=== PATIENT | male | born 1935 | race Caucasian/White ===

== ENCOUNTER → 2016-06-29 | Outpatient (CLI) | payer OTHER ==
[~2016-06-29] MED LIST: BIMA0.01 OPB; CZR50 PO; ONDA4TAB7 SL
[2016-06-29 17:31] LABS: BASO % 0.6 %; BASO ABS # 0.04 K/uL (0-0.2); COMPLETE YES; EOS % 3.6 %; HEMATOCRIT 33.9 % (42-52); IG% 0.2 %; LYMPH ABS # 2.61 K/uL (1.2-3.4); MEAN CELL VOLUME 90.2 fL (80-100); MEAN CORPUSCULAR HEMOGLOBIN 31.1 pg (25-34); MEAN CORPUSCULAR HGB CONC 34.5 g/dl (32-36); MEAN PLATELET VOLUME 11.3 fL (7.4-10.4); MONO % 6.3 %; NEUT % 48.3 %; PLATELET COUNT 207 K/uL (130-400); RED BLOOD COUNT 3.76 M/uL (4.7-6.1); WHITE BLOOD COUNT 6.36 K/uL (4.8-10.8)
[2016-06-29 17:43] LABS: ALT/SGPT 29 U/L (12-78); BLOOD UREA NITROGEN 26 mg/dl (7-18); BUN/CREATININE RATIO 26.1 (10-20); CALCIUM 8.7 mg/dl (8.5-10.1); CARBON DIOXIDE 27 mmol/L (21-32); CHLORIDE 105 mmol/L (98-107); CHOLESTEROL 195 mg/dl (0-200); CREATININE 0.99 mg/dl (0.60-1.40); GLUCOSE 89 mg/dl (70-99); POTASSIUM 4.2 mmol/L (3.5-5.1); SODIUM 140 mmol/L (136-145)
[2016-06-29 17:54] LABS: ALB/GLOB RATIO 1.2 (0.9-2); ALKALINE PHOSPHATASE 63 U/L (45-117); AST/SGOT 25 U/L (15-37); CHOLESTEROL/HDL RATIO 3.8; HDL CHOLESTEROL 51 mg/dl; LDL CHOLESTEROL CALCULATED 96 mg/dl; TRIGLYCERIDES 239 mg/dl (0-150); VERY LOW DENSITY LIPOPROT CALC 48 mg/dl
[2016-06-30 06:22] LABS: ESTIMATED AVERAGE GLUCOSE 120 mg/dl; HA1C FLAG Normal (Normal)
== END | disposition home or self-care (01) ==
LOC: C.LABBFT 12:47
PROVIDERS: ATTEND Internal Medicine
DX: E78.5 Hyperlipidemia, unspecified (principal); R73.01 Impaired fasting glucose; D64.9 Anemia, unspecified

== ENCOUNTER → 2016-07-04 | Outpatient (CLI) | payer OTHER | END | disposition home or self-care (01) | LOC: C.LABSPEC 16:06 | PROVIDERS: ATTEND Internal Medicine | DX: Z00.00 Encounter for general adult medical examination without abnormal findings (principal) ==

== ENCOUNTER → 2016-07-24 | Outpatient (CLI) | payer OTHER ==
[2016-07-24 12:53] LABS: BASO % 0.5 %; BASO ABS # 0.03 K/uL (0-0.2); COMPLETE YES; EOS % 5.4 %; HEMATOCRIT 33.8 % (42-52); LYMPH % 40.2 %; LYMPH ABS # 2.31 K/uL (1.2-3.4); MEAN CELL VOLUME 89.7 fL (80-100); MEAN CORPUSCULAR HEMOGLOBIN 31.6 pg (25-34); MEAN CORPUSCULAR HGB CONC 35.2 g/dl (32-36); MEAN PLATELET VOLUME 11.2 fL (7.4-10.4); MONO % 7.7 %; NEUT % 46.2 %; PLATELET COUNT 212 K/uL (130-400); RED BLOOD COUNT 3.77 M/uL (4.7-6.1); WHITE BLOOD COUNT 5.75 K/uL (4.8-10.8)
[2016-07-24 12:58] LABS: ALT/SGPT 29 U/L (12-78); AMYLASE 31 U/L (25-115); BLOOD UREA NITROGEN 16 mg/dl (7-18); BUN/CREATININE RATIO 19.3 (10-20); CARBON DIOXIDE 30 mmol/L (21-32); CHLORIDE 102 mmol/L (98-107); CREATININE 0.81 mg/dl (0.60-1.40); GLUCOSE 99 mg/dl (70-99); POTASSIUM 3.7 mmol/L (3.5-5.1); SODIUM 138 mmol/L (136-145)
[2016-07-24 13:01] LABS: ALB/GLOB RATIO 1.3 (0.9-2); ALKALINE PHOSPHATASE 64 U/L (45-117); AST/SGOT 27 U/L (15-37)
== END | disposition home or self-care (01) ==
LOC: C.LABBFT 11:06
PROVIDERS: ATTEND Internal Medicine
DX: R10.9 Unspecified abdominal pain (principal)

== ENCOUNTER → 2017-02-13 | Outpatient (CLI) | payer OTHER ==
--- NOTE | 2017-02-13 13:08 | DIAGNOSTIC IMAGING REPORT ---
CHEST 2 VIEWS ROUTINE CLINICAL HISTORY: R29.898 Xiphoid [id number] COMPARISON STUDY: 06/27/2014 FINDINGS: The cardiac and mediastinal contours are normal. There is no evidence of focal pulmonary consolidation. There is no evidence of failure. No pleural effusions are visualized.[ No xiphoid lesions are visualized however conventional radiography is insensitive for the detection of xiphoid abnormalities. IMPRESSION: No active disease in the chest. Electronically signed by: Young Moreau M.D. 02/13/2017 1:07 PM Dictated Date/Time: 02/13/2017 1:06 PM
== END | disposition home or self-care (01) ==
LOC: C.RAD1850 10:46
PROVIDERS: ATTEND Physician Assistant Medical
DX: R29.898 Other symptoms and signs involving the musculoskeletal system (principal)

== ENCOUNTER 2017-04-30 01:09 | Emergency (ER) | payer OTHER ==
[~2017-04-30] VITALS: Ht 193 cm; Wt 78.2 kg
[2017-04-30 01:15] VITALS: TEMP 36.4; Ht 193 cm; Wt 78.2 kg
[2017-04-30] MEDS ORDERED: ONDANSETRON INJ 2 MG/ML 2 ML VIAL IV STA (01:27)
--- NOTE | 2017-04-30 01:28 | EMERGENCY ROOM VISIT NOTE ---
History Report prepared by Adrien: Cesario Bello Under the Supervision of: Dr. Anselmo Sprague D.O. First contact with patient: 01:20 Chief Complaint: ABDOMINAL PAIN Stated Complaint: BURNING STOMACH,LEFT EAR PAIN History of Present Illness The patient is an 81 year old male who presents to the Emergency Room with complaints of persistent abdominal "aching" that he has been experiencing for the past week. He also describes a "burning" sensation in the stomach that he has been experiencing for the past month. The patient states that he came into the Emergency Department this evening because he felt pain in his left ear. He is nauseous but has not vomited to this point. 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 A total of ten systems were reviewed and were otherwise negative. Past Medical & Surgical Medical Problems: (1) Diverticulosis (2) Hyperlipemia Family History No pertinent family history Social History Smoking Status: Never Smoker Marital Status: Housing Status: lives with significant other Occupation Status: retired Current/Historical Medications Scheduled Bimatoprost (Lumigan), 1 DROP OPB HS Allergies Coded Allergies: Atorvastatin (Unverified Allergy, Intermediate, MUSCLE ACHES, CRAMPING, ) Physical Exam Vital Signs Date Time Temp Pulse Resp B/P (MAP) Pulse Ox O2 Delivery O2 Flow Rate FiO2 04/30/17 02:54 65 18 199/93 98 Room Air 04/30/17 01:36 57 04/30/17 01:15 36.4 58 18 186/82 99 Room Air Physical Exam GENERAL: Awake, alert, well-appearing, in no distress HENT: Normocephalic, atraumatic. Oropharynx unremarkable. EYES: Normal conjunctiva. Sclera non-icteric. NECK: Supple. No nuchal rigidity. FROM. No JVD. RESPIRATORY: Clear to auscultation. CARDIAC: Regular rate, normal rhythm. Extremities warm and well perfused. Pulses equal. ABDOMEN: Soft, non-distended. There is a midline abdominal defect present. No midline tenderness or abnormal pulses. No tenderness to palpation. No rebound or guarding. No masses. MUSCULOSKELETAL: Chest examination reveals no tenderness. The back is symmetrical on inspection without obvious abnormality. There is no CVA tenderness to palpation. No joint edema. LOWER EXTREMITIES: Calves are equal size bilaterally and non-tender. No edema. No discoloration. NEURO: Normal sensorium. No sensory or motor deficits noted. SKIN: No rash or jaundice noted. Medical Decision & Procedures ER Provider Diagnostic Interpretation: X ray results as stated below per my interpretation and radiologist interpretation. Other radiology results as stated below per my review and radiologist interpretation: CT ABDOMEN & PELVIS with Contrast: Central mesenteric stranding. This is nonspecific and can be seen with mesenteritis or panniculitis. Distal colong diverticulosis but no diverticula. Dense. No appendicitis. No colitis. NO bowel obstruction. No free air or free fluid. No obstructive uropathy. Small cyst at the lower pole fo the kidney. Gallbladder and pancreas are unremarkable. Laboratory Results 04/30/17 01:35 Red Blood Count 3.51, Mean Corpuscular Volume 87.5, Mean Corpuscular Hemoglobin 31.3, Mean Corpuscular Hemoglobin Concent 35.8, Mean Platelet Volume 10.2 04/30/17 01:35 Test 04/30/17 01:35 04/30/17 02:50 White Blood Count 5.02 K/uL (4.8-10.8) Red Blood Count 3.51 M/uL (4.7-6.1) Hemoglobin 11.0 g/dL (14.0-18.0) Hematocrit 30.7 % (42-52) Mean Corpuscular Volume 87.5 fL (80-100) Mean Corpuscular Hemoglobin 31.3 pg (25-34) Mean Corpuscular Hemoglobin Concent 35.8 g/dl (32-36) Platelet Count 215 K/uL (130-400) Mean Platelet Volume 10.2 fL (7.4-10.4) RDW Standard Deviation 40.2 fL (36.4-46.3) RDW Coefficient of Variation 12.5 % (11.5-14.5) Neutrophils % (Manual) 39.0 % Lymphocytes % (Manual) 17.7 % Variant Lymphocytes % (manual) 28.3 % Monocytes % (Manual) 4.4 % Eosinophils % (Manual) 9.7 % Basophils % (Manual) 0.9 % (0-2) Neutrophils # (Manual) 1.96 K/uL (1.4-6.5) Total Absolute Neutrophils 1.96 K/uL (1.4-6.5) Lymphocytes # (Manual) 0.89 K/uL (1.2-3.4) Absolute Variant Lymphocytes 1.42 K/uL Total Absolute Lymphocytes 2.31 K/uL (1.2-3.4) Monocytes # (Manual) 0.22 K/uL (0.11-0.59) Eosinophils # (Manual) 0.49 K/uL (0-0.5) Basophils # (Manual) 0.05 K/uL (0-0.2) Red Blood Cell Morphology Unremarkable Anion Gap 6.0 mmol/L (3-11) Est Creatinine Clear Calc Drug Dose 85.7 ml/min Estimated GFR () 99.9 Estimated GFR (Non- 86.2 BUN/Creatinine Ratio 19.7 (10-20) Calcium Level 8.6 mg/dl (8.5-10.1) Total Bilirubin 0.4 mg/dl (0.2-1) Direct Bilirubin 0.1 mg/dl (0-0.2) Aspartate Amino Transf (AST/SGOT) 24 U/L (15-37) Alanine Aminotransferase (ALT/SGPT) 23 U/L (12-78) Alkaline Phosphatase 62 U/L (45-117) Total Protein 7.0 gm/dl (6.4-8.2) Albumin 3.8 gm/dl (3.4-5.0) Lipase 158 U/L (73-393) Urine Color YELLOW Urine Appearance CLEAR (CLEAR) Urine pH 6.0 (4.5-7.5) Urine Specific [place] 1.027 (1.000-1.030) Urine Protein NEG (NEG) Urine Glucose (UA) NEG (NEG) Urine Ketones NEG (NEG) Urine Occult Blood NEG (NEG) Urine Nitrite NEG (NEG) Urine Bilirubin NEG (NEG) Urine Urobilinogen NEG (NEG) Urine Leukocyte Esterase TRACE (NEG) Urine WBC (Auto) 0 /hpf (0-5) Urine RBC (Auto) 0-4 /hpf (0-4) Urine Hyaline Casts (Auto) 0 /lpf (0-5) Urine Epithelial Cells (Auto) 5-10 /lpf (0-5) Urine Bacteria (Auto) NEG (NEG) Laboratory results reviewed by me Medications Administered Medications (Trade) Dose Ordered Sig/Patti Route Start Time Stop Time Status Last Admin Dose Admin Ondansetron HCl (Zofran Inj) 4 mg NOW STAT IV 04/30/17 01:27 04/30/17 01:28 DC 04/30/17 01:35 4 MG ED Course 0122: The patient was evaluated in room A10. A complete history and physical exam was performed. 0127: Ordered Zofran 4 mg IV. 0259: I reevaluated the patient. Discussed results and discharge instructions: He verbalized understanding and agreement. The patient is ready for discharge. Medical Decision Differential diagnosis: Etiologies such as appendicitis, diverticulitis, PUD, biliary pathology, UTI, pancreatitis, obstruction, mesenteric ischemia, aortic pathology, infections, inflammatory bowel disease, renal colic, as well as others were entertained. Patient has been having abdominal pain intermittently for the past 2 months. Patient denies fever vomiting diarrhea. Patient's complaint is nonspecific is diffuse in nature. Patient's lab work is normal. Patient's CAT scan is nonspecific I do not suspect the patient having ischemic bowel. On repeat examination the patient's abdomen at 3:40 AM, it is soft nontender there is no rebound rigidity guarding. I discussed the evaluation and recommended that the patient follow-up with his primary care physician and a GI physician Impression Primary Impression: Nonspecific abdominal pain Scribe Attestation The scribe's documentation has been prepared under my direction and personally reviewed by me in its entirety. I confirm that the note above accurately reflects all work, treatment, procedures, and medical decision making performed by me. Departure Information Dispostion Home / Self-Care Referrals Zack Melendez M.D. (PCP) Wayne Thao M.D. Patient Instructions Abdominal Pain - [facility], [facility] Additional Instructions Follow-up with your primary care physician this week. Return for increased pain fever or any concerns. Follow up with gastroenterology
[2017-04-30] MEDS ORDERED: OPTIRAY 320 IV PRN (01:30)
[2017-04-30 01:44] LABS: HEMATOCRIT 30.7 % (42-52); MEAN CELL VOLUME 87.5 fL (80-100); MEAN CORPUSCULAR HEMOGLOBIN 31.3 pg (25-34); MEAN CORPUSCULAR HGB CONC 35.8 g/dl (32-36); MEAN PLATELET VOLUME 10.2 fL (7.4-10.4); PLATELET COUNT 215 K/uL (130-400); RED BLOOD COUNT 3.51 M/uL (4.7-6.1); WHITE BLOOD COUNT 5.02 K/uL (4.8-10.8)
[2017-04-30 02:02] LABS: BUN/CREATININE RATIO 19.7 (10-20); CALCIUM 8.6 mg/dl (8.5-10.1); CREATININE 0.76 mg/dl (0.60-1.40); POTASSIUM 3.7 mmol/L (3.5-5.1)
[2017-04-30 02:53] LABS: BASO ABS # 0.05 K/uL (0-0.2); BASOPHIL % 0.9 % (0-2); COMPLETE YES; EOSINOPHIL % 9.7 %; LYMPH ABS # 0.89 K/uL (1.2-3.4); LYMPHOCYTE % 17.7 %; VARIANT LYM ABS # 1.42 K/uL; VARIANT LYMPHOCYTE % 28.3 %
[2017-04-30 03:05] LABS: URINE APPEARANCE CLEAR (CLEAR); URINE BILIRUBIN NEG (NEG); URINE COLOR YELLOW; URINE NITRITE NEG (NEG); URINE SPECIFIC GRAVITY 1.027 (1.000-1.030); UROBILINOGEN NEG (NEG); ZZUR CULT IF INDIC CLEAN CATCH NO
[2017-04-30 03:13] LABS: MANUAL MICROSCOPIC REQUIRED? NO; REVIEW REQ? NO
[2017-04-30 03:57] VITALS: BP 199/89; PULSE 60; O2SAT 99
--- NOTE | 2017-04-30 07:19 | DIAGNOSTIC IMAGING REPORT ---
CT OF THE ABDOMEN AND PELVIS WITH CONTRAST CLINICAL HISTORY: Abdominal pain. COMPARISON STUDY: Abdominal series June 27, [address] of the abdomen and pelvis July 31, 2016. TECHNIQUE: Following IV administration of 93 mL of Optiray-320, axial images of the abdomen and pelvis were obtained from the lung bases to the proximal femurs. Images were reviewed in the axial, sagittal, and coronal planes. IV contrast was administered without complication. A dose lowering technique was utilized adhering to the principles of ALARA. CT DOSE: 330.49 mGy.cm FINDINGS: Visualized portions of the lower chest demonstrate several subpleural nodules which measure up to 6 mm. These are similar to CT of July 31, 2016 and include a 6 mm left lower lobe nodule shown on image 7 and a 6 mm right lower lobe nodule shown on image 3. A small hiatal hernia is present. The liver, spleen, adrenal glands and pancreas are unremarkable as is the right kidney. There is no hydronephrosis. There is no peripancreatic infiltration. No biliary or pancreatic ductal dilatation is present. A 1.5 cm cyst within the lower pole of the left kidney is noted. There is moderate atherosclerotic plaque of the abdominal aorta and branch vessels. There is mild mesenteric infiltration which is unchanged and of doubtful significance. Extensive sigmoid diverticulosis is noted without evidence for acute diverticulitis. There is no evidence for a bowel obstruction. The appendix is normal. There is evidence for previous right inguinal hernia repair with mesh. Several sclerotic lesions likely reflect bone on this. There are no suspicious osseous lesions. IMPRESSION: 1. No acute process within the abdomen or pelvis. 2. Extensive sigmoid diverticulosis without evidence for acute diverticulitis. 3. Moderate atherosclerotic plaque of the abdominal aorta and major branch vessels, suboptimally assessed on this non-CTA exam. 4. No bowel obstruction. Normal appendix. Electronically signed by: Donald Morse M.D. 04/30/2017 7:18 AM Dictated Date/Time: 04/30/2017 7:07 AM
== END 2017-04-30 03:55 | disposition home or self-care (01) ==
LOC: C.EDB 01:10 → C.EDA 03:55
DX: R10.9 Unspecified abdominal pain (principal); H92.02 Otalgia, left ear; R11.0 Nausea; K57.90 Diverticulosis of intestine, part unspecified, without perforation or abscess without bleeding; E78.5 Hyperlipidemia, unspecified

== ENCOUNTER 2017-05-10 21:48 | Emergency (ER) | payer OTHER ==
[~2017-05-10] VITALS: Ht 182.9 cm; Wt 78.9 kg
[~2017-05-10 21:48] MED LIST changes: -CZR50 PO; -ONDA4TAB7 SL
[2017-05-10 21:50] VITALS: TEMP 36.5; Ht 182.9 cm; Wt 78.9 kg
[2017-05-10] MEDS ORDERED: FAMOTIDINE 20 MG TAB PO STA (22:02)
[2017-05-10] MEDS ORDERED: SUCRALFATE 1 GM TAB PO STA (22:02)
[2017-05-10] MEDS ORDERED: GI COCKTAIL PO STA (22:02)
--- NOTE | 2017-05-10 22:08 | EMERGENCY ROOM VISIT NOTE ---
History Report prepared by Adrien: Wayne Lamb Under the Supervision of: Dr. Keith Martel M.D. First contact with patient: 21:56 Chief Complaint: CHEST PAIN Stated Complaint: CHEST PAIN, DIZZY- CARDIAC HX History of Present Illness The patient is an 81 year old male who presents to the Emergency Room with complaints of intermittent abdominal pressure beginning earlier today. The patient states he was here for similar symptoms two weeks ago, and he has follow up with GI four days from now. He reports his abdominal pain radiates to his chest. The patient notes he had episodes of hypertension, but that is the only cardiac history he has. Source of History: patient Onset: earlier today Position: abdomen Quality: pressure Timing: intermittent Associated Symptoms: + chest pain Review of Systems See HPI for pertinent positives & negatives. A total of 10 systems reviewed and were otherwise negative. Past Medical & Surgical Medical Problems: (1) Diverticulosis (2) Hyperlipemia Family History Heart disease Hypertension Social History Smoking Status: Never Smoker Marital Status: Housing Status: lives with significant other Occupation Status: retired Current/Historical Medications Scheduled Bimatoprost (Lumigan), 1 DROP OPB QAM Podiatric Products (Tinactin Foot/Sneaker Suresh), 1 SPRAY TOP DIRECTED Tamsulosin HCl (Tamsulosin HCl), 0.4 MG PO DAILY Allergies Coded Allergies: Atorvastatin (Unverified Allergy, Intermediate, MUSCLE ACHES, CRAMPING, ) Physical Exam Vital Signs Date Time Temp Pulse Resp B/P (MAP) Pulse Ox O2 Delivery O2 Flow Rate FiO2 05/10/17 23:32 78 16 156/88 98 05/10/17 23:01 59 16 173/88 99 Room Air 05/10/17 22:26 98 Room Air 05/10/17 22:03 59 05/10/17 21:57 97 Room Air 05/10/17 21:50 36.5 63 18 190/85 98 Room Air Physical Exam GENERAL: Patient is a healthy-appearing well-nourished 81 year old male. HEAD: Normocephalic atraumatic EYES: Ocular movements intact pupils equal and react to light OROPHARYNX mucous membranes are moist no exudates present no erythema or edema present NECK: Supple no nuchal rigidity CHEST: Good equal expansion LUNGS: Clear and equal to auscultation CARDIAC: Normal S1 and S2 ABDOMEN: Soft, minimally tender, no guarding or rebounding BACK: No CVA tenderness EXTREMITIES: No pain upon palpation normal muscle strength in all groups no clubbing cyanosis or edema NEURO: Patient is following commands and answering questions appropriately. Alert and oriented x3 Cranial Nerves 2-12 grossly intact Medical Decision & Procedures ER Provider Diagnostic Interpretation: Radiology results as stated below per my review and radiologist interpretation: CHEST ONE VIEW PORTABLE HISTORY: Pt c/o epigastric pain COMPARISON: Chest 02/13/2017. FINDINGS: The lungs are clear. Cardiac silhouette is normal in size. No pleural effusions. No pneumothorax. IMPRESSION: No acute process. Electronically signed by: Jose Walters M.D. 05/10/2017 11:11 PM Dictated Date/Time: 05/10/2017 11:09 PM [address] AND PELVIS CT WITH IV CONTRAST CT DOSE: 365.15 mGy.cm HISTORY: Pt c/o epigastric pain TECHNIQUE: Multiaxial CT images of the abdomen and pelvis were performed following the use of intravenous contrast. A dose lowering technique was utilized adhering to the principles of ALARA. COMPARISON STUDY: Abdomen and pelvis CT 04/30/2017. FINDINGS: There is a 6 mm subpleural nodule within the left lower lobe on image 17 and a 6 mm subpleural nodule within the right lower lobe on image 1. No pneumoperitoneum. No pneumatosis. Stable sclerotic foci within the L3 vertebral body and left posterior iliac bone. Mild bladder wall thickening, unchanged. Moderate calcified plaque within the normal caliber abdominal aorta. Mild central mesenteric stranding, unchanged. This favors a mesenteric panniculitis. No significant retroperitoneal or pelvic lymphadenopathy. Mild bilateral perinephric edema, unchanged. This is likely chronic. A 1.5 cm hypodense lesion within the lower pole the left kidney. This likely represents a cyst. No ureteral stones are hydronephrosis. There are 2 subcentimeter hypodense lesions within the pancreatic tail with the largest measuring 9 mm. 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 The liver, spleen, and adrenal glands are unremarkable. Normal gallbladder. Suggestion of prior right inguinal hernia repair. Colonic diverticulosis. No bowel wall thickening or obstruction. Normal appendix. IMPRESSION: 1. Overall, no significant change compared the prior study. 2. No bowel wall thickening or obstruction. 3. Colonic diverticulosis. 4. Mild bladder wall thickening which could be chronic. Recommend correlation with urinalysis. 5. Additional findings as described above. Electronically signed by: Jose Walters M.D. 05/10/2017 11:01 PM Dictated Date/Time: 05/10/2017 10:53 PM Laboratory Results 05/10/17 22:04 Red Blood Count 3.64, Mean Corpuscular Volume 86.5, Mean Corpuscular Hemoglobin 31.6, Mean Corpuscular Hemoglobin Concent 36.5, Mean Platelet Volume 10.5 05/10/17 22:04 Test 05/10/17 22:04 05/10/17 22:17 05/10/17 23:40 White Blood Count 5.48 K/uL (4.8-10.8) Red Blood Count 3.64 M/uL (4.7-6.1) Hemoglobin 11.5 g/dL (14.0-18.0) Hematocrit 31.5 % (42-52) Mean Corpuscular Volume 86.5 fL (80-100) Mean Corpuscular Hemoglobin 31.6 pg (25-34) Mean Corpuscular Hemoglobin Concent 36.5 g/dl (32-36) Platelet Count 218 K/uL (130-400) Mean Platelet Volume 10.5 fL (7.4-10.4) RDW Standard Deviation 39.2 fL (36.4-46.3) RDW Coefficient of Variation 12.2 % (11.5-14.5) Neutrophils % (Manual) 32.7 % Lymphocytes % (Manual) 27.4 % Variant Lymphocytes % (manual) 28.3 % Monocytes % (Manual) 2.7 % Eosinophils % (Manual) 7.1 % Basophils % (Manual) 1.8 % (0-2) Neutrophils # (Manual) 1.79 K/uL (1.4-6.5) Total Absolute Neutrophils 1.79 K/uL (1.4-6.5) Lymphocytes # (Manual) 1.50 K/uL (1.2-3.4) Absolute Variant Lymphocytes 1.55 K/uL Total Absolute Lymphocytes 3.05 K/uL (1.2-3.4) Monocytes # (Manual) 0.15 K/uL (0.11-0.59) Eosinophils # (Manual) 0.39 K/uL (0-0.5) Basophils # (Manual) 0.10 K/uL (0-0.2) Large Platelets 1+ Est Creatinine Clear Calc Drug Dose 86.2 ml/min Estimated GFR () 100.4 Estimated GFR (Non- 86.6 BUN/Creatinine Ratio 12.5 (10-20) Calcium Level 8.7 mg/dl (8.5-10.1) Total Bilirubin 0.4 mg/dl (0.2-1) Direct Bilirubin 0.1 mg/dl (0-0.2) Aspartate Amino Transf (AST/SGOT) 27 U/L (15-37) Alanine Aminotransferase (ALT/SGPT) 23 U/L (12-78) Alkaline Phosphatase 62 U/L (45-117) Total Creatine Kinase 110 U/L (39-308) Creatine Kinase MB 1.4 ng/ml (0.5-3.6) Creatine Kinase MB Ratio 1.3 (0-3.0) Troponin I < 0.015 ng/ml (0-0.045) Total Protein 7.2 gm/dl (6.4-8.2) Albumin 4.1 gm/dl (3.4-5.0) Lipase 173 U/L (73-393) Bedside Hemoglobin 10.9 g/dl (14.0-18.0) Bedside Hematocrit 32 % (42-52) Bedside Sodium 126 mEq/L (135-144) Bedside Potassium 4.1 mEq/L (3.3-5.0) Bedside Chloride 92 mEq/L (101-112) Bedside Total CO2 24 mEq/l (24-31) Anion Gap 15.0 mmol/L (16-25) Bedside Blood Urea Nitrogen 9 mg/dl (7-18) Bedside Creatinine 0.7 mg/dl (0.6-1.3) Bedside Glucose (other) 112 mg/dl (70-99) Bedside Ionized Calcium ([place]) 1.18 mmol/l (1.12-1.32) Urine Color YELLOW Urine Appearance CLEAR (CLEAR) Urine pH 8.5 (4.5-7.5) Urine Specific [place] 1.026 (1.000-1.030) Urine Protein NEG (NEG) Urine Glucose (UA) NEG (NEG) Urine Ketones NEG (NEG) Urine Occult Blood NEG (NEG) Urine Nitrite NEG (NEG) Urine Bilirubin NEG (NEG) Urine Urobilinogen NEG (NEG) Urine Leukocyte Esterase NEG (NEG) Labs reviewed by ED physician. Medications Administered Medications (Trade) Dose Ordered Sig/Patti Route Start Time Stop Time Status Last Admin Dose Admin Famotidine (Pepcid Tab) 20 mg NOW STAT PO 05/10/17 22:02 05/10/17 22:06 DC 05/10/17 22:16 20 MG Sucralfate (Carafate Tab) 1 gm NOW STAT PO 05/10/17 22:02 05/10/17 22:06 DC 05/10/17 22:16 1 GM Lidocaine HCl (Viscous Lidocaine 2% Soln) 20 ml STK-MED ONCE .ROUTE 05/10/17 22:10 05/10/17 22:11 DC 05/10/17 22:17 10 ML Al Hydroxide/Mg Hydroxide (Maalox Susp) 30 ml STK-MED ONCE .ROUTE 05/10/17 22:10 05/10/17 22:11 DC 05/10/17 22:16 30 ML ECG Indication: abdominal pain Rate (beats per minute): 60 Rhythm: sinus rhythm Findings: 1st degree AV block, LBBB (incomplete), no acute ischemic change, no ectopy Comparison ECG Date: 06/27/14 Change: no significant change ED Course 2157: Past medical records reviewed. The patient was evaluated in room C11B. A complete history and physical examination was performed. 2201: Ordered Sucralfate 1gm PO, Famotidine 20mg PO, Gi Cocktail 24ml PO 0: Ordered Maalox Susp 30ml .ROUTE, Lidocaine HCl 20ml .ROUTE 2308: Upon reexamination the patient is feeling better. I discussed results and treatment plan with the patient. She verbalizes agreement and understanding. The patient is ready for discharge. Medical Decision Differential diagnosis: Etiologies such as appendicitis, diverticulitis, PUD, biliary pathology, UTI, pancreatitis, obstruction, mesenteric ischemia, aortic pathology, infections, inflammatory bowel disease, renal colic, as well as others were entertained. This is an 81-year-old male who presents emergency department complaining of abdominal pain. The patient was given a GI cocktail, Pepcid and Carafate in the emergency department. Repeat examination revealed much improvement the patient's symptoms. An EKG as well as cardiac enzymes were obtained and I did offer the patient chest pain rule out admission however he wishes to go home as he is feeling better. I believe this is reasonable as I suspect his pain is abdominal in etiology. I recommended a clear liquid diet for the next 48 hours until he has follow-up with gastroenterology. Patient was in agreement with the treatment plan. Medication Reconcilliation Current Medication List: was personally reviewed by me Blood Pressure Screening Patient's blood pressure: Elevated blood pressure Blood pressure disposition: Referred to PCP Impression Primary Impression: Epigastric pain Scribe Attestation The scribe's documentation has been prepared under my direction and personally reviewed by me in its entirety. I confirm that the note above accurately reflects all work, treatment, procedures, and medical decision making performed by me. Departure Information Dispostion Home / Self-Care Referrals Zack Melendez M.D. (PCP) Forms Call Back Authorization, HOME CARE DOCUMENTATION FORM, IMPORTANT VISIT INFORMATION Patient Instructions ED Epigastric Pain Geovani, Erin [facility] Additional Instructions Take 5 ml Maalox before every meal and at bedtime Clear liquid diet next 48 hours Take Pepcid before bedtime Follow up with gastroenterology You were found to have an elevated blood pressure today (>120 sytolic or >90 diastolic). Per medicare guidelines, you need to follow up with this blood pressure screening with your Primary Care Physician (PCP). For a new PCP call [phone]. You have been examined and treated today on an emergency basis only. This is not a substitute for, or an effort to provide, complete comprehensive medical care. It is impossible to recognize and treat all injuries or illnesses in a single emergency department visit. It is therefore important that you follow up closely with Dr Melendez. Call as soon as possible for an appointment. Thank you for your time and consideration. I look forward to speaking with you again soon. Please don't hesitate to call us if you have any questions.
[2017-05-10] MEDS ORDERED: LIDOCAINE HCL 2% VISC SOLN 20 ML UDC ONE (22:10)
[2017-05-10] MEDS ORDERED: ALUMINUM/MAGNESIUM SUSP 30 ML UDC ONE (22:10)
[2017-05-10] MEDS ORDERED: OPTIRAY 320 IV PRN (22:15)
[2017-05-10] MEDS ORDERED: FLM4 PO (22:19)
[2017-05-10] MEDS ORDERED: [UNRECOGNIZED DRUG - OTHER] TOP (22:19)
[2017-05-10 22:26] VITALS: O2SAT 98
[2017-05-10 22:30] LABS: ISTAT CREATININE 0.7 mg/dl (0.6-1.3); ISTAT HEMOGLOBIN 10.9 g/dl (14.0-18.0); ISTAT IONIZED CALCIUM 1.18 mmol/l (1.12-1.32)
[2017-05-10 22:31] LABS: HEMATOCRIT 31.5 % (42-52); MEAN CELL VOLUME 86.5 fL (80-100); MEAN CORPUSCULAR HEMOGLOBIN 31.6 pg (25-34); MEAN CORPUSCULAR HGB CONC 36.5 g/dl (32-36); MEAN PLATELET VOLUME 10.5 fL (7.4-10.4); PLATELET COUNT 218 K/uL (130-400); RED BLOOD COUNT 3.64 M/uL (4.7-6.1); WHITE BLOOD COUNT 5.48 K/uL (4.8-10.8)
[2017-05-10 22:44] LABS: ALT/SGPT 23 U/L (12-78); BLOOD UREA NITROGEN 9 mg/dl (7-18); BUN/CREATININE RATIO 12.5 (10-20); CALCIUM 8.7 mg/dl (8.5-10.1); CARBON DIOXIDE 25 mmol/L (21-32); CHLORIDE 94 mmol/L (98-107); CREATININE 0.75 mg/dl (0.60-1.40); GLUCOSE 106 mg/dl (70-99); SODIUM 125 mmol/L (136-145)
[2017-05-10 22:49] LABS: ALKALINE PHOSPHATASE 62 U/L (45-117); AST/SGOT 27 U/L (15-37); CKMB/CK RATIO 1.3 (0-3.0)
[2017-05-10 23:01] LABS: BASOPHIL % 1.8 % (0-2); COMPLETE YES; EOSINOPHIL % 7.1 %; LARGE PLATELETS 1+; LYMPHOCYTE % 27.4 %; NEUTROPHILS % 32.7 %; VARIANT LYM ABS # 1.55 K/uL; VARIANT LYMPHOCYTE % 28.3 %
--- NOTE | 2017-05-10 23:03 | DIAGNOSTIC IMAGING REPORT ---
ABDOMEN AND PELVIS CT WITH IV CONTRAST CT DOSE: 365.15 mGy.cm HISTORY: Pt c/o epigastric pain TECHNIQUE: Multiaxial CT images of the abdomen and pelvis were performed following the use of intravenous contrast. A dose lowering technique was utilized adhering to the principles of ALARA. COMPARISON STUDY: Abdomen and pelvis CT 04/30/2017. FINDINGS: There is a 6 mm subpleural nodule within the left lower lobe on image 17 and a 6 mm subpleural nodule within the right lower lobe on image 1. No pneumoperitoneum. No pneumatosis. Stable sclerotic foci within the L3 vertebral body and left posterior iliac bone. Mild bladder wall thickening, unchanged. Moderate calcified plaque within the normal caliber abdominal aorta. Mild central mesenteric stranding, unchanged. This favors a mesenteric panniculitis. No significant retroperitoneal or pelvic lymphadenopathy. Mild bilateral perinephric edema, unchanged. This is likely chronic. A 1.5 cm hypodense lesion within the lower pole the left kidney. This likely represents a cyst. No ureteral stones are hydronephrosis. There are 2 subcentimeter hypodense lesions within the pancreatic tail with the largest measuring 9 mm. 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 The liver, spleen, and adrenal glands are unremarkable. Normal gallbladder. Suggestion of prior right inguinal hernia repair. Colonic diverticulosis. No bowel wall thickening or obstruction. Normal appendix. IMPRESSION: 1. Overall, no significant change compared the prior study. 2. No bowel wall thickening or obstruction. 3. Colonic diverticulosis. 4. Mild bladder wall thickening which could be chronic. Recommend correlation with urinalysis. 5. Additional findings as described above. Electronically signed by: Jose Walters M.D. 05/10/2017 11:01 PM Dictated Date/Time: 05/10/2017 10:53 PM
--- NOTE | 2017-05-10 23:12 | DIAGNOSTIC IMAGING REPORT ---
CHEST ONE VIEW PORTABLE HISTORY: Pt c/o epigastric pain COMPARISON: Chest 02/13/2017. FINDINGS: The lungs are clear. Cardiac silhouette is normal in size. No pleural effusions. No pneumothorax. IMPRESSION: No acute process. Electronically signed by: Jose Walters M.D. 05/10/2017 11:11 PM Dictated Date/Time: 05/10/2017 11:09 PM
[2017-05-10 23:32] VITALS: BP 156/88; PULSE 78; O2SAT 98
[2017-05-10 23:48] LABS: URINE APPEARANCE CLEAR (CLEAR); URINE BILIRUBIN NEG (NEG); URINE COLOR YELLOW; URINE NITRITE NEG (NEG); URINE PH 8.5 (4.5-7.5); URINE SPECIFIC GRAVITY 1.026 (1.000-1.030); UROBILINOGEN NEG (NEG); ZZUR CULT IF INDIC CLEAN CATCH NO
[2017-05-10 23:54] LABS: MANUAL MICROSCOPIC REQUIRED? NO; REVIEW REQ? NO
== END 2017-05-10 23:33 | disposition home or self-care (01) ==
LOC: C.EDB 21:49 → C.EDC 23:33
DX: R10.13 Epigastric pain (principal); Z82.49 Family history of ischemic heart disease and other diseases of the circulatory system

== ENCOUNTER → 2017-05-24 | Outpatient (CLI) | payer OTHER ==
[~2017-05-24] MED LIST changes: +FLM4 PO; +ONDA4TAB65 PO; +PANT1TAB3 PO; +SINCALIDE INJ 1.5 MCG in SODIUM CHLORIDE 0.9% 100ML 100 ML IV ONE; +[UNRECOGNIZED DRUG - OTHER] TOP
--- NOTE | 2017-05-24 10:38 | DIAGNOSTIC IMAGING REPORT ---
NUCLEAR MEDICINE HEPATOBILIARY SCAN WITH GALLBLADDER EJECTION FRACTION CLINICAL HISTORY: Epigastric pain. COMPARISON: CT of the abdomen and pelvis May 10, 2017. TECHNIQUE: 5. mCi of technetium 99m Choletec IV was injected at 8:00 AM on May 24, 2017. Immediately following injection, imaging of the abdomen was carried out for 60 minutes in the anterior projection. At this time, 1.5 mcg of Sincalide was injected IV as per protocol. Imaging was performed for an additional 45 minutes to estimate a gallbladder ejection fraction. FINDINGS: Hepatic uptake of radiotracer was prompt and homogeneous. Activity is identified within the common bile duct and small bowel at 10 minutes. Gallbladder activity was noted at 25 minutes. Following injection of sincalide, gallbladder ejection fraction was diminished at 19%. Normal is greater than 30-35%. IMPRESSION: 1. No evidence of acute cholecystitis. 2. Mildly diminished gallbladder ejection fraction of 19%. Electronically signed by: Donald Morse M.D. 05/24/2017 10:36 AM Dictated Date/Time: 05/24/2017 10:35 AM
== END | disposition home or self-care (01) ==
LOC: C.NUCL 07:51
PROVIDERS: ATTEND Internal Medicine Gastroenterology
DX: R10.13 Epigastric pain (principal)

== ENCOUNTER 2017-06-01 09:35 | Inpatient (IN) | payer OTHER ==
[~2017-06-01] VITALS: Ht 182.9 cm; Wt 71.0 kg
[~2017-06-01 09:35] MED LIST changes: -ONDA4TAB65 PO; -PANT1TAB3 PO; -SINCALIDE INJ 1.5 MCG in SODIUM CHLORIDE 0.9% 100ML 100 ML IV ONE
[2017-06-01] MEDS ORDERED: FAMOTIDINE 20MG/5ML IV PUSH IV STA (09:47)
[2017-06-01] MEDS ORDERED: SODIUM CHLORIDE 0.9% 1000ML 1,000 ML IV STA (09:47)
[2017-06-01] MEDS ORDERED: ONDANSETRON INJ 2 MG/ML 2 ML VIAL IV STA (09:47)
[2017-06-01] MEDS ORDERED: PANT1TAB3 PO (10:01)
[2017-06-01] MEDS ORDERED: ONDA4TAB65 PO (10:01)
--- NOTE | 2017-06-01 10:16 | EMERGENCY ROOM VISIT NOTE ---
History Report prepared by Adrien: Teri Redding Under the Supervision of: Dr. Alex Nguyen M.D. First contact with patient: 09:44 Chief Complaint: SHORTNESS OF BREATH Stated Complaint: SHORTNESS OF BREATH/DIZZINESS/NEAR SYNCOPE History of Present Illness The patient is a 81 year old male who presents to the Emergency Room with complaints of persistent shortness of breath that began this morning. He notes that before he went to bed last night he had a terrible headache. The patient states that 2 days ago he had an endoscopy performed, noting everything was normal. He notes that since his endoscopy he has been constipated, fatigued, and dizzy. The patient states he is frequently nauseous, but it his symptom worsened in the last 2 days. He denies any vomiting, abdominal pain, or taking any blood thinners. Source of History: patient Onset: this morning Position: chest Quality: other (shortness of breath) Timing: other (persistent) Associated Symptoms: + headache, + nausea, + fatigue, No vomiting, No abdominal pain Review of Systems See HPI for pertinent positives and negatives. A total of ten systems were reviewed and were otherwise negative. Past Medical & Surgical Medical Problems: (1) BPH w/o urinary obs/LUTS (2) Diverticulosis (3) HTN (hypertension) (4) Hyperlipemia Surgical Problems: (1) History of bilateral mastoidectomy (2) History of right inguinal hernia repair (3) History of tonsillectomy and adenoidectomy Family History Heart disease Hypertension Social History Smoking Status: Never Smoker Marital Status: Housing Status: lives with significant other Occupation Status: retired Current/Historical Medications Scheduled Pantoprazole (Protonix), 40 MG PO BID Tamsulosin HCl (Tamsulosin HCl), 0.4 MG PO DAILY Scheduled PRN Ondansetron Hcl (Zofran), 4 MG PO Q6H PRN for Nausea or Vomiting Allergies Coded Allergies: Atorvastatin (Unverified Allergy, Intermediate, MUSCLE ACHES, CRAMPING, ) Physical Exam Vital Signs Date Time Temp Pulse Resp B/P (MAP) Pulse Ox O2 Delivery O2 Flow Rate FiO2 06/01/17 13:15 64 06/01/17 12:12 67 18 162/81 100 Room Air 06/01/17 11:03 69 18 179/100 100 Room Air 06/01/17 09:54 98 Room Air 06/01/17 09:48 36.5 67 20 176/105 98 Room Air 06/01/17 09:44 62 Physical Exam GENERAL: Awake, alert, fatigued appearing, in no distress HENT: Dry mucous membranes. Normocephalic, atraumatic. Oropharynx unremarkable. EYES: Normal conjunctiva. Sclera non-icteric. NECK: Supple. No nuchal rigidity. FROM. No JVD. RESPIRATORY: Clear to auscultation. CARDIAC: Regular rate, normal rhythm. Extremities warm and well perfused. Pulses equal. ABDOMEN: Soft, non-distended. No tenderness to palpation. No rebound or guarding. No masses. RECTAL: Deferred. MUSCULOSKELETAL: Chest examination reveals no tenderness. The back is symmetrical on inspection without obvious abnormality. There is no CVA tenderness to palpation. No joint edema. LOWER EXTREMITIES: Calves are equal size bilaterally and non-tender. No edema. No discoloration. NEURO: Normal sensorium. No sensory or motor deficits noted. SKIN: No rash or jaundice noted. Medical Decision & Procedures ER Provider Diagnostic Interpretation: Radiology results as stated below per my review and radiologist interpretation: CHEST ONE VIEW PORTABLE CLINICAL HISTORY: 81 years-old Male presenting with sob. TECHNIQUE: Portable upright AP view of the chest was obtained. COMPARISON: 05/10/2017. FINDINGS: Atherosclerosis of the aortic arch. Cardiac silhouette normal in size. Previously noted subcentimeter left lower lobe subpleural nodule is not apparent on this radiograph. Few calcified granuloma suggested. Lungs and pleural spaces clear. Osseous structures normal. Upper abdomen normal. IMPRESSION: 1. No acute cardiopulmonary disease. Electronically signed by: Orestes Huber M.D. 06/01/2017 10:50 AM Dictated Date/Time: 06/01/2017 10:49 AM Laboratory Results 06/01/17 10:00 Red Blood Count 3.64, Mean Corpuscular Volume 84.1, Mean Corpuscular Hemoglobin 31.3, Mean Corpuscular Hemoglobin Concent 37.3 Test 06/01/17 10:00 06/01/17 10:10 06/01/17 11:00 White Blood Count 3.90 K/uL (4.8-10.8) Red Blood Count 3.64 M/uL (4.7-6.1) Hemoglobin 11.4 g/dL (14.0-18.0) Hematocrit 30.6 % (42-52) Mean Corpuscular Volume 84.1 fL (80-100) Mean Corpuscular Hemoglobin 31.3 pg (25-34) Mean Corpuscular Hemoglobin Concent 37.3 g/dl (32-36) Platelet Count 194 K/uL (130-400) Neutrophils % (Manual) 41.5 % Lymphocytes % (Manual) 20.4 % Variant Lymphocytes % (manual) 24.8 % Monocytes % (Manual) 8.8 % Eosinophils % (Manual) 2.7 % Basophils % (Manual) 1.8 % (0-2) Neutrophils # (Manual) 1.62 K/uL (1.4-6.5) Total Absolute Neutrophils 1.62 K/uL (1.4-6.5) Lymphocytes # (Manual) 0.80 K/uL (1.2-3.4) Absolute Variant Lymphocytes 0.97 K/uL Total Absolute Lymphocytes 1.76 K/uL (1.2-3.4) Monocytes # (Manual) 0.34 K/uL (0.11-0.59) Eosinophils # (Manual) 0.11 K/uL (0-0.5) Basophils # (Manual) 0.07 K/uL (0-0.2) Red Blood Cell Morphology Unremarkable Erythrocyte Sedimentation Rate 18 mm/hr (0-14) Osmolality 252 mOsm/kg (280-300) Total Bilirubin 0.6 mg/dl (0.2-1) Direct Bilirubin 0.1 mg/dl (0-0.2) Aspartate Amino Transf (AST/SGOT) 24 U/L (15-37) Alanine Aminotransferase (ALT/SGPT) 23 U/L (12-78) Alkaline Phosphatase 59 U/L (45-117) Troponin I < 0.015 ng/ml (0-0.045) Total Protein 7.0 gm/dl (6.4-8.2) Albumin 3.9 gm/dl (3.4-5.0) Lipase 161 U/L (73-393) Influenza Type A (RT-PCR) Neg for Influ A (NEG) Influenza Type A Antigen Neg for Influ A (NEG) Influenza Type B Antigen Neg for Influ B (NEG) Influenza Type B (RT-PCR) Neg for Influ B (NEG) Urine Color ORANGE Urine Appearance CLEAR (CLEAR) Urine pH 7.5 (4.5-7.5) Urine Specific [place] 1.011 (1.000-1.030) Urine Protein NEG (NEG) Urine Glucose (UA) NEG (NEG) Urine Ketones TRACE (NEG) Urine Occult Blood NEG (NEG) Urine Nitrite NEG (NEG) Urine Bilirubin NEG (NEG) Urine Urobilinogen NEG (NEG) Urine Leukocyte Esterase NEG (NEG) Urine Osmolality 283 mOms/kg (500-800) Urine Random Sodium 87 mEq/L Laboratory results reviewed by me Medications Administered Medications (Trade) Dose Ordered Sig/Patti Route Start Time Stop Time Status Last Admin Dose Admin Famotidine (Pepcid 20mg Iv Push) 20 mg NOW STAT IV 06/01/17 09:47 06/01/17 09:52 DC 06/01/17 10:07 20 MG Ondansetron HCl (Zofran Inj) 4 mg NOW STAT IV 06/01/17 09:47 06/01/17 09:52 DC 06/01/17 10:07 4 MG Sodium Chloride 1,000 ml @ 999 mls/hr Q1H1M STAT IV 06/01/17 09:47 06/01/17 10:47 DC 06/01/17 10:07 999 MLS/HR ED Course 0946: The patient was evaluated in room B7. A complete history and physical exam was performed. 1240: The patient has hyponatremia, with a sodium of 122 which is down from 126 from a couple weeks ago. 1259: I discussed the patient with ENRIQUE Llanes - He will evaluate the patient for further treatment. Medical Decision I reviewed the patient's past medical history, medications, and the nursing notes as described above. The patient's presentation and history were concerning for pneumonia, bronchitis , urinary tract infection, influenza, viral syndrome, electrolyte abnormalities , gastritis, gastroenteritis, ACS, and PE. The patient is an 81-year-old gentleman with a past medical history of recently diagnosed diminished gallbladder EF on HIDA scan followed by GI with recent endoscopy 2 days ago presents emergency Department with nausea and fatigue per hpi. On arrival the patient is fatigued appearing but in no acute distress, afebrile with stable vital signs. Abdomen is soft nontender. Labs notable for sodium 122 down from 126 recently. Labs otherwise unremarkable with wbc wnl. CXR negative. UA negative. Given downtrending sodium in the setting of the patient's symptoms, will admit. D/w ENRIQUE Drummond hospitalist, who will admit the patient for further management. Medication Reconcilliation Current Medication List: was personally reviewed by me Consults Time Called: [phone] Consulting Physician: ENRIQUE Llanes Returned Call: [phone] I discussed the patient with Dr. Wills - He will evaluate the patient for further treatment. Impression Primary Impression: Hyponatremia Scribe Attestation The scribe's documentation has been prepared under my direction and personally reviewed by me in its entirety. I confirm that the note above accurately reflects all work, treatment, procedures, and medical decision making performed by me. Departure Information Dispostion Being Evaluated By Hospitalist Referrals Zack Melendez M.D. (PCP) Forms HOME CARE DOCUMENTATION FORM, IMPORTANT VISIT INFORMATION Patient Instructions My [facility]
[2017-06-01 10:31] LABS: ALBUMIN 3.9 gm/dl (3.4-5.0); ALT/SGPT 23 U/L (12-78); AST/SGOT 24 U/L (15-37); BLOOD UREA NITROGEN 7 mg/dl (7-18); CALCIUM 8.8 mg/dl (8.5-10.1); CARBON DIOXIDE 26 mmol/L (21-32); CREATININE 0.81 mg/dl (0.60-1.40); GLUCOSE 101 mg/dl (70-99); LIPASE 161 U/L (73-393); POTASSIUM 3.8 mmol/L (3.5-5.1); SODIUM 122 mmol/L (136-145)
[2017-06-01 10:36] LABS: ALKALINE PHOSPHATASE 59 U/L (45-117)
--- NOTE | 2017-06-01 10:52 | DIAGNOSTIC IMAGING REPORT ---
CHEST ONE VIEW PORTABLE CLINICAL HISTORY: 81 years-old Male presenting with sob. TECHNIQUE: Portable upright AP view of the chest was obtained. COMPARISON: 05/10/2017. FINDINGS: Atherosclerosis of the aortic arch. Cardiac silhouette normal in size. Previously noted subcentimeter left lower lobe subpleural nodule is not apparent on this radiograph. Few calcified granuloma suggested. Lungs and pleural spaces clear. Osseous structures normal. Upper abdomen normal. IMPRESSION: 1. No acute cardiopulmonary disease. Electronically signed by: Orestes Huber M.D. 06/01/2017 10:50 AM Dictated Date/Time: 06/01/2017 10:49 AM
[2017-06-01 11:13] LABS: INFLUENZA B ANTIGEN Neg for Influ B (NEG)
[2017-06-01 11:42] LABS: HEMATOCRIT 30.6 % (42-52); HEMOGLOBIN 11.4 g/dL (14.0-18.0); MEAN CELL VOLUME 84.1 fL (80-100); MEAN CORPUSCULAR HEMOGLOBIN 31.3 pg (25-34); MEAN CORPUSCULAR HGB CONC 37.3 g/dl (32-36); PLATELET COUNT 194 K/uL (130-400)
[2017-06-01 12:30] LABS: INFLUENZA A PCR Neg for Influ A (NEG); INFLUENZA B PCR Neg for Influ B (NEG)
[2017-06-01 13:56] LABS: SODIUM RANDOM URINE 87 mEq/L
[2017-06-01 14:11] LABS: OSMOLALITY,URINE 283 mOms/kg (500-800)
[2017-06-01] MEDS ORDERED: ALUMINUM/MAGNESIUM/SIMETH (MAALOX MAX) 30 ML UDC PO PRN (14:45)
[2017-06-01] MEDS ORDERED: POLYETHYLENE (MIRALAX) 17 GM PACK PO PRN (14:45)
[2017-06-01] MEDS ORDERED: ACETAMINOPHEN 325 MG TAB PO PRN (14:45)
[2017-06-01] MEDS ORDERED: ONDANSETRON INJ 2 MG/ML 2 ML VIAL IV PRN (14:45)
[2017-06-01] MEDS ORDERED: MAGNESIUM HYDROXIDE SUSP 30 ML UDC PO PRN (14:45)
[2017-06-01] MEDS ORDERED: OPTIRAY 320 IV PRN (15:00)
--- NOTE | 2017-06-01 15:00 | History and Physical ---
History & Physical Date & Time of Service: Jun 01, 2017 at 14:45 Chief Complaint: Shortness Of Breath/Dizziness/Near Syncope Primary Care Physician: Zack Melendez M.D. History of Present Illness Source: patient, family Mr. Siddiqui is an 81 y/o male with PMHx of BPH, HLD, HTN, Diverticulosis, Chronic Constipation, and Chronic Abdominal Pain who presents to the ED c/o SOB , Generalized Weakness, and Near-Syncope. Patient states when he went to bed last night he had a diffuse all-over headache. He states when he woke up this morning he noticed SOB. He denies chronic issues with SOB but reports an isolated event when he came to the ED approx. 2 weeks ago. Currently SOB resolved. His headache is waxing and waning. This AM he noticed that he was extremely weak and felt like he was going to pass out. He stated he was so weak that he needed his family to help him come to the ED. He said he was told his Na was low when he was here approx. 2 weeks ago but denies chronic issues. He also reports dizziness, states he does have some chronic issues due to ear problems and had B/L mastoidectomy at 19 yrs old. He also reports continued abdominal pain that has been going on for a long time but has been more bothersome over the past month. He states no specific cause has been identified for this. He has F/U with Dr. Thao who performed an EGD on 05/30 due to suspicion of peptic ulcer disease but no findings to support this. HIDA scan revealed a mildly reduced GB EF of 19% and does has RUQ tenderness but somewhat atypical of GB disease. On examination today he does not present with an acute abdomen but tenses with deep palpation of the RUQ, RLQ, and LLQ and reports tenderness. Does not have a direct Mercer's sign though. He also states he has chronic constipation with last BM on 05/30. He states he takes daily Miralax that seems to help. He feels that since his EGD he has been more bloated, constipated , weak, and having more gas. He reports poor oral intake due to lack of appetite. He notes that he has about a 10 lb weight loss in the previous year and feels he is still losing weight. He reports chills but no documented fever. Currently has about 6 blankets on him in the ED. He is due to see Dr. Godinez on for consultation for possible cholecystectomy. 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 Upon arrival, patient is hypertensive and his Na is 122. Past Medical/Surgical History Medical Problems: (1) BPH w/o urinary obs/LUTS (2) Diverticulosis (3) HTN (hypertension) (4) Hyperlipemia Surgical Problems: (1) History of bilateral mastoidectomy (2) History of right inguinal hernia repair (3) History of tonsillectomy and adenoidectomy Medical Problems: (1) Diverticulosis Status: Chronic (2) Hyperlipemia Status: Chronic Family History Heart disease Hypertension Social History Smoking Status: Never Smoker Smokeless Tobacco Use: No Alcohol Use: none Drug Use: none Marital Status: Housing status: lives with family Occupational Status: retired Multi-Drug Resistant Organisms History of MDRO: No Allergies Coded Allergies: Atorvastatin (Unverified Allergy, Intermediate, MUSCLE ACHES, CRAMPING, ) Home Medications Scheduled Pantoprazole (Protonix), 40 MG PO BID Tamsulosin HCl (Tamsulosin HCl), 0.4 MG PO DAILY Scheduled PRN Ondansetron Hcl (Zofran), 4 MG PO Q6H PRN for Nausea or Vomiting Review of Systems Constitutional: + chills, + weakness, + fatigue, + problem reported (headache) , No fever Eyes: No worsening of vision, No eye pain, No diplopia ENT: No nasal symptoms, No sore throat, No trouble swallowing Respiratory: + shortness of breath (isolated this AM - currently resolved), No cough Cardiovascular: No chest pain, No palpitations Abdomen: + pain (RUQ into RLQ with some radiation to L side), + nausea, + constipation, No vomiting, No diarrhea, No GI bleeding Musculoskeletal: No swelling, No calf pain Genitourinary - Male: + urinary frequency (at night - chronic 2/2 BPH), No dysuria Hematologic / Lymphatic: No abnormal bleeding/bruising, No clotting problems Integumentary: No rash, No new/changing skin lesions Physical Exam Vital Signs Date Time Temp Pulse Resp B/P (MAP) Pulse Ox O2 Delivery O2 Flow Rate FiO2 06/01/17 13:15 64 06/01/17 12:12 67 18 162/81 100 Room Air 06/01/17 11:03 69 18 179/100 100 Room Air 06/01/17 09:54 98 Room Air 06/01/17 09:48 36.5 67 20 176/105 98 Room Air 06/01/17 09:44 62 General Appearance: no apparent distress, + thin Head: normocephalic, atraumatic Eyes: sclerae normal ENT: hearing grossly normal Neck: supple, no JVD, trachea midline Respiratory/Chest: lungs clear, normal breath sounds, no respiratory distress, no accessory muscle use Cardiovascular: regular rate, rhythm, no gallop, no murmur Abdomen/GI: normal bowel sounds, soft, + tenderness (RUQ, RLQ, LLQ and tenses with deep palpation; no acute abdomen) Extremities/Musculoskelatal: no calf tenderness, no pedal edema Neurologic/Psych: no motor/sensory deficits, alert, oriented x 3 Skin: normal color, warm/dry Diagnostics Laboratory Results Results Past 24 Hours Test 06/01/17 10:00 06/01/17 10:10 06/01/17 11:00 06/01/17 14:20 Range/Units White Blood Count 3.90 4.8-10.8 K/uL Red Blood Count 3.64 4.7-6.1 M/uL Hemoglobin 11.4 14.0-18.0 g/dL Hematocrit 30.6 42-52 % Mean Corpuscular Volume 84.1 80-100 fL Mean Corpuscular Hemoglobin 31.3 25-34 pg Mean Corpuscular Hemoglobin Concent 37.3 32-36 g/dl Platelet Count 194 130-400 K/uL Neutrophils % (Manual) 41.5 % Lymphocytes % (Manual) 20.4 % Variant Lymphocytes % (manual) 24.8 % Monocytes % (Manual) 8.8 % Eosinophils % (Manual) 2.7 % Basophils % (Manual) 1.8 0-2 % Neutrophils # (Manual) 1.62 1.4-6.5 K/uL Total Absolute Neutrophils 1.62 1.4-6.5 K/uL Lymphocytes # (Manual) 0.80 1.2-3.4 K/uL Absolute Variant Lymphocytes 0.97 K/uL Total Absolute Lymphocytes 1.76 1.2-3.4 K/uL Monocytes # (Manual) 0.34 0.11-0.59 K/uL Eosinophils # (Manual) 0.11 0-0.5 K/uL Basophils # (Manual) 0.07 0-0.2 K/uL Red Blood Cell Morphology Unremarkable Sodium Level 122 136-145 mmol/L Potassium Level 3.8 3.5-5.1 mmol/L Chloride Level 88 98-107 mmol/L Carbon Dioxide Level 26 21-32 mmol/L Anion Gap 8.0 3-11 mmol/L Blood Urea Nitrogen 7 7-18 mg/dl Creatinine 0.81 0.60-1.40 mg/dl Est Creatinine Clear Calc Drug Dose 79.9 ml/min Estimated GFR () 97.3 Estimated GFR (Non- 83.9 BUN/Creatinine Ratio 8.8 10-20 Random Glucose 101 70-99 mg/dl Osmolality 252 280-300 mOsm/kg Calcium Level 8.8 8.5-10.1 mg/dl Total Bilirubin 0.6 0.2-1 mg/dl Direct Bilirubin 0.1 0-0.2 mg/dl Aspartate Amino Transf (AST/SGOT) 24 15-37 U/L Alanine Aminotransferase (ALT/SGPT) 23 12-78 U/L Alkaline Phosphatase 59 45-117 U/L Troponin I < 0.015 0-0.045 ng/ml Total Protein 7.0 6.4-8.2 gm/dl Albumin 3.9 3.4-5.0 gm/dl Lipase 161 73-393 U/L Influenza Type A (RT-PCR) Neg for Influ A NEG Influenza Type A Antigen Neg for Influ A NEG Influenza Type B Antigen Neg for Influ B NEG Influenza Type B (RT-PCR) Neg for Influ B NEG Urine Color ORANGE Urine Appearance CLEAR CLEAR Urine pH 7.5 4.5-7.5 Urine Specific [place] 1.011 1.000-1.030 Urine Protein NEG NEG Urine Glucose (UA) NEG NEG Urine Ketones TRACE NEG Urine Occult Blood NEG NEG Urine Nitrite NEG NEG Urine Bilirubin NEG NEG Urine Urobilinogen NEG NEG Urine Leukocyte Esterase NEG NEG Urine Osmolality 283 500-800 mOms/kg Urine Random Sodium 87 mEq/L Test 06/01/17 14:26 Range/Units Diagnostic Radiology CHEST ONE VIEW PORTABLE CLINICAL HISTORY: 81 years-old Male presenting with sob. TECHNIQUE: Portable upright AP view of the chest was obtained. COMPARISON: 05/10/2017. FINDINGS: Atherosclerosis of the aortic arch. Cardiac silhouette normal in size. Previously noted subcentimeter left lower lobe subpleural nodule is not apparent on this radiograph. Few calcified granuloma suggested. Lungs and pleural spaces clear. Osseous structures normal. Upper abdomen normal. IMPRESSION: 1. No acute cardiopulmonary disease EKG Sinus rhythm with 1st degree A-V block Septal infarct , age undetermined Abnormal ECG When compared with ECG of 10-MAY-2017 21:54, No significant change was found Impression Assessment and Plan Mr. Siddiqui is an 81 y/o male with PMHx of BPH, HLD, HTN, Diverticulosis, Chronic Constipation, and Chronic Abdominal Pain who presents to the ED c/o SOB , Generalized Weakness, and Near-Syncope. He was found to be hypertensive with hyponatremia. Symptomatic Hyponatremia: Suspect Poor Oral Intake - Patient appears euvolemic on examination - no JVD, no peripheral edema, oral mucosa wet - Per records he has been hyponatremia approx. one month that we can confirm - Given 1 L in ED - will repeat BMP now and obtain current Na level - plan to only correct by 6 mmol/24 hours and plan for only approx. 3 mmol in a one hour period - Continue to trend BMP Q6H and will adjust fluids per findings - Obtain neuro checks to monitor for any changes in mentation with risk of osmotic demyelination syndrome if Na corrects too quickly - Obtain orthostatic BPs - Obtain Urine Osm, Serum Osm, random urine Na, TSH, random cortisol Chronic Abdominal Pain: - Reports worsening over past couple days - possible diverticulitis? Constipation? - Has had multiple studies with no direct cause identified - does have chronic constipation - is due to see Dr. 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 symptoms however rare and diagnosis of exclusion - Protonix 40 mg BID - started due to suspicion of peptic ulcer disease -- will continue - Miralax daily HTN: - Significant BPs - states he knows he has a BP issue but denies previous medications; likely contributing to his headache vs hyponatremia - Hydralazine PRN - Likely needs D/Cd on BP medication vs referral to PCP given age, chronic dizziness, and possible situational DVT Prophylaxis: Heparin 5000 units SC BID Code Status: FULL RESUSCITATION Disposition: - Monitor on tele overnight given pre-syncopal sensation and monitor rhythm - likely this is related to hyponatremia I personally interviewed and examined the patient. I agree with history of present illness and physical exam mentioned above, I also performed my own history taking and examination. Past medical history and review of system has been obtained by myself I reviewed all pertinent labs and studies Reviewed current medications I discussed and formulated of the assessment and plan mentioned above. Please refer to the Summary mentioned below. 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, also possible diverticulitis, presented to the hospital with generalized weakness nausea vomiting decreased appetite found to have low sodium level Hyponatremia/failure to thrive/generalized fatigue, multifactorial, anorexia, decreased solute intake, We'll order CT scan abdomen and pelvis with oral and IV contrast, previous CAT scan was reviewed with radiologist recommended a repeat check serum and urine osmolality , [R/O hyponatremia with low osmolality] check TSH and cortisol level order urine sodium and potassium consider sodium tablets if sodium level do not improve Nephrology consult if needed if sodiumlevel fail to rise Consider starting Tolvaptan while inpatient, to monitor closely sodium level but will leave this decision up to line controller as he should be consulted prior to starting tolvaptan. Monitor sodium level closely/every 8 hours, avoid correcting sodium with a rate faster than 6 mmol per day Check orthostatic vitals daily Avoid a rate of correction > 1 mmol/4 hours INF hydration Continue boost supplement General Appearance: Thin, pale, slightly dehydrated not in acute distress Eyes: normal Sclerae, extraocular muscle intact ENT: hearing grossly normal Neck: supple Respiratory/Chest: normal air entry bilateral ,no respiratory distress, no accessory muscle use Cardiovascular: regular rate, rhythm, no murmur Abdomen: Slightly tender, soft, no masses Extremities: no edema Neurologic/Psychiatric: Awake alert oriented times place and person moves all extremities sensation intact cranial nerves II-12 appear to be intact Skin: normal color, warm/dry, no rash Deirdre Marcus MD, [facility] Level of Care Telemetry Resuscitation Status FULL RESUSCITATION VTE Prophylaxis VTE Risk Assessment Done? Y/N: Yes Risk Level: Moderate Given or contraindicated: Unfractionated heparin SQ
[2017-06-01] MEDS ORDERED: HydrALAZINE HCL 20 MG/ML VIAL IV. PRN (15:15)
[2017-06-01] MEDS ORDERED: MoRPHine SULFATE 2 MG/ML CARP IV PRN (15:30)
[2017-06-01 15:31] LABS: CALCIUM 8.6 mg/dl (8.5-10.1); CREATININE 0.73 mg/dl (0.60-1.40); POTASSIUM 3.9 mmol/L (3.5-5.1)
[2017-06-01 16:34] VITALS: BP 186/91; PULSE 75; TEMP 36.5; O2SAT 98; BMI 22.6
[2017-06-01] MEDS: SODIUM CHLORIDE 0.9% 1000ML 1,000 ML IV SCH (16:45)
[2017-06-01 17:02] VITALS: O2SAT 98
--- NOTE | 2017-06-01 18:49 | DIAGNOSTIC IMAGING REPORT ---
CT ABD/PELVIS IV AND ORAL CONT CLINICAL HISTORY: Abdominal pain. Possible mass. COMPARISON STUDY: 05/10/2017 TECHNIQUE: Following the IV administration of 93 mL of Optiray-320, CT scan of the abdomen and pelvis was performed from the lung bases to the proximal femurs. Images are reviewed in the axial, sagittal, and coronal planes. IV contrast was administered without complication. A dose lowering technique was utilized adhering to the principles of ALARA. CT DOSE: 342.67 mGy.cm FINDINGS: Lower chest: There is a 5 mm pleural-based right lower lobe pulmonary nodule, and partially visualized 5 mm left lower lobe pleural-based nodule. Both of these nodules were present on the preceding study Liver: The contrast-enhanced liver is normal in size, contour, and attenuation. There is no intrahepatic biliary ductal dilatation. The hepatic veins and portal veins are patent. Gallbladder: Unremarkable. Spleen: Normal in size and attenuation. Pancreas: There is a stable 8 mm cystic lesion of the pancreatic body and stable 9 mm cystic lesion within the pancreatic tail. 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 Adrenal glands: Unremarkable. Kidneys: There is a 17 mm lower pole left renal cyst. Bowel: There are no transition zones indicate bowel obstruction. There is sigmoid diverticulosis. There are no acute peridiverticular inflammatory changes. The appendix appears normal. Peritoneum: There is no intraperitoneal free air or abdominal ascites. Vasculature: The abdominal aorta is normal in course and caliber. Adenopathy: None. Pelvic viscera: There is minimal prostate enlargement. Skeletal structures: There is a stable 1 cm sclerotic lesion within the posterior aspect of the left iliac bone. There is a stable 15 mm sclerotic lesion within the L2 vertebra. IMPRESSION: 1. No acute intra-abdominal or pelvic findings 2. No evidence of bowel obstruction. No evidence of free air 3. Colonic diverticulosis. No evidence of acute diverticulitis 4. Normal appendix 5. 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 06/01/2017 6:39 PM Dictated Date/Time: 06/01/2017 6:33 PM
[2017-06-01] MEDS ORDERED: PNEUMOCOCCAL ADMINISTRATION CHARGE ONE (19:00)
[2017-06-01] MEDS ORDERED: PNEUMOCOCCAL POLYSACCHARIDES 25 MCG/0.5 ML VIAL/SYR IM. ONE (19:00)
[2017-06-01 19:44] VITALS: BP 165/75; PULSE 76; TEMP 36.5; O2SAT 99
[2017-06-01 21:24] LABS: CALCIUM 8.6 mg/dl (8.5-10.1); CREATININE 0.73 mg/dl (0.60-1.40); POTASSIUM 3.9 mmol/L (3.5-5.1)
[2017-06-01] MEDS: PANTOprazole SOD 40 MG TAB PO SCH (21:39)
[2017-06-01 23:47] VITALS: BP 161/69; PULSE 72; TEMP 36.6; O2SAT 97
[2017-06-02] VITALS (8 sets, daily range): BP systolic 131–192; BP diastolic 67–87; PULSE 61–92; TEMP 36.3–36.5; O2SAT 91–98
[2017-06-02 03:11] LABS: CALCIUM 8.7 mg/dl (8.5-10.1); CREATININE 0.68 mg/dl (0.60-1.40)
[2017-06-02] MEDS: SODIUM CHLORIDE 0.9% 1000ML 1,000 ML IV SCH ×2 (05:19→19:20)
[2017-06-02] MEDS: POLYETHYLENE (MIRALAX) 17 GM PACK PO SCH (08:40)
[2017-06-02] MEDS: PANTOprazole SOD 40 MG TAB PO SCH ×2 (08:40→19:19)
[2017-06-02] MEDS: AMLODIPINE BESYLATE 5 MG TAB PO SCH (19:20)
--- NOTE | 2017-06-02 21:11 | Progress Note ---
Subjective Date of Service: Jun 02, 2017. Subjective Pt evaluation today including: conversation w/ patient, conversation w/ family , physical exam 81 yo male presents to the hospital with weight loss and loss of energy over the course of the past 3 months. I obtained history from both the son and the patient. The patient states that he had pain which is mainly in the RUQ and radites to the epigastric region. Pain worsens with eating, and occurs almost immediately. Patient reports that eating clear food like jello does not worsen his pain, but eating food like a Big Mac does. Patient reports that this pain was then followed by unintentional weight loss. He states he may have lost 15 lbs. Patient reports never having a colonoscopy. Patient is concerned about possibly having a malignancy and would like to know the results of the ct scan. Patient denies nausea, vomiting, diarrhea, chest pain. He has felt more fatigued over the course of the past month as he has continued to lose weight Problem List Medical Problems: (1) Epigastric pain Status: Acute (2) Nonspecific abdominal pain Status: Acute Review of Systems Constitutional: No fever, No chills ENT: No hearing loss, No unusual epistaxis Respiratory: No cough, No sputum Cardiac: No chest pain, No orthopnea Abdomen: No pain, No nausea Musculoskeletal: No joint pain Neurologic: No memory loss, No paralysis Psychiatric: No depression symptoms, No anhedonism Heme: No abnormal bleeding/bruising Endo: + fatigue Skin: No rash, No itch All Other Systems: Reviewed and Negative Medications Current Inpatient Medications Medications (Trade) Dose Ordered Sig/Patti Route Start Time Stop Time Status Last Admin Dose Admin Acetaminophen (Tylenol Tab) 650 mg Q4H PRN PO 06/01/17 14:45 07/01/17 14:44 Al Hydrox/Mg Hydrox/Simethicone (Maalox Max Susp) 15 ml Q4H PRN PO 06/01/17 14:45 07/01/17 14:44 Magnesium Hydroxide (Milk Of Magnesia Susp) 30 ml Q12H PRN PO 06/01/17 14:45 07/01/17 14:44 Ondansetron HCl (Zofran Inj) 4 mg Q6H PRN IV 06/01/17 14:45 07/01/17 14:44 06/01/17 16:44 4 MG Pantoprazole Sodium (Protonix Tab) 40 mg BID PO 06/01/17 21:00 07/01/17 20:59 06/03/17 08:47 40 MG Ioversol (Optiray 320) 111 ml UD PRN IV 06/01/17 15:00 06/05/17 14:59 Polyethylene (Miralax Powder Packet) 17 gm DAILY PO 06/02/17 09:00 07/01/17 14:44 06/03/17 08:47 17 GM Hydralazine HCl (HydrALAZINE INJ) 5 mg Q6 PRN IV. 06/01/17 15:15 07/01/17 15:14 06/02/17 16:10 5 MG Morphine Sulfate (MoRPHine SULFATE INJ) 1 mg Q4H PRN IV 06/01/17 15:30 06/15/17 15:29 Sodium Chloride 1,000 ml @ 75 mls/hr [id number] IV 06/01/17 16:30 07/01/17 16:29 06/03/17 08:47 75 MLS/HR Amlodipine Besylate (Norvasc Tab) 5 mg QPM PO 06/02/17 21:00 07/02/17 20:59 06/02/17 19:20 5 MG Objective Vital Signs Date Time Temp Pulse Resp B/P (MAP) Pulse Ox O2 Delivery O2 Flow Rate FiO2 06/02/17 19:37 36.4 74 20 180/69 (106) 98 Room Air 74 180/80 (113) 84 166/82 (110) 06/02/17 16:32 167/67 (100) 06/02/17 16:00 Room Air 06/02/17 14:42 36.4 65 18 184/87 (119) 96 Room Air 68 192/75 (114) 73 182/81 (114) 06/02/17 12:00 Room Air 06/02/17 11:08 36.3 61 18 184/82 (116) 97 Room Air 66 186/82 (116) 74 181/70 (107) 06/02/17 08:00 97 Room Air 06/02/17 07:13 36.4 61 18 160/68 (98) 97 Room Air 78 138/76 (96) 92 131/82 (98) 06/02/17 05:05 36.4 70 16 152/76 (101) 91 Room Air 06/02/17 04:09 Room Air 06/01/17 23:48 Room Air 06/01/17 23:47 36.6 72 17 161/69 (99) 97 Room Air Physical Exam General Appearance: WD/WN, no apparent distress Neck: supple, no adenopathy Respiratory/Chest: chest non-tender, lungs clear, normal breath sounds Cardiovascular: regular rate, rhythm, + pertinent finding (pedal edema) Abdomen: normal bowel sounds, soft, + tenderness (deep palpation on RUQ) Extremities: normal range of motion Neurologic/Psychiatric: alert Skin: normal color Lymphatic: no adenopathy Laboratory Results Last 24 Hours Test 06/02/17 02:45 Sodium Level 126 mmol/L Potassium Level 4.0 mmol/L Chloride Level 94 mmol/L Carbon Dioxide Level 24 mmol/L Anion Gap 8.0 mmol/L Blood Urea Nitrogen 5 mg/dl Creatinine 0.68 mg/dl Est Creatinine Clear Calc Drug Dose 92.8 ml/min Estimated GFR () 104.5 Estimated GFR (Non- 90.2 BUN/Creatinine Ratio 8.1 Random Glucose 105 mg/dl Calcium Level 8.7 mg/dl Assessment and Plan WEIGHT LOSS SECONDARY TO DECREASE PO INTAKE in a 81 yo male with intermittent RUQ pain for past 3 months Weight loss secondary to poor intake Mr. Siddiqui is an 81 y/o male with PMHx of BPH, HLD, HTN, Diverticulosis, Chronic Constipation, and Chronic Abdominal Pain who presents to the ED c/o SOB , Generalized Weakness, and Near-Syncope. He was found to be hypertensive with hyponatremia. Patient is admitted. Lack of energy and weight loss likely attributed to poor PO intake Will consult with general surgery for possible elective cholecystectomy as patient has had studies in the past. Patient had a recent hepatobiliary scan () which showed the following 1. No evidence of acute cholecystitis. 2. Mildly diminished gallbladder ejection fraction of 19%. Will await Gen surg input. Will consider consulting GI service in AM. Patient is currently tolerating PO CLEAR LIQUID DIET. Hyponatremia: Sodium has improved. will monitor. Still remains low. - Patient appears euvolemic on examination - no JVD, no peripheral edema, oral mucosa wet - Per records he has been hyponatremia approx. one month that we can confirm will continue current sodium IV rate at 75 ml/hr - Continue to trend BMP Q6H and will adjust fluids per findings - Obtain neuro checks to monitor for any changes in mentation with risk of osmotic demyelination syndrome if Na corrects too quickly Chronic Abdominal Pain: - Has had multiple studies with no direct cause identified - does have chronic constipation - is due to see Dr. Godinez on 06/12 to consider cholecystectomy - would like to see in-hospital if possible and could consider consultation CT-scan was negative. - Protonix 40 mg BID - started due to suspicion of peptic ulcer disease -- will continue - Miralax daily HTN: - BP continues to be elevated - Hydralazine PRN -added amlodipine. DVT Prophylaxis: Heparin 5000 units SC BID Code Status: FULL RESUSCITATION I spent 1 hour managing patient: this included: interview, ordering labs, consults, discussing case with patient and family. reviewing old records, and performing an exam. Continued [facility] stay due to: home environment unsafe for pt Discharge planning: uncertain
[2017-06-03 02:50] VITALS: BP 144/68; PULSE 63; TEMP 36.5; O2SAT 98
[2017-06-03 07:23] VITALS: BP 174/80; PULSE 65; TEMP 36.3; O2SAT 98
[2017-06-03 07:38] LABS: HEMATOCRIT 28.6 % (42-52); HEMOGLOBIN 10.5 g/dL (14.0-18.0); MEAN CELL VOLUME 84.6 fL (80-100); MEAN CORPUSCULAR HEMOGLOBIN 31.1 pg (25-34); MEAN CORPUSCULAR HGB CONC 36.7 g/dl (32-36); PLATELET COUNT 210 K/uL (130-400); RED CELL DISTRIBUTION WIDTH CV 12.4 % (11.5-14.5); RED CELL DISTRIBUTION WIDTH SD 38.4 fL (36.4-46.3); WHITE BLOOD COUNT 3.97 K/uL (4.8-10.8)
[2017-06-03 08:02] LABS: CALCIUM 8.5 mg/dl (8.5-10.1); CREATININE 0.68 mg/dl (0.60-1.40); POTASSIUM 3.6 mmol/L (3.5-5.1)
[2017-06-03] MEDS: SODIUM CHLORIDE 0.9% 1000ML 1,000 ML IV SCH ×2 (08:47→23:59)
[2017-06-03] MEDS: PANTOprazole SOD 40 MG TAB PO SCH ×2 (08:47→21:10)
[2017-06-03] MEDS: POLYETHYLENE (MIRALAX) 17 GM PACK PO SCH (08:47)
--- NOTE | 2017-06-03 09:05 | Surgery Consultation ---
Consultation Date of Consultation: Jun 03, 2017. Attending Physician: Leonel Preciado M.D. Reason for Consultation: Right upper quadrant abdominal pain History of Present Illness 81-year-old male admitted with weakness following upper endoscopy a few days ago. On arrival to the emergency department he was noted to be hypertensive and had hyponatremia. He had a CT scan of his abdomen which was unremarkable. He has a history of diffuse achy abdominal pain that started April 27. This is intermittent and does not appear to be related to food. It happens once every few days. He seems to complain of pain more in his lower abdomen, but occasionally has pain in his epigastric region. He has been following with gastroenterology. He had an ultrasound of his abdomen though this is unclear whether it is a right upper quadrant ultrasound or mesenteric ultrasound. He had a HIDA scan performed which showed no acute cholecystitis but did have a gallbladder ejection fraction of 19%. He states that he did not have reproduction of symptoms or any pain during the exam. He had an upper endoscopy that was performed on May 31, and per his report there were no ulcers or abnormal findings, but biopsies were taken. The day after endoscopy he started feeling weak and dizzy and was brought to the emergency department by his family. He denies any current abdominal pain, though he does feel a little bit of heartburn. He does note that he started a new medication for his prostate in March. Past Medical/Surgical History Medical Problems: (1) Epigastric pain Status: Acute (2) Nonspecific abdominal pain Status: Acute Family History Heart disease Hypertension Social History Smoking Status: Never Smoker Smokeless Tobacco Use: No Alcohol Use: none Drug Use: none Marital Status: Housing Status: lives with significant other Occupation Status: retired Allergies Coded Allergies: Atorvastatin (Unverified Allergy, Intermediate, MUSCLE ACHES, CRAMPING, ) Home Medications Scheduled Pantoprazole (Protonix), 40 MG PO BID Tamsulosin HCl (Tamsulosin HCl), 0.4 MG PO DAILY Scheduled PRN Ondansetron Hcl (Zofran), 4 MG PO Q6H PRN for Nausea or Vomiting Current Inpatient Medications Current Inpatient Medications Medications (Trade) Dose Ordered Sig/Patti Route Start Time Stop Time Status Last Admin Dose Admin Acetaminophen (Tylenol Tab) 650 mg Q4H PRN PO 06/01/17 14:45 07/01/17 14:44 Al Hydrox/Mg Hydrox/Simethicone (Maalox Max Susp) 15 ml Q4H PRN PO 06/01/17 14:45 07/01/17 14:44 Magnesium Hydroxide (Milk Of Magnesia Susp) 30 ml Q12H PRN PO 06/01/17 14:45 07/01/17 14:44 Ondansetron HCl (Zofran Inj) 4 mg Q6H PRN IV 06/01/17 14:45 07/01/17 14:44 06/01/17 16:44 4 MG Pantoprazole Sodium (Protonix Tab) 40 mg BID PO 06/01/17 21:00 07/01/17 20:59 06/03/17 08:47 40 MG Ioversol (Optiray 320) 111 ml UD PRN IV 06/01/17 15:00 06/05/17 14:59 Polyethylene (Miralax Powder Packet) 17 gm DAILY PO 06/02/17 09:00 07/01/17 14:44 06/03/17 08:47 17 GM Hydralazine HCl (HydrALAZINE INJ) 5 mg Q6 PRN IV. 06/01/17 15:15 07/01/17 15:14 06/02/17 16:10 5 MG Morphine Sulfate (MoRPHine SULFATE INJ) 1 mg Q4H PRN IV 06/01/17 15:30 06/15/17 15:29 Sodium Chloride 1,000 ml @ 75 mls/hr [id number] IV 06/01/17 16:30 07/01/17 16:29 06/03/17 08:47 75 MLS/HR Amlodipine Besylate (Norvasc Tab) 5 mg QPM PO 06/02/17 21:00 07/02/17 20:59 06/02/17 19:20 5 MG Review of Systems 10 point review of systems negative except as above. Physical Exam Date Time Temp Pulse Resp B/P (MAP) Pulse Ox O2 Delivery O2 Flow Rate FiO2 06/03/17 07:45 Room Air 06/03/17 07:23 36.3 65 16 174/80 (111) 98 Room Air 06/03/17 04:07 Room Air 06/03/17 02:50 36.5 63 18 144/68 (93) 98 Room Air 06/03/17 00:00 Room Air 06/02/17 23:05 36.5 66 18 153/79 (103) 96 Room Air 06/02/17 20:00 Room Air 06/02/17 19:37 36.4 74 20 180/69 (106) 98 Room Air 74 180/80 (113) 84 166/82 (110) 06/02/17 16:32 167/67 (100) 06/02/17 16:00 Room Air 06/02/17 14:42 36.4 65 18 184/87 (119) 96 Room Air 68 192/75 (114) 73 182/81 (114) 06/02/17 12:00 Room Air 06/02/17 11:08 36.3 61 18 184/82 (116) 97 Room Air 66 186/82 (116) 74 181/70 (107) General Appearance: WD/WN, no apparent distress Head: normocephalic, atraumatic Eyes: normal inspection, PERRL, EOMI ENT: normal ENT inspection, TMs normal Neck: supple, no adenopathy, thyroid normal Respiratory/Chest: chest non-tender, lungs clear, normal breath sounds, no respiratory distress Cardiovascular: regular rate, rhythm, no edema, no JVD, normal peripheral pulses Abdomen/GI: normal bowel sounds, non tender, soft, no organomegaly, no pulsatile mass Back: normal inspection, no CVA tenderness, normal range of motion Extremities/Musculoskelatal: normal inspection, no calf tenderness, normal range of motion, non-tender Neurologic/Psych: lead housekeeper II-XII nml as tested, alert, normal mood/affect, oriented x 3 Skin: normal color, warm/dry, no rash Lymphatic: no adenopathy Laboratory Results NUCLEAR MEDICINE HEPATOBILIARY SCAN WITH GALLBLADDER EJECTION FRACTION CLINICAL HISTORY: Epigastric pain. COMPARISON: CT of the abdomen and pelvis May 10, 2017. TECHNIQUE: 5. mCi of technetium 99m Choletec IV was injected at 8:00 AM on May 24, 2017. Immediately following injection, imaging of the abdomen was carried out for 60 minutes in the anterior projection. At this time, 1.5 mcg of Sincalide was injected IV as per protocol. Imaging was performed for an additional 45 minutes to estimate a gallbladder ejection fraction. FINDINGS: Hepatic uptake of radiotracer was prompt and homogeneous. Activity is identified within the common bile duct and small bowel at 10 minutes. Gallbladder activity was noted at 25 minutes. Following injection of sincalide, gallbladder ejection fraction was diminished at 19%. Normal is greater than 30-35%. IMPRESSION: 1. No evidence of acute cholecystitis. 2. Mildly diminished gallbladder ejection fraction of 19%. CT ABD/PELVIS IV AND ORAL CONT CLINICAL HISTORY: Abdominal pain. Possible mass. COMPARISON STUDY: 05/10/2017 TECHNIQUE: Following the IV administration of 93 mL of Optiray-320, CT scan of the abdomen and pelvis was performed from the lung bases to the proximal femurs. Images are reviewed in the axial, sagittal, and coronal planes. IV contrast was administered without complication. A dose lowering technique was utilized adhering to the principles of ALARA. CT DOSE: 342.67 mGy.cm FINDINGS: Lower chest: There is a 5 mm pleural-based right lower lobe pulmonary nodule, and partially visualized 5 mm left lower lobe pleural-based nodule. Both of these nodules were present on the preceding study Liver: The contrast-enhanced liver is normal in size, contour, and attenuation. There is no intrahepatic biliary ductal dilatation. The hepatic veins and portal veins are patent. Gallbladder: Unremarkable. Spleen: Normal in size and attenuation. Pancreas: There is a stable 8 mm cystic lesion of the pancreatic body and stable 9 mm cystic lesion within the pancreatic tail. 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 Adrenal glands: Unremarkable. Kidneys: There is a 17 mm lower pole left renal cyst. Bowel: There are no transition zones indicate bowel obstruction. There is sigmoid diverticulosis. There are no acute peridiverticular inflammatory changes. The appendix appears normal. Peritoneum: There is no intraperitoneal free air or abdominal ascites. Vasculature: The abdominal aorta is normal in course and caliber. Adenopathy: None. Pelvic viscera: There is minimal prostate enlargement. Skeletal structures: There is a stable 1 cm sclerotic lesion within the posterior aspect of the left iliac bone. There is a stable 15 mm sclerotic lesion within the L2 vertebra. IMPRESSION: 1. No acute intra-abdominal or pelvic findings 2. No evidence of bowel obstruction. No evidence of free air 3. Colonic diverticulosis. No evidence of acute diverticulitis 4. Normal appendix 5. 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 Last 24 Hours Test 06/03/17 07:07 White Blood Count 3.97 K/uL Red Blood Count 3.38 M/uL Hemoglobin 10.5 g/dL Hematocrit 28.6 % Mean Corpuscular Volume 84.6 fL Mean Corpuscular Hemoglobin 31.1 pg Mean Corpuscular Hemoglobin Concent 36.7 g/dl RDW Standard Deviation 38.4 fL RDW Coefficient of Variation 12.4 % Platelet Count 210 K/uL Mean Platelet Volume 10.0 fL Sodium Level 129 mmol/L Potassium Level 3.6 mmol/L Chloride Level 99 mmol/L Carbon Dioxide Level 24 mmol/L Anion Gap 6.0 mmol/L Blood Urea Nitrogen 5 mg/dl Creatinine 0.68 mg/dl Est Creatinine Clear Calc Drug Dose 87.5 ml/min Estimated GFR () 104.5 Estimated GFR (Non- 90.2 BUN/Creatinine Ratio 6.8 Random Glucose 85 mg/dl Calcium Level 8.5 mg/dl Assessment & Plan 81-year-old male admitted with weakness and lightheadedness, hyponatremia, and hypertension. Consulted for abdominal pain. He does have a HIDA scan that shows abnormal ejection fraction, however his pain was not reproduced during the exam, and his symptoms do not appear to be biliary in nature. Would recommend obtaining the results of his ultrasound and upper endoscopies. If he has not had a right upper quadrant ultrasound I would recommend that this be performed. Agree with GI consultation. If this appears to be related to biliary dyskinesia, this is not an acute surgical issue and may be treated as an outpatient. The patient should be medically optimized and preoperative risk assessment prior to any procedure being performed. Of note, there is an association with tamsulosin and abdominal pain. Consider stopping this medication. Recommendations: No acute surgical intervention recommended at this time Agree with GI consultation Consider stopping tamsulosin Obtain records of ultrasound and upper endoscopies that were performed. If no right upper quadrant ultrasound was performed, then recommend performing this exam Prior to any surgical intervention patient would need preoperative risk assessment If it is determined that the patient would benefit from laparoscopic cholecystectomy, this can be performed on an elective basis
[2017-06-03 11:15] VITALS: BP 164/71; PULSE 58; TEMP 36.5; O2SAT 99
[2017-06-03 14:59] VITALS: BP 159/83; PULSE 61; TEMP 36.4; O2SAT 98
--- NOTE | 2017-06-03 15:38 | Progress Note ---
Subjective Date of Service: Jun 03, 2017. Subjective Pt evaluation today including: conversation w/ patient, physical exam John today feels slightly better in regards to having more energy. Patient reports pain 5 minutes to 30 minutes after eating. Patient reports having an upper GI scope last month by Dr. Thao which was negative. Problem List Medical Problems: (1) Epigastric pain Status: Acute (2) Nonspecific abdominal pain Status: Acute Review of Systems Constitutional: No fever, No chills Respiratory: No cough, No sputum Cardiac: No chest pain Abdomen: No pain, No nausea Musculoskeletal: No joint pain Psychiatric: No depression symptoms Heme: No abnormal bleeding/bruising Endo: No fatigue Skin: No rash All Other Systems: Reviewed and Negative Medications Current Inpatient Medications Medications (Trade) Dose Ordered Sig/Patti Route Start Time Stop Time Status Last Admin Dose Admin Acetaminophen (Tylenol Tab) 650 mg Q4H PRN PO 06/01/17 14:45 07/01/17 14:44 Al Hydrox/Mg Hydrox/Simethicone (Maalox Max Susp) 15 ml Q4H PRN PO 06/01/17 14:45 07/01/17 14:44 Magnesium Hydroxide (Milk Of Magnesia Susp) 30 ml Q12H PRN PO 06/01/17 14:45 07/01/17 14:44 Ondansetron HCl (Zofran Inj) 4 mg Q6H PRN IV 06/01/17 14:45 07/01/17 14:44 06/01/17 16:44 4 MG Pantoprazole Sodium (Protonix Tab) 40 mg BID PO 06/01/17 21:00 07/01/17 20:59 06/03/17 21:10 40 MG Ioversol (Optiray 320) 111 ml UD PRN IV 06/01/17 15:00 06/05/17 14:59 Polyethylene (Miralax Powder Packet) 17 gm DAILY PO 06/02/17 09:00 07/01/17 14:44 06/03/17 08:47 17 GM Hydralazine HCl (HydrALAZINE INJ) 5 mg Q6 PRN IV. 06/01/17 15:15 07/01/17 15:14 06/02/17 16:10 5 MG Morphine Sulfate (MoRPHine SULFATE INJ) 1 mg Q4H PRN IV 06/01/17 15:30 06/15/17 15:29 Sodium Chloride 1,000 ml @ 75 mls/hr [id number] IV 06/01/17 16:30 07/01/17 16:29 06/03/17 23:59 75 MLS/HR Amlodipine Besylate (Norvasc Tab) 5 mg QPM PO 06/02/17 21:00 07/02/17 20:59 06/03/17 21:10 5 MG Duloxetine HCl (Cymbalta Cap) 60 mg QPM PO 06/03/17 21:00 07/03/17 20:59 06/03/17 21:10 60 MG Objective Vital Signs Date Time Temp Pulse Resp B/P (MAP) Pulse Ox O2 Delivery O2 Flow Rate FiO2 06/03/17 14:59 36.4 61 18 159/83 (108) 98 Room Air 06/03/17 12:00 Room Air 06/03/17 11:15 36.5 58 18 164/71 (102) 99 Room Air 06/03/17 07:45 Room Air 06/03/17 07:23 36.3 65 16 174/80 (111) 98 Room Air 06/03/17 04:07 Room Air 06/03/17 02:50 36.5 63 18 144/68 (93) 98 Room Air 06/03/17 00:00 Room Air 06/02/17 23:05 36.5 66 18 153/79 (103) 96 Room Air 06/02/17 20:00 Room Air 06/02/17 19:37 36.4 74 20 180/69 (106) 98 Room Air 74 180/80 (113) 84 166/82 (110) 06/02/17 16:32 167/67 (100) 06/02/17 16:00 Room Air Physical Exam Comments: General Appearance: WD/WN, no apparent distress Neck: supple, no adenopathy Respiratory/Chest: chest non-tender, lungs clear, normal breath sounds Cardiovascular: regular rate, rhythm, + pertinent finding (pedal edema) Abdomen: normal bowel sounds, soft, + tenderness (deep palpation on RUQ) Extremities: normal range of motion Neurologic/Psychiatric: alert Skin: normal color Lymphatic: no adenopathy Laboratory Results Last 24 Hours Test 06/03/17 07:07 White Blood Count 3.97 K/uL Red Blood Count 3.38 M/uL Hemoglobin 10.5 g/dL Hematocrit 28.6 % Mean Corpuscular Volume 84.6 fL Mean Corpuscular Hemoglobin 31.1 pg Mean Corpuscular Hemoglobin Concent 36.7 g/dl RDW Standard Deviation 38.4 fL RDW Coefficient of Variation 12.4 % Platelet Count 210 K/uL Mean Platelet Volume 10.0 fL Sodium Level 129 mmol/L Potassium Level 3.6 mmol/L Chloride Level 99 mmol/L Carbon Dioxide Level 24 mmol/L Anion Gap 6.0 mmol/L Blood Urea Nitrogen 5 mg/dl Creatinine 0.68 mg/dl Est Creatinine Clear Calc Drug Dose 87.5 ml/min Estimated GFR () 104.5 Estimated GFR (Non- 90.2 BUN/Creatinine Ratio 6.8 Random Glucose 85 mg/dl Calcium Level 8.5 mg/dl Assessment and Plan WEIGHT LOSS SECONDARY TO DECREASE PO INTAKE in a 81 yo male with intermittent RUQ pain for past 3 months Weight loss secondary to poor intake Mr. Siddiqui is an 81 y/o male with PMHx of BPH, HLD, HTN, Diverticulosis, Chronic Constipation, and Chronic Abdominal Pain who presents to the ED c/o SOB , Generalized Weakness, and Near-Syncope. He was found to be hypertensive with hyponatremia. Patient is admitted. Lack of energy and weight loss likely attributed to poor PO intake Will consult with general surgery for possible elective cholecystectomy as patient has had studies in the past. Patient had a recent hepatobiliary scan () which showed the following 1. No evidence of acute cholecystitis. 2. Mildly diminished gallbladder ejection fraction of 19%. Apprec. GI input. Had negative Upper GI as outpatient. May consider a trial of cymbalta for pain. GI recommends doing a U/S once his electrolytes improve. Patient is currently tolerating PO CLEAR LIQUID DIET. Hyponatremia: Sodium has improved. will monitor. Still remains low. - Patient appears euvolemic on examination - no JVD, no peripheral edema, oral mucosa wet - Per records he has been hyponatremia approx. one month that we can confirm will continue current sodium IV rate at 75 ml/hr - Continue to trend BMP in AM. - Obtain neuro checks to monitor for any changes in mentation with risk of osmotic demyelination syndrome if Na corrects too quickly Chronic Abdominal Pain: - Has had multiple studies with no direct cause identified - does have chronic constipation - is due to see Dr. Godinez on 06/12 to consider cholecystectomy - would like to see in-hospital if possible and could consider consultation CT-scan was negative. - Protonix 40 mg BID - started due to suspicion of peptic ulcer disease -- will continue - Miralax daily HTN: - BP continues to be elevated, but improved. - Hydralazine PRN -added amlodipine on Sunday. will monitor DVT Prophylaxis: Heparin 5000 units SC BID Code Status: FULL RESUSCITATION Continued [facility] stay due to: home environment unsafe for pt Discharge planning: uncertain
--- NOTE | 2017-06-03 17:09 | DIAGNOSTIC IMAGING REPORT ---
ABDOMINAL ULTRASOUND, RIGHT UPPER QUADRANT HISTORY: Abnormal HIDA. COMPARISON: CT of the abdomen and pelvis June 01, 2017 and hepatobiliary scan May 24, 2017. FINDINGS: Liver is sonographically normal. There is no biliary ductal dilatation. The common bile duct measures 4 mm in caliber. There is no gallbladder wall thickening. No gallstones are identified. There may be a small amount of sludge within the gallbladder. However, artifact is favored. Gallbladder is mildly distended. The pancreas is obscured by overlying bowel gas. There is no right hydronephrosis. IMPRESSION: 1. No gallstones or biliary ductal dilatation. 2. Mild gallbladder distention. No gallbladder wall thickening. No evidence for acute cholecystitis. Internal echoes within the gallbladder likely reflect artifact however sludge could appear similar. Electronically signed by: Donald Morse M.D. 06/03/2017 5:08 PM Dictated Date/Time: 06/03/2017 5:06 PM
--- NOTE | 2017-06-03 17:48 | GASTROINTESTINAL CONSULTATION ---
DATE OF CONSULTATION: 06/03/2017 REASON FOR EVALUATION: Abnormal biliary scan. HISTORY OF PRESENT ILLNESS: The patient is an 81-year-old who has been experiencing intermittent abdominal pain after eating for the past month. He has been to the Emergency Room twice evaluated for these symptoms sometimes associated with shortness of breath. Few days ago he had an EGD by Dr. Thao which was reportedly negative. He presented back to the Emergency Room with shortness of breath and weakness and was found to have a sodium of 122. His liver profile, amylase and lipase were normal and his hemoglobin was slightly low at 11.4. The patient has been admitted and is getting his electrolytes and fluid status remedied. He did undergo a biliary scan with an ejection fraction which showed a low ejection fraction at 19%. CT scan of the abdomen did not reveal any other major structural abnormalities of the liver, pancreas or biliary tree. GI consultation has been requested. PAST MEDICAL HISTORY: Remarkable for benign prostatic v hypertrophy, diverticulosis, hypertension, hyperlipidemia. He has had bilateral mastoidectomy. He has had right inguinal hernia repair, tonsillectomy, adenoidectomy. MEDICATIONS: Pantoprazole, tamsulosin and Zofran p.r.n. ALLERGIES: ATORVASTATIN. FAMILY HISTORY: Positive for heart disease, hypertension. SOCIAL HISTORY: The patient is . He is retired, does not smoke. REVIEW OF SYSTEMS: Positive for some weakness. Remainder is negative. PHYSICAL EXAMINATION: GENERAL: The patient appears awake, alert, in no acute distress. VITAL SIGNS: Blood pressure is 160/80, pulse 70. LUNGS: Clear. HEART: Showed normal S1 and S2, regular rate and rhythm. ABDOMEN: Shows no masses or tenderness, or hepatosplenomegaly. IMPRESSION: The patient has abnormal electrolytes, which could be contributing somewhat to his symptoms, although I suspect that he may have underlying gallbladder disease as he has been having abdominal pains intermittently over the last month and has an abnormal biliary scan. At this point, I would recommend correcting his fluid, electrolytes back to normal and scheduling an ultrasound of the gallbladder to see if there are any signs of gallbladder wall thickening, pericholecystic fluid or stones that would support evidence of gallbladder disease. If he continues to be symptomatic despite correcting his electrolytes, he may indeed need to have a cholecystectomy. Will continue to follow the patient during his hospital stay.
[2017-06-03 19:53] VITALS: BP 163/72; PULSE 64; TEMP 36.4; O2SAT 98
[2017-06-03] MEDS: DULOXETINE HCL 60 MG CAP PO SCH (21:10)
[2017-06-03] MEDS: AMLODIPINE BESYLATE 5 MG TAB PO SCH (21:10)
[2017-06-03 23:08] VITALS: BP 154/65; PULSE 61; TEMP 36.6; O2SAT 98
[2017-06-04] VITALS (8 sets, daily range): BP systolic 121–181; BP diastolic 55–78; PULSE 61–70; TEMP 36.3–36.4; O2SAT 96–99; Ht 182.9 cm; Wt 71.0 kg
[2017-06-04 05:53] LABS: HEMATOCRIT 28.4 % (42-52); HEMOGLOBIN 10.3 g/dL (14.0-18.0); MEAN CORPUSCULAR HEMOGLOBIN 30.8 pg (25-34); MEAN CORPUSCULAR HGB CONC 36.3 g/dl (32-36); MEAN PLATELET VOLUME 9.8 fL (7.4-10.4); PLATELET COUNT 208 K/uL (130-400); RED CELL DISTRIBUTION WIDTH CV 12.3 % (11.5-14.5); RED CELL DISTRIBUTION WIDTH SD 38.4 fL (36.4-46.3); WHITE BLOOD COUNT 4.72 K/uL (4.8-10.8)
[2017-06-04 06:33] LABS: CALCIUM 8.2 mg/dl (8.5-10.1); CREATININE 0.64 mg/dl (0.60-1.40); POTASSIUM 3.5 mmol/L (3.5-5.1)
--- NOTE | 2017-06-04 07:12 | Surgery Progress Note ---
Surgery Progress Note Date of Service Jun 04, 2017. Subjective Post OP Day: HD #3 + bowel movement, + flatus, + pain controlled, + nausea (Mild this AM), + diet ( Tolerating low fat diet), No vomiting Patient feels weak this morning. Reports his symptoms have improved and his pain is almost gone however he still feels slightly nauseated. He is still scheduled to see Dr. nieves in the general surgery clinic on 06/09/17. RUQ U/S revealed Mild gallbladder distention, however no gallstones, biliary duct dilatation, wall thickening or evidence of acute cholecystitis. Patient expressed his concern/fear about having another attack if he were to be discharged and F/U as outpatient. Objective Vital Signs: Date Time Temp Pulse Resp B/P (MAP) Pulse Ox O2 Delivery O2 Flow Rate FiO2 06/04/17 04:00 Room Air 06/04/17 03:59 36.4 62 18 162/78 (106) 96 Room Air 06/04/17 00:00 Room Air 06/03/17 23:08 36.6 61 18 154/65 (94) 98 Room Air 06/03/17 20:00 Room Air 06/03/17 19:53 36.4 64 18 163/72 (102) 98 Room Air 06/03/17 16:00 Room Air 06/03/17 14:59 36.4 61 18 159/83 (108) 98 Room Air 06/03/17 12:00 Room Air 06/03/17 11:15 36.5 58 18 164/71 (102) 99 Room Air 06/03/17 07:45 Room Air 06/03/17 07:23 36.3 65 16 174/80 (111) 98 Room Air General Appearance: WD/WN, no apparent distress Head: normocephalic, atraumatic Neck: trachea midline Respiratory/Chest: no respiratory distress, no accessory muscle use Abdomen: non distended, soft, no organomegaly, + tenderness (Mild ) Laboratory Results: Results Past 24 Hours Test 06/03/17 07:07 06/04/17 05:26 Range/Units White Blood Count 3.97 4.72 4.8-10.8 K/uL Red Blood Count 3.38 3.34 4.7-6.1 M/uL Hemoglobin 10.5 10.3 14.0-18.0 g/dL Hematocrit 28.6 28.4 42-52 % Mean Corpuscular Volume 84.6 85.0 80-100 fL Mean Corpuscular Hemoglobin 31.1 30.8 25-34 pg Mean Corpuscular Hemoglobin Concent 36.7 36.3 32-36 g/dl RDW Standard Deviation 38.4 38.4 36.4-46.3 fL RDW Coefficient of Variation 12.4 12.3 11.5-14.5 % Platelet Count 210 208 130-400 K/uL Mean Platelet Volume 10.0 9.8 7.4-10.4 fL Sodium Level 129 127 136-145 mmol/L Potassium Level 3.6 3.5 3.5-5.1 mmol/L Chloride Level 99 95 98-107 mmol/L Carbon Dioxide Level 24 24 21-32 mmol/L Anion Gap 6.0 8.0 3-11 mmol/L Blood Urea Nitrogen 5 6 7-18 mg/dl Creatinine 0.68 0.64 0.60-1.40 mg/dl Est Creatinine Clear Calc Drug Dose 87.5 95.2 ml/min Estimated GFR () 104.5 107.2 Estimated GFR (Non- 90.2 92.5 BUN/Creatinine Ratio 6.8 9.0 10-20 Random Glucose 85 89 70-99 mg/dl Calcium Level 8.5 8.2 8.5-10.1 mg/dl Diagnostic Interpretation: ABDOMINAL ULTRASOUND, RIGHT UPPER QUADRANT HISTORY: Abnormal HIDA. COMPARISON: CT of the abdomen and pelvis June 01, 2017 and hepatobiliary scan May 24, 2017. FINDINGS: Liver is sonographically normal. There is no biliary ductal dilatation. The common bile duct measures 4 mm in caliber. There is no gallbladder wall thickening. No gallstones are identified. There may be a small amount of sludge within the gallbladder. However, artifact is favored. Gallbladder is mildly distended. The pancreas is obscured by overlying bowel gas. There is no right hydronephrosis. IMPRESSION: 1. No gallstones or biliary ductal dilatation. 2. Mild gallbladder distention. No gallbladder wall thickening. No evidence for acute cholecystitis. Internal echoes within the gallbladder likely reflect artifact however sludge could appear similar. Electronically signed by: Donald Morse M.D. 06/03/2017 5:08 PM Dictated Date/Time: 06/03/2017 5:06 PM Assessment & Plan 81 y/o male w/ weakness, lightheadedness, hyponatremia and hypertension w/ EF: 19% on HIDA and Mild gallbladder distention on RUQ U/S Feeling better but still weak, pain controlled, still slightly nauseated, No Vomiting overnight. +BM, +Flatus No improvement with electrolytes on Am labs. No acute surgical intervention warranted at this time. In agreement with GI If symptoms improve with electrolyte correction and medical optimization patient would be alright to F/U with Dr. Turk or Herbert as an outpatient as planned. Regardless, patient would need preoperative risk assessment prior to surgical intervention. Continue medical management Will discuss findings with Dr. Turk Please contact with questions or concerns. Patient seen and examined, agree with above. Patient admitted with weakness and hyponatremia, 1+ month of intermittent diffuse abdominal pain. HIDA with GBEF 19% but no reproduction of symptoms during exam, symptoms don't sound biliary in nature. No acute indication for cholecystectomy at this time. Patient should be medically optimized and needs pre op risk assessment prior to any surgery. Would appreciate GI input prior to doing cholecystectomy. In either case this can be done on an elective basis. We discussed that with biliary dyskinesia patients that do not have reproduction of symptoms during CCK injection on HIDA have about a 60-70% chance of improvement of symptoms after cholecystectomy. Sully Turk, DO
[2017-06-04] MEDS: PANTOprazole SOD 40 MG TAB PO SCH ×2 (08:12→20:35)
[2017-06-04] MEDS: POLYETHYLENE (MIRALAX) 17 GM PACK PO SCH (08:12)
--- NOTE | 2017-06-04 08:20 | Hospitalist Progress Note ---
Hospitalist Progress Note Date of Service Jun 04, 2017. Subjective Pt evaluation today including: conversation w/ patient, physical exam, chart review, lab review, review of studies, review of inpatient medication list Patient seen and evaluated. No acute events overnight. Telemetry reviewed and remaining NSR with occ. sinus sari. Looks much better compared to admission. Reporting weakness is improving but states he needs to force himself to eat but denies abdominal pain. He reports fear for recurrent abdominal pain as he lives alone. He would like to have cholecystectomy in hospital if possible. He denies exertional CP/angina. Has never required cardiac intervention in the past. Reports chronic intermittent SOB and PT reports desat to 78% with ambulation Constitutional: No fever, No chills Respiratory: + shortness of breath (intermittent) Cardiovascular: No chest pain Abdomen: No pain Male : No dysuria Heme: No abnormal bleeding/bruising Medications Current Inpatient Medications Medications (Trade) Dose Ordered Sig/Patti Route Start Time Stop Time Status Last Admin Dose Admin Acetaminophen (Tylenol Tab) 650 mg Q4H PRN PO 06/01/17 14:45 07/01/17 14:44 Al Hydrox/Mg Hydrox/Simethicone (Maalox Max Susp) 15 ml Q4H PRN PO 06/01/17 14:45 07/01/17 14:44 Magnesium Hydroxide (Milk Of Magnesia Susp) 30 ml Q12H PRN PO 06/01/17 14:45 07/01/17 14:44 Ondansetron HCl (Zofran Inj) 4 mg Q6H PRN IV 06/01/17 14:45 07/01/17 14:44 06/01/17 16:44 4 MG Pantoprazole Sodium (Protonix Tab) 40 mg BID PO 06/01/17 21:00 07/01/17 20:59 06/04/17 08:12 40 MG Ioversol (Optiray 320) 111 ml UD PRN IV 06/01/17 15:00 06/05/17 14:59 Polyethylene (Miralax Powder Packet) 17 gm DAILY PO 06/02/17 09:00 07/01/17 14:44 06/04/17 08:12 17 GM Hydralazine HCl (HydrALAZINE INJ) 5 mg Q6 PRN IV. 06/01/17 15:15 07/01/17 15:14 06/02/17 16:10 5 MG Morphine Sulfate (MoRPHine SULFATE INJ) 1 mg Q4H PRN IV 06/01/17 15:30 06/15/17 15:29 Amlodipine Besylate (Norvasc Tab) 5 mg QPM PO 06/02/17 21:00 07/02/17 20:59 06/03/17 21:10 5 MG Duloxetine HCl (Cymbalta Cap) 60 mg QPM PO 06/03/17 21:00 07/03/17 20:59 06/03/17 21:10 60 MG Sodium Chloride (Sodium Chloride Tab) 1 gm BID PO 06/04/17 21:00 07/04/17 20:59 Enteral Nutritional Formula (Boost) 1 can BIDM PO 06/04/17 17:00 07/04/17 16:59 Objective Vital Signs Date Time Temp Pulse Resp B/P (MAP) Pulse Ox O2 Delivery O2 Flow Rate FiO2 06/04/17 07:16 36.3 64 18 171/77 (108) 97 Room Air 06/04/17 04:00 Room Air 06/04/17 03:59 36.4 62 18 162/78 (106) 96 Room Air 06/04/17 00:00 Room Air 06/03/17 23:08 36.6 61 18 154/65 (94) 98 Room Air 06/03/17 20:00 Room Air 06/03/17 19:53 36.4 64 18 163/72 (102) 98 Room Air 06/03/17 16:00 Room Air 06/03/17 14:59 36.4 61 18 159/83 (108) 98 Room Air 06/03/17 12:00 Room Air 06/03/17 11:15 36.5 58 18 164/71 (102) 99 Room Air Physical Exam General Appearance: no apparent distress, + thin Eyes: sclerae normal ENT: hearing grossly normal Neck: supple, no JVD, trachea midline Respiratory/Chest: lungs clear, normal breath sounds, no respiratory distress, no accessory muscle use Cardiovascular: regular rate, rhythm Abdomen: normal bowel sounds, non tender, soft Extremities: no pedal edema, no calf tenderness Neurologic/Psychiatric: alert, oriented x 3 Skin: normal color, warm/dry Laboratory Results Last 24 Hours Test 06/04/17 05:26 White Blood Count 4.72 K/uL Red Blood Count 3.34 M/uL Hemoglobin 10.3 g/dL Hematocrit 28.4 % Mean Corpuscular Volume 85.0 fL Mean Corpuscular Hemoglobin 30.8 pg Mean Corpuscular Hemoglobin Concent 36.3 g/dl Platelet Count 208 K/uL Mean Platelet Volume 9.8 fL RDW Standard Deviation 38.4 fL RDW Coefficient of Variation 12.3 % Neutrophils % (Manual) 41.0 % Band Neutrophils % (Manual) 0.0 % Lymphocytes % (Manual) 21.0 % Variant Lymphocytes % (manual) 30.0 % Eosinophils % (Manual) 8.0 % Neutrophils # (Manual) 1.94 K/uL Total Absolute Neutrophils 1.94 K/uL Lymphocytes # (Manual) 0.99 K/uL Absolute Variant Lymphocytes 1.42 K/uL Total Absolute Lymphocytes 2.41 K/uL Eosinophils # (Manual) 0.38 K/uL Percent Large Granular Lymphocytes 0.0 % Red Blood Cell Morphology Unremarkable Sodium Level 127 mmol/L Potassium Level 3.5 mmol/L Chloride Level 95 mmol/L Carbon Dioxide Level 24 mmol/L Anion Gap 8.0 mmol/L Blood Urea Nitrogen 6 mg/dl Creatinine 0.64 mg/dl Est Creatinine Clear Calc Drug Dose 95.2 ml/min Estimated GFR () 107.2 Estimated GFR (Non- 92.5 BUN/Creatinine Ratio 9.0 Random Glucose 89 mg/dl Calcium Level 8.2 mg/dl Assessment and Plan Mr. Siddiqui is an 81 y/o male with PMHx of BPH, HLD, HTN, Diverticulosis, Chronic Constipation, and Chronic Abdominal Pain who presents to the ED c/o SOB , Generalized Weakness, and Near-Syncope. He was found to be hypertensive with hyponatremia. Symptomatic Hyponatremia: Suspect Poor Oral Intake - Na is improving but wax and wanes - however is no longer symptomatic - is still somewhat weak but likely this is multifactorial given poor oral intake - looks much improved compared to admission - Will D/C fluids and implement sodium tabs BID - Continue to trend daily BMP Weight Loss 2/2 Poor Oral Intake: - Boost BID Chronic Abdominal Pain: Wax and Wanes - Abdomen is soft and nontender - concerned for constipation - could increase Miralax to BID dosing - Gen Surg and GI following - appreciate recommendations - consideration for cholecystectomy -- Patient is nervous about further worsening abdominal pains and is hoping for cholecystectomy but does have consult with Dr. Godinez as outpatient shortly Pre-Operative Clearance: - Patient denies cardiac history - EKG reveals 1st degree AV block - he states he has not required stress testing or catheterization in the past; There is no echocardiogram on file and this can help fully optimize patient -- Patient is functionally independent and reports no exertional chest pain but has intermittent SOB - Will obtain echo as patient without any on file - patient is not currently experiencing any ischemic issues - Per PT notes he did desat to 78% with ambulation but quickly recovered to high 90s with rest - has remained in mid-high 90s at rest - Na is improving and will implement Na tablets as his issues appears to be from poor oral intake - Na is acceptable to proceed with surgical intervention - No signs of illness/infection - If decision for in-house mitra could obtain echo for further cardiac function evaluation vs await consultation with Dr. Godinez as outpatient HTN: - Norvasc 5 mg BID DVT Prophylaxis: SCDs Code Status: FULL RESUSCITATION Disposition: - Will need two step prior to D/C - Patient lives alone with support from sons - will await further improvement on Na and likely D/C tomorrow or next day with outpatient Gen Surg consulation and can conduct further risk stratification if necessary Continued [facility] stay due to: other (Na) Discharge planning: home
[2017-06-04] MEDS ORDERED: SODIUM CHLORIDE 1 GM TAB PO ONE (11:00)
[2017-06-04] MEDS: BOOST VANILLA PO SCH (17:21)
[2017-06-04] MEDS ORDERED: LAVAGE SOLUTION 4000ML PO SCH (19:00)
--- NOTE | 2017-06-04 19:24 | GASTROENTEROLOGY PROGRESS NOTE ---
DATE: 06/04/2017 GASTROENTEROLOGY INPATIENT PROGRESS NOTE Chart reviewed, patient examined. The patient admitted for ongoing abdominal pain, weight loss, poor appetite. The patient had undergone an upper endoscopy at the end of last week on and this revealed essentially a normal study biopsy of the stomach and duodenum, normal without evidence of H. pylori. He had a HIDA scan with [facility] in late April of 2017 with outpatient surgical plan with Dr. Godinez. His ejection fraction was 19%. Since Sunday, patient continues to have intermittent abdominal discomfort, poor appetite, a sense of taste changes of unclear origin. He did have an abdominal ultrasound on June 03, and this revealed no evidence of gallstones or biliary ductal dilation. There is no gallbladder wall thickening, no evidence for acute cholecystitis. It is possible that some echogenic features may represent sludge in the gallbladder. The patient also had a CT on June 01, and this revealed no acute intraabdominal or pelvic findings, no evidence of bowel obstruction or free air. 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 The patient believes his last colonoscopy was perhaps 4 or 5 years ago. The patient's laboratory study shows a normocytic anemia of 10.3 today, his admission lab was 11.4. The patient has been seen by surgery and according to patient it is unclear if this surgery will be performed during this hospitalization. CURRENT MEDICATIONS: Boost, Cymbalta, Norvasc, Protonix, hydralazine, Zofran. REVIEW OF SYSTEMS: Otherwise noncontributory based on 13-point exam except for mentioned above. The patient does not report diarrhea and actually has constipation at times. The patient reports an approximate 20-pound weight loss over the past year or so. PHYSICAL EXAMINATION: VITAL SIGNS: Today, afebrile 36.3, blood pressure 140/55, respirations 18, heart rate 69, 98% on room air. GENERAL: The patient is awake, alert and oriented x3. HEENT: Sclerae anicteric. Conjunctivae moist. Oral mucosa moist. HEART: Normal S1, S2. LUNGS: Clear to auscultation. ABDOMEN: Soft, flat, nontender, nondistended with good bowel sounds. EXTREMITIES: Without clubbing, cyanosis or edema. Normal range of motion in all extremities. RECTAL: Deferred. NEUROLOGIC: There are no focal neurologic defects. IMPRESSION AND PLAN: The source of patient's upper abdominal discomfort, weight loss, anemia are unclear at this time. The only notable finding is a HIDA scan that is 19% as an outpatient. Ultrasound does not show any specific changes and CT scan was unremarkable for abdominal or pelvic pathology. Given patient's anemia and weight loss, a colonoscopy reasonable and we will make arrangements for this tomorrow; however, I am not sure if this answers his anorexia. If a CT of the head has not been performed recently, this should be considered. Also, it is possible that some of his medications may be leading to an anorexia component; and review and change or elimination may be of benefit. We will plan for a colonoscopy tomorrow with Dr. Conley in the afternoon. The pancreatic lesions are small and will see if prior imaging at [facility] or elsewhere is available for comparison. EUS is a possibility All questions answered. VISHAL
[2017-06-04] MEDS: DULOXETINE HCL 60 MG CAP PO SCH (20:34)
[2017-06-04] MEDS: AMLODIPINE BESYLATE 5 MG TAB PO SCH (20:35)
[2017-06-04] MEDS: SODIUM CHLORIDE 1 GM TAB PO SCH (20:35)
[2017-06-05 04:29] VITALS: BP 160/66; PULSE 61; TEMP 36.3; O2SAT 97
[2017-06-05 07:04] LABS: HEMOGLOBIN 10.9 g/dL (14.0-18.0); MEAN CELL VOLUME 83.6 fL (80-100); MEAN CORPUSCULAR HEMOGLOBIN 31.4 pg (25-34); MEAN CORPUSCULAR HGB CONC 37.6 g/dl (32-36); PLATELET COUNT 217 K/uL (130-400); RED CELL DISTRIBUTION WIDTH CV 12.2 % (11.5-14.5); RED CELL DISTRIBUTION WIDTH SD 37.3 fL (36.4-46.3); WHITE BLOOD COUNT 5.99 K/uL (4.8-10.8)
[2017-06-05] MEDS: SODIUM CHLORIDE 1 GM TAB PO SCH ×2 (07:28→21:02)
[2017-06-05] MEDS: PANTOprazole SOD 40 MG TAB PO SCH ×2 (07:28→21:02)
[2017-06-05 07:34] LABS: CALCIUM 8.7 mg/dl (8.5-10.1); CREATININE 0.52 mg/dl (0.60-1.40); POTASSIUM 3.8 mmol/L (3.5-5.1)
[2017-06-05] MEDS: BOOST VANILLA PO SCH ×2 (07:39→18:00)
[2017-06-05] MEDS: POLYETHYLENE (MIRALAX) 17 GM PACK PO SCH (07:39)
[2017-06-05 07:53] VITALS: BP_SYST 146; BP_SYST 153; BP_SYST 168; BP_DIAS 68; BP_DIAS 76; PULSE 60; TEMP 36.5; O2SAT 95
--- NOTE | 2017-06-05 10:27 | Hospitalist Progress Note ---
Hospitalist Progress Note Date of Service Jun 05, 2017. Subjective Pt evaluation today including: conversation w/ patient, conversation w/ family , physical exam, chart review, lab review, review of studies, review of inpatient medication list Patient seen and evaluated. Telemetry reviewed with NSR and sinus sari. Completed bowel prep for colonoscopy today. Na levels dropped this AM however does not appear symptomatic of this. He was started on Na tablets yesterday but reports he threw up after he took his night pills so likely did not get an adequate absorption of last evenings dose. Has had multiple BMs reporting mostly liquid stool but still some formed stool. Had a long conversation with patient and family about his abdominal pain and explaining imaging studies. He reports that he has been tolerating a liquid and light diet but is concerned for a regular diet causing his abdominal pain. Reports that he was able to tolerate Boost and would benefit on D/C with this supplement. Constitutional: No fever, No chills Respiratory: No shortness of breath Cardiovascular: No chest pain Abdomen: + vomiting (last evening - resolved), No pain, No nausea, No GI bleeding Musculoskeletal: No swelling, No calf pain Medications Current Inpatient Medications Medications (Trade) Dose Ordered Sig/Patti Route Start Time Stop Time Status Last Admin Dose Admin Acetaminophen (Tylenol Tab) 650 mg Q4H PRN PO 06/01/17 14:45 07/01/17 14:44 Al Hydrox/Mg Hydrox/Simethicone (Maalox Max Susp) 15 ml Q4H PRN PO 06/01/17 14:45 07/01/17 14:44 06/04/17 17:24 15 ML Magnesium Hydroxide (Milk Of Magnesia Susp) 30 ml Q12H PRN PO 06/01/17 14:45 07/01/17 14:44 Ondansetron HCl (Zofran Inj) 4 mg Q6H PRN IV 06/01/17 14:45 07/01/17 14:44 06/01/17 16:44 4 MG Pantoprazole Sodium (Protonix Tab) 40 mg BID PO 06/01/17 21:00 07/01/17 20:59 06/05/17 07:28 40 MG Ioversol (Optiray 320) 111 ml UD PRN IV 06/01/17 15:00 06/05/17 14:59 Polyethylene (Miralax Powder Packet) 17 gm DAILY PO 06/02/17 09:00 07/01/17 14:44 06/04/17 08:12 17 GM Hydralazine HCl (HydrALAZINE INJ) 5 mg Q6 PRN IV. 06/01/17 15:15 07/01/17 15:14 06/02/17 16:10 5 MG Morphine Sulfate (MoRPHine SULFATE INJ) 1 mg Q4H PRN IV 06/01/17 15:30 06/15/17 15:29 Amlodipine Besylate (Norvasc Tab) 5 mg QPM PO 06/02/17 21:00 07/02/17 20:59 06/04/17 20:35 5 MG Duloxetine HCl (Cymbalta Cap) 60 mg QPM PO 06/03/17 21:00 07/03/17 20:59 06/04/17 20:34 60 MG Sodium Chloride (Sodium Chloride Tab) 1 gm BID PO 06/04/17 21:00 07/04/17 20:59 06/05/17 07:28 1 GM Enteral Nutritional Formula (Boost) 1 can BIDM PO 06/04/17 17:00 07/04/17 16:59 06/04/17 17:21 1 CAN Objective Vital Signs Date Time Temp Pulse Resp B/P (MAP) Pulse Ox O2 Delivery O2 Flow Rate FiO2 06/05/17 07:53 36.5 60 18 153/68 (96) 95 Room Air 168/76 (106) 146/68 (94) 06/05/17 07:20 Room Air 06/05/17 04:29 36.3 61 22 160/66 (97) 97 Room Air 06/05/17 04:00 Room Air 06/05/17 00:00 Room Air 06/04/17 23:55 36.3 64 20 170/69 (102) 98 Room Air 61 181/72 (108) 65 162/66 (98) 06/04/17 20:20 98 Room Air 06/04/17 19:23 36.4 64 18 143/61 (88) 97 Room Air 06/04/17 16:55 98 Room Air 06/04/17 15:45 36.3 64 18 140/55 (83) 98 Room Air 65 136/69 (91) 69 121/66 (84) 06/04/17 12:20 Room Air 06/04/17 11:05 36.3 62 18 153/75 (101) 99 Room Air 70 133/62 (85) 70 124/66 (85) Physical Exam General Appearance: no apparent distress, + thin Neck: supple, no JVD, trachea midline Respiratory/Chest: lungs clear, normal breath sounds, no respiratory distress, no accessory muscle use Cardiovascular: regular rate, rhythm, no gallop, no murmur Abdomen: normal bowel sounds, non tender, soft Extremities: no pedal edema Neurologic/Psychiatric: alert, oriented x 3 Skin: normal color, warm/dry Laboratory Results Last 24 Hours Test 06/05/17 06:10 White Blood Count 5.99 K/uL Red Blood Count 3.47 M/uL Hemoglobin 10.9 g/dL Hematocrit 29.0 % Mean Corpuscular Volume 83.6 fL Mean Corpuscular Hemoglobin 31.4 pg Mean Corpuscular Hemoglobin Concent 37.6 g/dl RDW Standard Deviation 37.3 fL RDW Coefficient of Variation 12.2 % Platelet Count 217 K/uL Mean Platelet Volume 10.0 fL Sodium Level 123 mmol/L Potassium Level 3.8 mmol/L Chloride Level 91 mmol/L Carbon Dioxide Level 26 mmol/L Anion Gap 6.0 mmol/L Blood Urea Nitrogen 7 mg/dl Creatinine 0.52 mg/dl Est Creatinine Clear Calc Drug Dose 117.9 ml/min Estimated GFR () 116.7 Estimated GFR (Non- 100.7 BUN/Creatinine Ratio 12.8 Random Glucose 100 mg/dl Calcium Level 8.7 mg/dl Assessment and Plan Mr. Siddiqui is an 81 y/o male with PMHx of BPH, HLD, HTN, Diverticulosis, Chronic Constipation, and Chronic Abdominal Pain who presents to the ED c/o SOB , Generalized Weakness, and Near-Syncope. He was found to be hypertensive with hyponatremia. Symptomatic Hyponatremia: Suspect Poor Oral Intake - Na wax and wanes - however is no longer symptomatic - is still somewhat weak but likely this is multifactorial given poor oral intake - Will continue Na tablets - last evening he reports emesis after taking his medication - will repeat BMP this afternoon - Finding support more of a poor solute intake picture but could still be a possible SIADH? Possible need for Head CT - largely hypertensive but does have some orthostasis and consideration for an adrenal insufficiency? Was started on Cymbalta this admission which even though an SNRI there is reported instances of hyponatremia/SIADH? - Continue to trend daily BMP Weight Loss 2/2 Poor Oral Intake: - Boost BID Chronic Abdominal Pain: Wax and Wanes - Gen Surg and GI following - appreciate recommendations - plan for colonoscopy today HTN: - Norvasc 5 mg BID DVT Prophylaxis: SCDs Code Status: FULL RESUSCITATION Disposition: - Will need two step prior to D/C - Patient lives alone with support from sons - will await colonoscopy and Na correction Continued [facility] stay due to: multiple IV medications needed Discharge planning: home
--- NOTE | 2017-06-05 12:53 | Surgery Progress Note ---
Surgery Progress Note Date of Service Jun 05, 2017. Subjective + bowel movement (tolerated colon prep for c-scope today) Objective Vital Signs: Date Time Temp Pulse Resp B/P (MAP) Pulse Ox O2 Delivery O2 Flow Rate FiO2 06/05/17 12:30 Room Air 06/05/17 07:53 36.5 60 18 153/68 (96) 95 Room Air 168/76 (106) 146/68 (94) 06/05/17 07:20 Room Air 06/05/17 04:29 36.3 61 22 160/66 (97) 97 Room Air 06/05/17 04:00 Room Air 06/05/17 00:00 Room Air 06/04/17 23:55 36.3 64 20 170/69 (102) 98 Room Air 61 181/72 (108) 65 162/66 (98) 06/04/17 20:20 98 Room Air 06/04/17 19:23 36.4 64 18 143/61 (88) 97 Room Air 06/04/17 16:55 98 Room Air 06/04/17 15:45 36.3 64 18 140/55 (83) 98 Room Air 65 136/69 (91) 69 121/66 (84) Abdomen: non tender, non distended, soft Laboratory Results: Results Past 24 Hours Test 06/05/17 06:10 06/05/17 12:01 Range/Units White Blood Count 5.99 4.8-10.8 K/uL Red Blood Count 3.47 4.7-6.1 M/uL Hemoglobin 10.9 14.0-18.0 g/dL Hematocrit 29.0 42-52 % Mean Corpuscular Volume 83.6 80-100 fL Mean Corpuscular Hemoglobin 31.4 25-34 pg Mean Corpuscular Hemoglobin Concent 37.6 32-36 g/dl RDW Standard Deviation 37.3 36.4-46.3 fL RDW Coefficient of Variation 12.2 11.5-14.5 % Platelet Count 217 130-400 K/uL Mean Platelet Volume 10.0 7.4-10.4 fL Sodium Level 123 136-145 mmol/L Potassium Level 3.8 3.5-5.1 mmol/L Chloride Level 91 98-107 mmol/L Carbon Dioxide Level 26 21-32 mmol/L Anion Gap 6.0 3-11 mmol/L Blood Urea Nitrogen 7 7-18 mg/dl Creatinine 0.52 0.60-1.40 mg/dl Est Creatinine Clear Calc Drug Dose 117.9 ml/min Estimated GFR () 116.7 Estimated GFR (Non- 100.7 BUN/Creatinine Ratio 12.8 10-20 Random Glucose 100 70-99 mg/dl Calcium Level 8.7 8.5-10.1 mg/dl Assessment & Plan hyponatremia Na 123 this AM biliary dyskinesia consider cholecystectomy once sodium corrected/stable, can follow-up as outpatient
[2017-06-05 12:55] LABS: CALCIUM 8.8 mg/dl (8.5-10.1); CREATININE 0.6 mg/dl (0.60-1.40); POTASSIUM 3.6 mmol/L (3.5-5.1)
[2017-06-05] MEDS ORDERED: LIDOCAINE HCL 2% 2 ML VIAL (20MG/ML) ONE (14:24)
[2017-06-05] MEDS ORDERED: PROPOFOL IV EMULSION 10 MG/ML 20 ML VIAL IV ONE (14:24)
--- NOTE | 2017-06-05 14:25 | Endo History and Physical ---
History & Physical Date of Service: Jun 05, 2017. Chief Complaint: abd pain, wt loss Referring Physician: Dr Melendez History of Present Illness For colonoscopy Past Medical History Arthritis, Glaucoma, Reflux, Cancer, High Cholesterol, Hypertension Past Surgical History Hx Cardiac Surgery: No Hx Internal Defibrillator: No Hx Pacemaker: No Hx Abdominal Surgery: Yes (RIGHT INGUINAL HERNIA REPAIR ) Hx Post-Op Nausea and Vomiting: No Hx Cancer Surgery: Yes (LESION REMOVAL BACK ) Social History Smoking Status: Never Smoker Smokeless Tobacco Use: No Hx Substance Use: No Hx Alcohol Use: No Allergies Coded Allergies: Atorvastatin (Unverified Allergy, Intermediate, MUSCLE ACHES, CRAMPING, 06/05/17) Current Medications Reported Home Medications Medications Dose Route/Sig Max Daily Dose Days Date Category Protonix (Pantoprazole) 40 Mg Tab 40 Mg PO BID 06/01/17 Reported Zofran (Ondansetron Hcl) 4 Mg Tab 4 Mg PO Q6H PRN 06/01/17 Reported Tamsulosin HCl 0.4 Mg Cap 0.4 Mg PO DAILY 05/10/17 Reported Vital Signs Weight (Kilograms): 73.600 Height (Feet): 6 Height (Inches): 0.00 Date Time Temp Pulse Resp B/P (MAP) Pulse Ox O2 Delivery O2 Flow Rate FiO2 06/05/17 13:44 36.4 73 18 174/86 (115) 98 Room Air 06/05/17 12:30 Room Air 06/05/17 07:53 36.5 60 18 153/68 (96) 95 Room Air 168/76 (106) 146/68 (94) 06/05/17 07:20 Room Air 06/05/17 04:29 36.3 61 22 160/66 (97) 97 Room Air 06/05/17 04:00 Room Air 06/05/17 00:00 Room Air 06/04/17 23:55 36.3 64 20 170/69 (102) 98 Room Air 61 181/72 (108) 65 162/66 (98) 06/04/17 20:20 98 Room Air 06/04/17 19:23 36.4 64 18 143/61 (88) 97 Room Air 06/04/17 16:55 98 Room Air 06/04/17 15:45 36.3 64 18 140/55 (83) 98 Room Air 65 136/69 (91) 69 121/66 (84) Physical Exam General Appearance: WD/WN Respiratory/Chest: Respiratory effort: no dyspnea Cardiovascular: Heart Auscultation: RRR Abdomen: Inspection & Palpation: soft Assessment and Plan Abd pain, wt loss for Colonoscopy
[2017-06-05] MEDS ORDERED: ATROPINE SULFATE 0.1 MG/ML 5ML SYR IV PRN (14:30)
[2017-06-05] MEDS ORDERED: EpHEDrine SULFATE INJ 50 MG/ML AMP IV PRN (14:30)
--- NOTE | 2017-06-05 14:49 | Discharge Instructions ---
Endoscopy Patient Instructions Date / Procedure(s) Performed Jun 05, 2017. Colonoscopy Allergy Information Coded Allergies: Atorvastatin (Unverified Allergy, Intermediate, MUSCLE ACHES, CRAMPING, 06/05/17) Discharge Date / Findings Jun 05, 2017. Diverticulosis Medication Instructions Restart Stopped Medication(s): resume meds Current Inpatient Medications Medications (Trade) Dose Ordered Sig/Patti Route Start Time Stop Time Status Last Admin Dose Admin Acetaminophen (Tylenol Tab) 650 mg Q4H PRN PO 06/01/17 14:45 07/01/17 14:44 Al Hydrox/Mg Hydrox/Simethicone (Maalox Max Susp) 15 ml Q4H PRN PO 06/01/17 14:45 07/01/17 14:44 06/04/17 17:24 15 ML Magnesium Hydroxide (Milk Of Magnesia Susp) 30 ml Q12H PRN PO 06/01/17 14:45 07/01/17 14:44 Ondansetron HCl (Zofran Inj) 4 mg Q6H PRN IV 06/01/17 14:45 07/01/17 14:44 06/01/17 16:44 4 MG Pantoprazole Sodium (Protonix Tab) 40 mg BID PO 06/01/17 21:00 07/01/17 20:59 06/05/17 07:28 40 MG Ioversol (Optiray 320) 111 ml UD PRN IV 06/01/17 15:00 06/05/17 14:59 Polyethylene (Miralax Powder Packet) 17 gm DAILY PO 06/02/17 09:00 07/01/17 14:44 06/04/17 08:12 17 GM Hydralazine HCl (HydrALAZINE INJ) 5 mg Q6 PRN IV. 06/01/17 15:15 07/01/17 15:14 06/02/17 16:10 5 MG Morphine Sulfate (MoRPHine SULFATE INJ) 1 mg Q4H PRN IV 06/01/17 15:30 06/15/17 15:29 Amlodipine Besylate (Norvasc Tab) 5 mg QPM PO 06/02/17 21:00 07/02/17 20:59 06/04/17 20:35 5 MG Sodium Chloride (Sodium Chloride Tab) 1 gm BID PO 06/04/17 21:00 07/04/17 20:59 06/05/17 07:28 1 GM Enteral Nutritional Formula (Boost) 1 can BIDM PO 06/04/17 17:00 07/04/17 16:59 06/04/17 17:21 1 CAN Ephedrine Sulfate (EpHEDrine SULFATE INJ) 5 mg Q5M PRN IV 06/05/17 14:30 06/06/17 14:29 UNV Atropine Sulfate (Atropine Sulfate 0.1mg/ml Inj) 0.5 mg Q1M PRN IV 06/05/17 14:30 06/06/17 14:29 UNV Provider Instructions Activity Restrictions - No exercising or heavy lifting for 24 hours. - Do not drink alcohol the day of the procedure. - Do not drive a car or operate machinery until the day after the procedure. - Do not make any important decisions or sign important papers in 24 hours after the procedure. Following Day: - Return to full activity which may include returning to work/school. Diet Start your diet with liquids and light foods (jello, soup, juice, toast). Then eat your usual diet if not nauseated. Treatment For Common After Affects For mild abdominal pain, bloating, or excessive gas: - Rest - Eat lightly - Lie on right side Follow-Up Information Follow-up with as scheduled Anesthesia Information What You Should Know You have had a procedure that required some medicine to reduce anxiety and discomfort. This treatment is called moderate sedation. After receiving the treatment, you may be sleepy, but you will be able to breathe on your own. The effects of the treatment may last for several hours. Follow these instructions along with Activity/Diet recommendations noted above: * Do NOT do anything where dizziness or clumsiness would be dangerous. * Rest quietly at home today, then you can be up and about tomorrow. * Have a responsible person stay with you the rest of today. * You may have had an I.V. today. If so, you may take the dressing off later today. Recommendations Call your doctor if: * Trouble breathing * Continuous vomiting for more than 24 hours * Temperature above 101 degrees * Severe abdominal pain or bloating * Pain not relieved by pain medicine ordered * There is increased drainage or redness from any incision * A large amount of rectal bleeding greater than 2-3 tablespoons. (If you had a polyp/s removed or have hemorrhoids, a small amount of blood - from the rectum is to be expected.) * You have any unanswered questions or concerns. IN THE EVENT OF A SERIOUS EMERGENCY, GO TO THE NEAREST EMERGENCY ROOM Your discharge instructions were prepared by provider Michele Conley. Patient Instructions Signature Page John Siddiqui Patient (or Guardian) Signature/Date: I have read and understand the instructions given to me by my caregivers. Caregiver/RN/Doctor Signature/Date: The above-named patient and/or guardian has received patient instructions on this date. + Original Patient Signature Page (only) stays with chart. Please make copy for patient.
--- NOTE | 2017-06-05 14:51 | GI REPORT ---
Procedure Date: 06/05/2017 2:10 PM Procedure: Colonoscopy Indications: Generalized abdominal pain, Weight loss Medicines: Propofol total dose 150 mg IV, Lidocaine 40 mg IV Complications: No immediate complications. Estimated Blood Loss: Estimated blood loss: none. Procedure: Pre-Anesthesia Assessment: - Prior to the procedure, a History and Physical was performed, and patient medications, allergies and sensitivities were reviewed. The patient's tolerance of previous anesthesia was reviewed. - The risks and benefits of the procedure and the sedation options and risks were discussed with the patient. All questions were answered and informed consent was obtained. After I obtained informed consent, the scope was passed under direct vision. Throughout the procedure, the patient's blood pressure, pulse, and oxygen saturations were monitored continuously. The Scope was introduced through the anus and advanced to the terminal ileum. The colonoscopy was performed without difficulty. The patient tolerated the procedure well. The quality of the bowel preparation was good. Findings: A few diverticula were found in the sigmoid colon. The terminal ileum appeared normal. Impression: - Diverticulosis in the sigmoid colon. - The examined portion of the ileum was normal. - No specimens collected. Recommendation: - [facility] for [facility] care. Michele Conley M.D. Michele Conley MD 06/05/2017 2:51:32 PM This report has been signed electronically. Note Initiated On: 06/05/2017 2:10 PM I attest to the content of the Intraoperative Record and orders documented therein, exceptions below
--- NOTE | 2017-06-05 15:13 | Anesthesiology Progress Note ---
Anesthesia Post Op Note Date & Time Jun 05, 2017 at 15:13 Vital Signs Pain Intensity: 0.0 Vital Signs Past 12 Hours Date Time Temp Pulse Resp B/P (MAP) Pulse Ox O2 Delivery O2 Flow Rate FiO2 06/05/17 15:03 66 16 152/65 (94) 97 Room Air 06/05/17 14:48 63 16 123/56 (78) 99 Room Air 06/05/17 13:44 36.4 73 18 174/86 (115) 98 Room Air 06/05/17 12:30 Room Air 06/05/17 07:53 36.5 60 18 153/68 (96) 95 Room Air 168/76 (106) 146/68 (94) 06/05/17 07:20 Room Air 06/05/17 04:29 36.3 61 22 160/66 (97) 97 Room Air 06/05/17 04:00 Room Air Notes Mental Status: alert / awake / arousable, participated in evaluation Pt Amnestic to Procedure: Yes Nausea / Vomiting: adequately controlled Pain: adequately controlled Airway Patency, RR, SpO2: stable & adequate BP & HR: stable & adequate Hydration State: stable & adequate Anesthetic Complications: no major complications apparent
--- NOTE | 2017-06-05 15:40 | GASTROENTEROLOGY PROGRESS NOTE ---
DATE: 06/05/2017 DATE: 06/05/2017 SUBJECTIVE: The patient underwent a colonoscopy today for abdominal pain and weight loss. The exam was carried into the terminal ileum. There were a few sigmoid diverticula, but no other pathologic abnormalities were found. There was no blood in the colon or small intestine. IMPRESSION: The patient has diverticulosis of the colon which is unchanged from his previous colonoscopy. I suspect that his abdominal symptoms may be driving from his gallbladder as evidenced by his abnormal biliary scan.
[2017-06-05 15:47] VITALS: BP 189/76; PULSE 65; TEMP 36.2; O2SAT 98
[2017-06-05 16:12] VITALS: BP 164/71
[2017-06-05 20:12] VITALS: BP 156/78; PULSE 76; TEMP 36.5; O2SAT 97
[2017-06-05] MEDS: AMLODIPINE BESYLATE 5 MG TAB PO SCH (21:02)
[2017-06-05 23:48] VITALS: BP_SYST 115; BP_SYST 136; BP_SYST 143; BP_DIAS 61; BP_DIAS 69; BP_DIAS 77; PULSE 70; TEMP 36.7; O2SAT 97
[2017-06-06] VITALS (7 sets, daily range): BP systolic 130–165; BP diastolic 69–80; PULSE 60–72; TEMP 36.3–36.8; O2SAT 95–99
[2017-06-06] MEDS: POLYETHYLENE (MIRALAX) 17 GM PACK PO SCH (07:58)
[2017-06-06] MEDS: BOOST VANILLA PO SCH ×2 (07:58→17:17)
[2017-06-06] MEDS: PANTOprazole SOD 40 MG TAB PO SCH ×2 (07:59→20:51)
[2017-06-06] MEDS: SODIUM CHLORIDE 1 GM TAB PO SCH ×2 (07:59→20:51)
[2017-06-06 08:56] LABS: HEMATOCRIT 32.3 % (42-52); HEMOGLOBIN 11.6 g/dL (14.0-18.0); MEAN CELL VOLUME 85.2 fL (80-100); MEAN CORPUSCULAR HEMOGLOBIN 30.6 pg (25-34); MEAN CORPUSCULAR HGB CONC 35.9 g/dl (32-36); MEAN PLATELET VOLUME 9.8 fL (7.4-10.4); PLATELET COUNT 249 K/uL (130-400); RED CELL DISTRIBUTION WIDTH CV 12.4 % (11.5-14.5); RED CELL DISTRIBUTION WIDTH SD 38.6 fL (36.4-46.3); WHITE BLOOD COUNT 4.46 K/uL (4.8-10.8)
[2017-06-06 09:23] LABS: CALCIUM 8.8 mg/dl (8.5-10.1); CREATININE 0.76 mg/dl (0.60-1.40); POTASSIUM 3.1 mmol/L (3.5-5.1)
[2017-06-06] MEDS ORDERED: POTASSIUM CHLORIDE 20 MEQ TABCR PO STA (09:36)
--- NOTE | 2017-06-06 13:00 | Surgery Progress Note ---
Surgery Progress Note Date of Service Jun 06, 2017. Subjective 81-year-old male admitted with weakness and hyponatremia. Surgery was counseled for an abnormal HIDA scan as outpatient and history of intermittent abdominal pain over the past month. Yesterday he had an unremarkable colonoscopy that was performed due to recent history of weight loss and anemia. He also had a recent upper endoscopy was also unremarkable. Today he is feeling well, tolerating a regular diet, denies any abdominal pain or discomfort. He states that he is in place on a new pill to help with his stomach, and this makes him feel much better. Objective Vital Signs: Date Time Temp Pulse Resp B/P (MAP) Pulse Ox O2 Delivery O2 Flow Rate FiO2 06/06/17 07:40 Room Air 06/06/17 07:16 36.5 72 18 135/80 (98) 97 Room Air 06/06/17 04:00 Room Air 06/06/17 03:50 36.3 62 18 130/69 (89) 98 Room Air 06/06/17 00:00 Room Air 06/05/17 23:48 36.7 70 16 143/61 (88) 97 Room Air 136/77 (96) 115/69 (84) 06/05/17 20:12 36.5 76 20 156/78 (104) 97 06/05/17 20:00 Room Air 06/05/17 16:12 164/71 (102) 06/05/17 16:00 Room Air 06/05/17 15:47 36.2 65 18 189/76 (113) 98 Room Air 06/05/17 15:18 68 16 159/74 (102) 98 Room Air 06/05/17 15:03 66 16 152/65 (94) 97 Room Air 06/05/17 14:48 63 16 123/56 (78) 99 Room Air 06/05/17 13:44 36.4 73 18 174/86 (115) 98 Room Air General Appearance: WD/WN, no apparent distress Abdomen: normal bowel sounds, non tender, non distended, soft, no organomegaly , no pulsatile mass Laboratory Results: Results Past 24 Hours Test 06/06/17 08:32 Range/Units White Blood Count 4.46 4.8-10.8 K/uL Red Blood Count 3.79 4.7-6.1 M/uL Hemoglobin 11.6 14.0-18.0 g/dL Hematocrit 32.3 42-52 % Mean Corpuscular Volume 85.2 80-100 fL Mean Corpuscular Hemoglobin 30.6 25-34 pg Mean Corpuscular Hemoglobin Concent 35.9 32-36 g/dl RDW Standard Deviation 38.6 36.4-46.3 fL RDW Coefficient of Variation 12.4 11.5-14.5 % Platelet Count 249 130-400 K/uL Mean Platelet Volume 9.8 7.4-10.4 fL Sodium Level 130 136-145 mmol/L Potassium Level 3.1 3.5-5.1 mmol/L Chloride Level 96 98-107 mmol/L Carbon Dioxide Level 28 21-32 mmol/L Anion Gap 7.0 3-11 mmol/L Blood Urea Nitrogen 9 7-18 mg/dl Creatinine 0.76 0.60-1.40 mg/dl Est Creatinine Clear Calc Drug Dose 81.5 ml/min Estimated GFR () 99.9 Estimated GFR (Non- 86.2 BUN/Creatinine Ratio 12.1 10-20 Random Glucose 139 70-99 mg/dl Calcium Level 8.8 8.5-10.1 mg/dl Magnesium Level 1.9 1.8-2.4 mg/dl Assessment & Plan Patient admitted with weakness and hyponatremia, 1+ month of intermittent diffuse abdominal pain. HIDA with GBEF 19% but no reproduction of symptoms during exam, symptoms don't sound biliary in nature. I had a lengthy discussion with the patient that at this point we have no other reason for his intermittent abdominal pain, and it may be his gallbladder causing his symptoms. We discussed that with biliary dyskinesia, patients that do not have reproduction of symptoms during CCK injection on HIDA have about a 60-70% chance of improvement of symptoms after cholecystectomy. We discussed the risks of laparoscopic cholecystectomy to include but are not limited to bleeding , infection, damage to common bile duct or other structures, conversion to open , retained stone, bile leak, need for future or more extensive surgeries, failure to treat pain, and the risks of anesthesia. I gave him the option for cholecystectomy during this hospital stay versus following up as an outpatient to discuss his options further. At this point he would like to follow up as an outpatient and see how he does. I did discuss that he should avoid fatty meals , and preferably keep a food journal to see what may stimulate his symptoms. I also gave him return precautions and educated him on the signs of cholecystitis. Patient does not desire cholecystectomy during this hospital stay Okay to discharge from general surgery perspective He may follow up with me as an outpatient (patient was initially scheduled to see Dr. Godinez) Patient should be medically optimized and needs pre op risk assessment prior to any surgery Return precautions given General surgery will sign off, please contact with questions or concerns
--- NOTE | 2017-06-06 13:10 | Clinical Documentation Query ---
CLINICAL DOCUMENTATION QUERY Dr. PASTRANA, In your clinical opinion is this patient being managed for: ( ) Moderate protein-calorie malnutrition ( ) Not Agree ( ) Other explanation of clinical findings (Please Explain) ( ) Unable to determine (Please Define) ( ) Need to Discuss The medical record reflects the following clinical findings, treatment, and risk factors. Clinical Indicators:81 yo male presenting with hyponatremia and wt loss. Wt loss of 5% in the past month, described as thin, and described as having poor oral intake. Treatment: boost BID, protonix po bid, GI consult, IV fluids Risk Factors:biliary dyskinesia, abd pain Moderate Malnutrition Criteria: (2 criteria needed) Energy intake: <75% of estimated energy requirement for > 7 days Wt loss: 1-2% in 1 wk, 5% in 1 month, or 7.5% in 3 months Body fat: mild loss of SQ fat from the orbits, triceps or fat overlying the ribs Muscle mass: mild muscle wasting at the temples, clavicles, shoulders, interosseous spaces, scapula, thigh, calf Fluid accumulation: mild localized or generalized edema of the extremities, vulva, scrotum-wt loss may be masked by edema Please clarify and document your clinical opinion in the progress notes and discharge summary. Terms such as "probable", "suspected", "likely", "questionable", "possible", or "still to be ruled out" are acceptable. IF IN AGREEMENT, YOU MUST DOCUMENT ABOVE DIAGNOSTIC STATEMENT IN DAILY PROGRESS NOTES AND DISCHARGE SUMMARY. This document is not part of the patient's record. Thank You, Diane Askew, KETURAH [phone]
--- NOTE | 2017-06-06 14:23 | Hospitalist Progress Note ---
Hospitalist Progress Note Date of Service Jun 06, 2017. (Ashley Puga PA-C) Subjective Pt evaluation today including: conversation w/ patient, physical exam, chart review, lab review, review of studies, review of inpatient medication list Patient seen and evaluated. Reporting feeling well today and probably the best he has been during admission. States the stomach pill we have been giving him has helped, however his home BID Protonix has been used here... BP has been doing better since adding Norvasc but is still having orthostatic BPs. He has been ambulating the halls without difficulty. Na is a 130 on Na tablets. Will perform a cosyntropin stim test to further evaluate for adrenal insufficiency given hyponatremia, orthostasis, and abdominal pain He is reporting tolerance of his diet and had discussion on low fat foods. He plans to follow-up with his outpatient appointment for consideration for mitra. Constitutional: No fever, No chills, No weakness Respiratory: No shortness of breath Cardiovascular: No chest pain Abdomen: No pain, No nausea, No vomiting, No diarrhea, No constipation, No GI bleeding Musculoskeletal: No calf pain Male : No dysuria Heme: No abnormal bleeding/bruising (Ashley Puga PA-C) Medications Current Inpatient Medications Medications (Trade) Dose Ordered Sig/Patti Route Start Time Stop Time Status Last Admin Dose Admin Acetaminophen (Tylenol Tab) 650 mg Q4H PRN PO 06/01/17 14:45 07/01/17 14:44 Al Hydrox/Mg Hydrox/Simethicone (Maalox Max Susp) 15 ml Q4H PRN PO 06/01/17 14:45 07/01/17 14:44 06/04/17 17:24 15 ML Magnesium Hydroxide (Milk Of Magnesia Susp) 30 ml Q12H PRN PO 06/01/17 14:45 07/01/17 14:44 Ondansetron HCl (Zofran Inj) 4 mg Q6H PRN IV 06/01/17 14:45 07/01/17 14:44 06/01/17 16:44 4 MG Pantoprazole Sodium (Protonix Tab) 40 mg BID PO 06/01/17 21:00 07/01/17 20:59 06/06/17 07:59 40 MG Polyethylene (Miralax Powder Packet) 17 gm DAILY PO 06/02/17 09:00 07/01/17 14:44 06/04/17 08:12 17 GM Hydralazine HCl (HydrALAZINE INJ) 5 mg Q6 PRN IV. 06/01/17 15:15 07/01/17 15:14 06/02/17 16:10 5 MG Morphine Sulfate (MoRPHine SULFATE INJ) 1 mg Q4H PRN IV 06/01/17 15:30 06/15/17 15:29 Amlodipine Besylate (Norvasc Tab) 5 mg QPM PO 06/02/17 21:00 07/02/17 20:59 06/05/17 21:02 5 MG Sodium Chloride (Sodium Chloride Tab) 1 gm BID PO 06/04/17 21:00 07/04/17 20:59 06/06/17 07:59 1 GM Enteral Nutritional Formula (Boost) 1 can BIDM PO 06/04/17 17:00 07/04/17 16:59 06/06/17 07:58 1 CAN Cosyntropin 1 mcg/ Syringe 0.5 ml @ 1 mls/min TODAY@0600 IV 06/07/17 06:00 06/07/17 18:00 (Ashley Puga, HARSH) Objective Vital Signs Date Time Temp Pulse Resp B/P (MAP) Pulse Ox O2 Delivery O2 Flow Rate FiO2 06/06/17 13:11 Room Air 06/06/17 07:40 Room Air 06/06/17 07:16 36.5 72 18 135/80 (98) 97 Room Air 06/06/17 04:00 Room Air 06/06/17 03:50 36.3 62 18 130/69 (89) 98 Room Air 06/06/17 00:00 Room Air 06/05/17 23:48 36.7 70 16 143/61 (88) 97 Room Air 136/77 (96) 115/69 (84) 06/05/17 20:12 36.5 76 20 156/78 (104) 97 06/05/17 20:00 Room Air 06/05/17 16:12 164/71 (102) 06/05/17 16:00 Room Air 06/05/17 15:47 36.2 65 18 189/76 (113) 98 Room Air 06/05/17 15:18 68 16 159/74 (102) 98 Room Air 06/05/17 15:03 66 16 152/65 (94) 97 Room Air 06/05/17 14:48 63 16 123/56 (78) 99 Room Air (Ashley Puga PA-C) Physical Exam General Appearance: WD/WN, no apparent distress, + thin Eyes: sclerae normal ENT: hearing grossly normal Neck: supple, no JVD, trachea midline Respiratory/Chest: lungs clear, normal breath sounds, no respiratory distress, no accessory muscle use Cardiovascular: regular rate, rhythm, no gallop, no murmur Abdomen: normal bowel sounds, non tender, soft Extremities: no pedal edema, no calf tenderness Neurologic/Psychiatric: alert, oriented x 3 Skin: normal color, warm/dry (Ashley Puga PA-C) Laboratory Results Last 24 Hours Test 06/06/17 08:32 White Blood Count 4.46 K/uL Red Blood Count 3.79 M/uL Hemoglobin 11.6 g/dL Hematocrit 32.3 % Mean Corpuscular Volume 85.2 fL Mean Corpuscular Hemoglobin 30.6 pg Mean Corpuscular Hemoglobin Concent 35.9 g/dl RDW Standard Deviation 38.6 fL RDW Coefficient of Variation 12.4 % Platelet Count 249 K/uL Mean Platelet Volume 9.8 fL Sodium Level 130 mmol/L Potassium Level 3.1 mmol/L Chloride Level 96 mmol/L Carbon Dioxide Level 28 mmol/L Anion Gap 7.0 mmol/L Blood Urea Nitrogen 9 mg/dl Creatinine 0.76 mg/dl Est Creatinine Clear Calc Drug Dose 81.5 ml/min Estimated GFR () 99.9 Estimated GFR (Non- 86.2 BUN/Creatinine Ratio 12.1 Random Glucose 139 mg/dl Calcium Level 8.8 mg/dl Magnesium Level 1.9 mg/dl (Ashley Puga PA-C) Assessment and Plan Mr. Siddiqui is an 81 y/o male with PMHx of BPH, HLD, HTN, Diverticulosis, Chronic Constipation, and Chronic Abdominal Pain who presents to the ED c/o SOB , Generalized Weakness, and Near-Syncope. He was found to be hypertensive with hyponatremia. Symptomatic Hyponatremia: Suspect Poor Oral Intake - RESOLVING - Na up to 130 with Na tablets and is asymptomatic - Will perform cosyntropin stim test in AM to R/O adrenal insufficiency given hyponatremia, orthostasis, and abdominal pain - Continue to trend daily BMP Weight Loss 2/2 Poor Oral Intake: - Boost BID Chronic Abdominal Pain: Wax and Wanes - Gen Surg and GI following - appreciate recommendations - unremarkable colonoscopy and plan for outpatient eval for possible cholecystectomy HTN: - Norvasc 5 mg BID DVT Prophylaxis: SCDs Code Status: FULL RESUSCITATION Disposition: - Will need two step prior to D/C - had saturations drop with ambulation with PT - Patient lives alone with support from sons - possible D/C tomorrow Continued [facility] stay due to: multiple IV medications needed Discharge planning: home (Ashley Puga, PAJessiC) Attending Attestation: Pt seen/examined, chart reviewed, care plan d/w BRIGHT Puga. I agree w/ the carter components of her documentation. Pt w/o abdominal pain. Reports that pain comes on at any time and not necessarily with food consumption. No specific foods make it worse. VSS no fever gen - thin heart - RRR lungs - CTA b/l abd - soft, NT, ND, BS+, no HSM ext - no edema A/P: Chronic abdominal pain, weight loss, failure to thrive, orthostasis - adrenal insufficiency? will perform formal cosyntropin stim test in AM to r/o such. W/u to date - EGD, colonoscopy, CT abd/pelvis, labs - without specific etiology found. Consider celiac ab's testing if cosyntropin stim test is neg. Some concern about gall bladder causing symptoms but current imaging does not show acute cholecystitis. Lap mitra has been deferred. Can likely d/c home soon. Tere GARZA MD (Jensen Garza MD)
[2017-06-06] MEDS: AMLODIPINE BESYLATE 5 MG TAB PO SCH (20:51)
[2017-06-07] VITALS: BP 145/64; PULSE 64; TEMP 36.4; O2SAT 94
[2017-06-07 04:00] VITALS: BP 136/68; PULSE 62; TEMP 36.5; O2SAT 95
[2017-06-07] MEDS ORDERED: COSYNTROPIN INJ 1 MCG in SYRINGE 0 ML IV SCH (06:00)
[2017-06-07] MEDS ORDERED: COSYNTROPIN INJ 0.25 MCG in SYRINGE 4 ML IV SCH (06:00)
[2017-06-07 07:38] VITALS: BP_SYST 148; BP_SYST 155; BP_SYST 168; BP_DIAS 71; BP_DIAS 72; BP_DIAS 79; PULSE 63; PULSE 69; PULSE 70; TEMP 37; O2SAT 98
[2017-06-07 08:47] LABS: HEMATOCRIT 31.5 % (42-52); HEMOGLOBIN 11.5 g/dL (14.0-18.0); MEAN CELL VOLUME 86.1 fL (80-100); MEAN CORPUSCULAR HEMOGLOBIN 31.4 pg (25-34); MEAN CORPUSCULAR HGB CONC 36.5 g/dl (32-36); MEAN PLATELET VOLUME 9.9 fL (7.4-10.4); PLATELET COUNT 257 K/uL (130-400); RED CELL DISTRIBUTION WIDTH CV 12.5 % (11.5-14.5); RED CELL DISTRIBUTION WIDTH SD 39.5 fL (36.4-46.3); WHITE BLOOD COUNT 5.48 K/uL (4.8-10.8)
[2017-06-07 09:19] LABS: CREATININE 0.66 mg/dl (0.60-1.40)
[2017-06-07] MEDS: SODIUM CHLORIDE 1 GM TAB PO SCH (10:32)
[2017-06-07] MEDS: POLYETHYLENE (MIRALAX) 17 GM PACK PO SCH (10:32)
[2017-06-07] MEDS: PANTOprazole SOD 40 MG TAB PO SCH (10:32)
[2017-06-07] MEDS: BOOST VANILLA PO SCH (10:35)
[2017-06-07 11:59] VITALS: BP 157/66; PULSE 63; TEMP 36.4; O2SAT 98
[2017-06-07] MEDS ORDERED: Enteral Nutrition Formula PO (14:19)
[2017-06-07] MEDS ORDERED: SDMC1 PO (14:19)
[2017-06-07] MEDS ORDERED: NRV5 PO (14:19)
--- NOTE | 2017-06-07 14:31 | Discharge Instructions ---
Discharge Instructions Date of Service Jun 07, 2017. Admission Reason for Admission: Hyponatremia Discharge Discharge Diagnosis / Problem: Hyponatremia Discharge Goals Goal(s): Decrease discomfort, Improve function, Increase independence Activity Recommendations Activity Limitations: resume your previous activity . Instructions / Follow-Up Instructions / Follow-Up Low Salt Level: - Your salt level is low due to not enough intake from your diet and will continue salt tablets once a day to keep this at a good level - You also had a test done for adrenal insufficiency but it does not appear that this is the cause of your low salt Abdominal Pain and Poor Appetite: - You protein stores in your blood show that you do have a good digestive system and are absorbing food well. - Unfortunately this could be from the gallbladder not functioning as well as it should and would recommend to continue to follow with Dr. Godinez the surgeon for consultation Diet: - Continue to use Boost twice a day if you can or even if you can only have one a day that can help. - Make sure you space out your meals so that you do not have heavy large meals close together. Small periodic snacking may help - Follow a low fat diet - have provided a handout of foods to eat and avoid High Blood Pressure: - Your blood pressure was high during admission and you were started on Amlodipine 5 mg daily which seems to help. - Would discuss with your family doctor about the need for this medication or adjusting this Follow-Up: "Please, follow up at [facility] General Surgery Office with Dr. Godinez on SundayJune 12 at 8:30 am. *This office is located at [address] [place] [address] in [place]. If you need to change this appointment, you can call the office at [phone]. Please, follow up with Dr. Melendez on SundayJune 15 at 1:50 pm. *If you need to change this appointment, you can call the office at ." Current Hospital Diet Patient's current hospital diet: Low Fat Diet Discharge Diet Recommended Diet: Low Fat Diet Procedures Procedures Performed: COLONOSCOPY Pending Studies Studies pending at discharge: no Medical Emergencies . Who to Call and When: Medical Emergencies: If at any time you feel your situation is an emergency, please call 911 immediately. . Non-Emergent Contact Non-Emergency issues call your: Primary Care Provider Call Non-Emergent contact if: you have a fever, your pain is concerning you, you have any medication questions . . "Provider Documentation" section prepared by Ashley Puga. . VTE Core Measure Inpt VTE Proph given/why not?: Unfractionated heparin SQ
[2017-06-07 15:15] VITALS: BP 157/66; PULSE 63; TEMP 36.4; O2SAT 98
[2017-06-07 15:50] VITALS: BP 143/70; PULSE 73; O2SAT 98
--- NOTE | 2017-06-07 18:56 | Discharge Summary ---
Discharge Summary Date of Service Jun 07, 2017. Discharge Summary Admission Date: Jun 01, 2017 at 14:40 Discharge Date: Jun 07, 2017 Discharge Disposition: Home Principal Diagnosis: Hyponatremia Problems/Secondary Diagnoses: Other hospital problems addressed: 1. abdominal pain - chronic - etiology uncertain 2. moderate protein calorie malnutrition 3. abnormal CBC - needs follow-up Medical Problems: (1) BPH w/o urinary obs/LUTS (2) Diverticulosis (3) HTN (hypertension) (4) Hyperlipemia Surgical Problems: (1) History of bilateral mastoidectomy (2) History of right inguinal hernia repair (3) History of tonsillectomy and adenoidectomy Procedures: ABDOMINAL ULTRASOUND, RIGHT UPPER QUADRANT FINDINGS: Liver is sonographically normal. There is no biliary ductal dilatation. The common bile duct measures 4 mm in caliber. There is no gallbladder wall thickening. No gallstones are identified. There may be a small amount of sludge within the gallbladder. However, artifact is favored. Gallbladder is mildly distended. The pancreas is obscured by overlying bowel gas. There is no right hydronephrosis. IMPRESSION: 1. No gallstones or biliary ductal dilatation. 2. Mild gallbladder distention. No gallbladder wall thickening. No evidence for acute cholecystitis. Internal echoes within the gallbladder likely reflect artifact however sludge could appear similar. CT ABD/PELVIS IV AND ORAL CONT FINDINGS: Lower chest: There is a 5 mm pleural-based right lower lobe pulmonary nodule, and partially visualized 5 mm left lower lobe pleural-based nodule. Both of these nodules were present on the preceding study Liver: The contrast-enhanced liver is normal in size, contour, and attenuation. There is no intrahepatic biliary ductal dilatation. The hepatic veins and portal veins are patent. Gallbladder: Unremarkable. Spleen: Normal in size and attenuation. Pancreas: There is a stable 8 mm cystic lesion of the pancreatic body and stable 9 mm cystic lesion within the pancreatic tail. 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 Adrenal glands: Unremarkable. Kidneys: There is a 17 mm lower pole left renal cyst. Bowel: There are no transition zones indicate bowel obstruction. There is sigmoid diverticulosis. There are no acute peridiverticular inflammatory changes. The appendix appears normal. Peritoneum: There is no intraperitoneal free air or abdominal ascites. Vasculature: The abdominal aorta is normal in course and caliber. Adenopathy: None. Pelvic viscera: There is minimal prostate enlargement. Skeletal structures: There is a stable 1 cm sclerotic lesion within the posterior aspect of the left iliac bone. There is a stable 15 mm sclerotic lesion within the L2 vertebra. IMPRESSION: 1. No acute intra-abdominal or pelvic findings 2. No evidence of bowel obstruction. No evidence of free air 3. Colonic diverticulosis. No evidence of acute diverticulitis 4. Normal appendix 5. 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 Cardiac silhouette normal in size. Previously noted subcentimeter left lower lobe subpleural nodule is not apparent on this radiograph. Few calcified granuloma suggested. Lungs and pleural spaces clear. Osseous structures normal. Upper abdomen normal. IMPRESSION: 1. No acute cardiopulmonary disease. COLONOSCOPY: A few diverticula were found in the sigmoid colon. The terminal ileum appeared normal. Consultations: 1. General Surgery 2. Gastroenterology Medication Reconciliation New Medications: Amlodipine Besylate (Amlodipine Besylate) 5 Mg Tab 5 MG PO QPM for 30 Days, #30 TAB Sodium Chloride (Sodium Chloride) 1 Gm Tab 1 GM PO DAILY for 30 Days, #30 TAB [Enteral Nutrition Formula] () 1 CAN LIQD 1 CAN PO BIDM for 14 Days, #28 CAN Continued Medications: Ondansetron Hcl (Zofran) 4 Mg Tab 4 MG PO Q6H PRN for Nausea or Vomiting, TAB Pantoprazole (Protonix) 40 Mg Tab 40 MG PO BID, #30 TAB Discontinued Medications: Tamsulosin HCl (Tamsulosin HCl) 0.4 Mg Cap 0.4 MG PO DAILY Discharge Exam Review of Systems: Constitutional: + fatigue (poor sleep overnight), No fever, No chills, No weakness Respiratory: No cough, No shortness of breath Cardiovascular: No chest pain, No palpitations Abdomen: No pain, No nausea, No vomiting, No diarrhea, No constipation, No GI bleeding Musculoskeletal: No swelling, No calf pain Genitourinary - Male: No dysuria Hematologic / Lymphatic: No abnormal bleeding/bruising, No clotting problems Integumentary: No rash Physical Exam: General Appearance: no apparent distress, + thin Eyes: sclerae normal ENT: hearing grossly normal Neck: supple, no JVD, trachea midline Respiratory/Chest: lungs clear, normal breath sounds, no respiratory distress, no accessory muscle use Cardiovascular: regular rate, rhythm, no gallop, no murmur Abdomen / GI: normal bowel sounds, non tender, soft Extremities: no calf tenderness, no pedal edema Neurologic/Psychiatric: alert, oriented x 3 Skin: normal color, warm/dry Hospital Course ADMISSION: Mr. Siddiqui is an 81 y/o male with PMHx of BPH, HLD, HTN, Diverticulosis, Chronic Constipation, and Chronic Abdominal Pain who presents to the ED c/o SOB, Generalized Weakness, and Near-Syncope. Patient states when he went to bed last night he had a diffuse all-over headache. He states when he woke up this morning he noticed SOB. He denies chronic issues with SOB but reports an isolated event when he came to the ED approx. 2 weeks ago. Currently SOB resolved. His headache is waxing and waning. This AM he noticed that he was extremely weak and felt like he was going to pass out. He stated he was so weak that he needed his family to help him come to the ED. He said he was told his Na was low when he was here approx. 2 weeks ago but denies chronic issues. He also reports dizziness, states he does have some chronic issues due to ear problems and had B/L mastoidectomy at 19 yrs old. He also reports continued abdominal pain that has been going on for a long time but has been more bothersome over the past month. He states no specific cause has been identified for this. He has F/U with Dr. Thao who performed an EGD on 05/30 due to suspicion of peptic ulcer disease but no findings to support this. HIDA scan revealed a mildly reduced GB EF of 19% and does has RUQ tenderness but somewhat atypical of GB disease. On examination today he does not present with an acute abdomen but tenses with deep palpation of the RUQ, RLQ, and LLQ and reports tenderness. Does not have a direct Mercer's sign though. He also states he has chronic constipation with last BM on 05/30. He states he takes daily Miralax that seems to help. He feels that since his EGD he has been more bloated, constipated , weak, and having more gas. He reports poor oral intake due to lack of appetite. He notes that he has about a 10 lb weight loss in the previous year and feels he is still losing weight. He reports chills but no documented fever. Currently has about 6 blankets on him in the ED. He is due to see Dr. Godinez on for consultation for possible cholecystectomy. 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 Upon arrival, patient is hypertensive and his Na is 122. HOSPITAL COURSE: Mr. Siddiqui was admitted for Symptomatic Hyponatremia that appears to be possible SIADH vs Poor Solute Intake. Patient appeared euvolemic with low serum osm with Uosm of 283 and random Sara of 87. He was given 1 L NSS in ED that improved his Na from 122 to 124. Per labs it appears he has been hyponatremic at least one month and was mildly symptomatic with a headache and lethargy. He was ultimately placed on Na tablets 1 g daily and will have BMP in next 3-5 days. He did feel better as his Na improved. Given his hyponatremia, ongoing abdominal pain, and orthostasis a cosyntropin stim test was performed. Random cortisol prior to stim was 5 with stim to 20 at 1/2 hr and drop to 16 at [address] Edmondson that this definitely excludes primary adrenal insufficiency and would likely exclude secondary as he did appropriately stim even though it dropped at the one hour shruthi. He also had intermittent abdominal pain that has had an extensive evaluation with only abnormal finding was a GB EF of 19% and mild thickening and sludge. CT also mentions possible mesenteric panniculitis which could be possible however rare and diagnosis of exclusion. Was tolerating a low fat diet without issue. Is very concerned about bowel movements as he hadn't had one since after his colonoscopy however this would not be uncommon given the prep. Abdomen has remained soft without distention. Did encourage Boost to encourage more nutrition with less oral intake when he is not feeling significantly hungry. He was seen by GI and Gen Surg during admission with colonoscopy complete with only finding of diverticulosis. Gen Surg recommended outpatient follow-up for consideration of mitra pending and is due to see Dr. Godinez on 06/12. Due to significant HTN he was started on Norvasc 5 mg daily but will need to be monitored for hypotension or significant orthostasis. He has stopped his Flomax on his own and denies urinary issues but will need to be followed and maybe consideration for Proscar as alternative. OF NOTE: Patient has had numerous studies in regards to his abdominal pain. He does appear frustrated that no direct answer has been found except this mildly reduced EF of his gallbladder. Patient made the comment that he feels like his body is failing and he thinks he may in the next 1-2 years. Given his good albumin at 3.9 it doesn't appear he has a malabsorption issue or overall malnutrition. Question possibility of depression component as he also makes multiple comments of living alone, lack of energy, some anhedonia (relates this more to lack of energy).... However, there is concern for possible underlying malignancy however would expect the abdomen would not be the location. Previous imaging made note of nodules and may need further exploring with CT chest. Attending Attestation & Discharge Note: Pt seen/examined, chart reviewed, and discharge care plan d/w BRIGHT Puga on day of discharge. I agree w/ the carter components of her discharge summary. 81yo male w/ history of HTN & chronic abdominal pain with recent outpatient GI work-up including EGD by [facility] (was normal) who presented with failure to thrive, weakness, near-syncope, and ongoing abdominal pain. Found to be significantly hyponatremic at presentation with level of 122. Throughout his stay the hyponatremia, failure to thrive/protein calorie malnutrition, and abdominal pain were worked up with CT abd/pelvis, cosyntropin stim test, colonoscopy, gall bladder u/s, etc. All studies were normal and did not find a specific etiology for his symptoms. Na level did improve ultimately with use of salt tablets. Na level on day of discharge was 131. I am unclear if his hyponatremia was due to SIADH but urine osm/Na and serum osm studies seemed to support such. If he did in fact have SIADH the exact cause was also uncertain, but occult malignancy would be of most concern. Also of note is that the patient's presenting CBC showed mild leukopenia, mild anemia, and differential showed atypical lymphocytes. This will need to be repeated and potentially worked up further if these findings persist. Lastly, there is some concern that perhaps a chronic acalculous cholecystitis could be causing his abdominal symptoms. F/u with Dr. Godinez from surgery has been arranged to further explore that issue. Discharge exam - gen - NAD, thin, modestly pale neck - no lymphadenopathy heart - RRR, s1, s2 lungs - CTA b/l abd - soft, NT, ND, BS+, no HSM, no masses ext - no edema I agree with Ms. Puga to consider CT chest to exclude a lung malignancy in light of his other negative testing (CT abd/pelvis, EGD, colonoscopy). BMP will need to be rechecked at time of f/u with his PCP. Jensen Garza MD Total Time Spent: Greater than 30 minutes This includes examination of the patient, discharge planning, medication reconciliation, and communication with other providers. Discharge Instructions Please refer to the electronic Patient Visit Report (Discharge Instructions) for additional information. Additional Copies To Alfa Godinez M.D.; Zack Melendez M.D.
== END 2017-06-07 16:51 | disposition home or self-care (01) | DRG 645 ==
LOC: C.EDB 09:35 → C.MED 14:40 → EDBEDREQ 15:10 → ENRESERV 15:27 → CANRESERV 15:27 → ENRESERV 15:31
PROVIDERS: ADMIT Internal Medicine; ATTEND Internal Medicine
PROC: 0DJD8ZZ Inspection of Lower Intestinal Tract, Via Natural or Artificial Opening Endoscopic (ICD-10-PCS; principal; 2017-06-05 13:40)
DX: E22.2 Syndrome of inappropriate secretion of antidiuretic hormone (principal); N40.0 Benign prostatic hyperplasia without lower urinary tract symptoms; I10 Essential (primary) hypertension; E78.5 Hyperlipidemia, unspecified; K59.09 Other constipation; R55 Syncope and collapse; K82.8 Other specified diseases of gallbladder; Z82.49 Family history of ischemic heart disease and other diseases of the circulatory system

== ENCOUNTER → 2017-06-11 | Outpatient (CLI) | payer OTHER ==
[~2017-06-11] MED LIST changes: -BIMA0.01 OPB; +Enteral Nutrition Formula PO; -FLM4 PO; +NRV5 PO; +ONDA4TAB65 PO; +PANT1TAB3 PO; +SDMC1 PO; -[UNRECOGNIZED DRUG - OTHER] TOP
[2017-06-11 17:46] LABS: BLOOD UREA NITROGEN 15 mg/dl (7-18); CALCIUM 8.8 mg/dl (8.5-10.1); CARBON DIOXIDE 29 mmol/L (21-32); CREATININE 0.79 mg/dl (0.60-1.40); GLUCOSE 111 mg/dl (70-99); POTASSIUM 3.7 mmol/L (3.5-5.1); SODIUM 131 mmol/L (136-145)
== END | disposition home or self-care (01) ==
LOC: C.LABBFT 13:04
PROVIDERS: ATTEND Physician Assistant
DX: E87.1 Hypo-osmolality and hyponatremia (principal)

== ENCOUNTER 2017-06-25 05:09 | Observation (INO) | payer OTHER ==
[2017-06-13 15:22] VITALS: BMI 22.0
[2017-06-25] VITALS (15 sets, daily range): BP systolic 133–185; BP diastolic 65–94; PULSE 58–93; TEMP 36–36.5; O2SAT 95–100; Ht 182.9 cm; Wt 72.7 kg
[~2017-06-25] VITALS: Ht 182.9 cm; Wt 72.7 kg
[~2017-06-25 05:09] MED LIST changes: +BIMA0.01 OP; +CPRDOTS OT; -Enteral Nutrition Formula PO; +NUTR-7 PO; -SDMC1 PO; +SODIUM CHLORIDE PO
[2017-06-25] MEDS ORDERED: CEFUROXIME IV 1,500 MG in DEXTROSE 5% 100ML IV SCH (06:00)
[2017-06-25] MEDS ORDERED: LACTATED RINGER'S 1000ML 1,000 ML IV SCH (06:00)
[2017-06-25] MEDS ORDERED: ROCURONIUM BROMIDE 10 MG/ML 5 ML VIAL IV ONE (06:40)
[2017-06-25] MEDS ORDERED: PROPOFOL IV EMULSION 10 MG/ML 20 ML VIAL IV ONE (06:40)
[2017-06-25] MEDS ORDERED: LIDOCAINE HCL 2% 2 ML VIAL (20MG/ML) ONE (06:40)
[2017-06-25] MEDS ORDERED: ONDANSETRON INJ 2 MG/ML 2 ML VIAL ONE (06:40)
[2017-06-25] MEDS ORDERED: DEXAMETHASONE SOD INJ 4 MG/ML VIAL ONE (06:40)
[2017-06-25] MEDS ORDERED: FENTANYL CITRATE INJ 50 MCG/1 ML 2 ML VIAL ONE ×2 (06:41)
[2017-06-25] MEDS ORDERED: MIDAZOLAM HCL 1 MG/ML 2ML VIAL ONE (06:41)
[2017-06-25] MEDS ORDERED: BUPIVACAINE 0.5 % 5 MG/1 ML MPF 30ML VIAL ONE (06:43)
--- NOTE | 2017-06-25 06:45 | History & Physical Bridge Note ---
H&P Re-Evaluation Bridge Note: I have examined the patient, reviewed the History & Physical and in the interval since the performance of the History & Physical I have noted the following changes of clinical significance: No changes noted
[2017-06-25] MEDS ORDERED: EpHEDrine SULFATE INJ 50 MG/ML AMP IV PRN (07:00)
[2017-06-25] MEDS ORDERED: ATROPINE SULFATE 0.1 MG/ML 5ML SYR IV PRN (07:00)
[2017-06-25] MEDS ORDERED: ONDANSETRON INJ 2 MG/ML 2 ML VIAL IV PRN ×3 (07:00→18:00)
[2017-06-25] MEDS ORDERED: FENTANYL CITRATE INJ 50 MCG/1 ML 2 ML VIAL IV PRN (07:00)
--- NOTE | 2017-06-25 07:47 | [facility] Operative Report ---
Operative Report Operative Date Jun 25, 2017. Pre-Operative Diagnosis Chronic Cholecystitis, Biliary Dyskinesia Post-Operative Diagnosis Same as preoperative Procedure(s) Performed Laparoscopic Cholecystectomy Surgeon Dr. Alfa Godinez Lay Midwife Surgeon(s) Adilson Devries PA-C Estimated Blood Loss 20ML Findings dilated gb, adhesions at portahepatis Specimens A.) Gallbladder and contents Anesthesia gen Complication(s) None Disposition Recovery Room / PACU I attest to the content of the Intraoperative Record and any orders documented therein. Any exceptions are noted below.
[2017-06-25] MEDS ORDERED: MoRPHine SULFATE 2 MG/ML CARP IV PRN (08:00)
[2017-06-25] MEDS ORDERED: HYDROCODONE/ACETAMOPHEN 5/325MG TAB PO PRN ×2 (08:00)
[2017-06-25] MEDS ORDERED: MoRPHine SULFATE 4 MG/ML 1 ML CARP\\VIAL IV PRN (08:00)
[2017-06-25] MEDS ORDERED: NEOSTIGMINE METHYLSULFATE 5 MG/5 ML SYR ONE (08:09)
[2017-06-25] MEDS ORDERED: GLYCOPYRROLATE INJ 0.2 MG/ML VIAL ONE (08:09)
[2017-06-25] MEDS ORDERED: IV FLUIDS COMPLETED PRN (09:00)
--- NOTE | 2017-06-25 09:02 | OPERATIVE REPORT ---
DATE OF OPERATION: 06/25/2017 NAME OF OPERATION: Laparoscopic cholecystectomy. PREOPERATIVE DIAGNOSIS: Biliary colic and biliary dyskinesia. POSTOPERATIVE DIAGNOSIS: Same with chronic cholecystitis. STAFF SURGEON: Dr. Godinez. AREA MECHANIC: Richard Devries PA-C. ANESTHESIA: General. PROCEDURE IN DETAIL: The patient was brought in the operating room and placed on the operating table in supine position. His abdomen was prepped and draped in usual fashion. 0.5% plain Marcaine was used to anesthetize all incisions. Incision was made just above the umbilicus, carrying dissection down, placing a Veress needle through the fascia, producing pneumoperitoneum and then placing an 11 mm port at this level. Under visualization, three 5 mm ports were placed, 1 cephalad and 2 laterally. The gallbladder was very distended, it was aspirated of bile. Dissection was carried out at the carter hepatis, identifying scar tissue and chronic inflammation consistent with chronic cholecystitis. Cystic duct was identified, clipped and transected, then the cystic artery identified, clipped and transected. Gallbladder was dissected from the liver bed. There were adhesions in this area. The patient did have mild oozing which appeared to be somewhat related to possible aspirin usage. The gallbladder was placed in an Endobag and removed through the umbilical site. Port was re-placed and then I was able to aspirate and flush the area. Hemostasis was maintained. All ports were removed. The fascia at the umbilicus closed using interrupted 0 Vicryl suture and then the skin reapproximated using 4-0 nylon suture at all sites. The patient was transferred to recovery room in stable condition. As a note, my educational assistant teacher helped with prepping, draping, entering the abdominal cavity, exposing the gallbladder, and then removal of the gallbladder and closure of the abdominal cavity. I attest to the content of the Intraoperative Record and any orders documented therein. Any exception s are noted below.
--- NOTE | 2017-06-25 09:15 | Anesthesiology Progress Note ---
Anesthesia Post Op Note Date & Time Jun 25, 2017 at 09:13 Vital Signs Pain Intensity: 4 Vital Signs Past 12 Hours Date Time Temp Pulse Resp B/P (MAP) Pulse Ox O2 Delivery O2 Flow Rate FiO2 06/25/17 09:00 56 17 134/68 100 Nasal Cannula 2 06/25/17 08:50 36.2 58 19 157/73 100 Nasal Cannula 2 06/25/17 08:40 59 14 157/80 100 Nasal Cannula 2 06/25/17 08:30 56 15 153/70 100 Oxymask 10 06/25/17 08:20 56 13 152/103 100 Oxymask 10 06/25/17 08:10 65 22 174/86 100 Oxymask 10 06/25/17 08:04 36.0 67 18 177/85 100 Oxymask 10 06/25/17 05:41 36.4 69 18 157/73 (101) 99 Room Air Notes Mental Status: alert / awake / arousable, participated in evaluation Pt Amnestic to Procedure: Yes Nausea / Vomiting: adequately controlled Pain: adequately controlled Airway Patency, RR, SpO2: stable & adequate BP & HR: stable & adequate Hydration State: stable & adequate Anesthetic Complications: no major complications apparent Pt was noted to have LUE numbness mainly affecting the ulnar distribution. Pt denied CP or SOB. An EKG was ordered, and there were no new ST changes. EKG looked similar to a previous EKG. I re-evaluated the pt after a few minutes, and he stated the numbness was resolving. He had no other complaints.
[2017-06-25] MEDS: LACTATED RINGER'S 1000ML 1,000 ML IV SCH (10:20)
[2017-06-25 11:15] LABS: BASO % 0.3 %; BASO ABS # 0.02 K/uL (0-0.2); EOS % 0.8 %; EOS ABS # 0.05 K/uL (0-0.5); HEMATOCRIT 30.6 % (42-52); IG# 0.01 K/uL (0.00-0.02); LYMPH % 15.7 %; LYMPH ABS # 1.04 K/uL (1.2-3.4); MEAN CELL VOLUME 87.7 fL (80-100); MEAN CORPUSCULAR HEMOGLOBIN 31.5 pg (25-34); MEAN CORPUSCULAR HGB CONC 35.9 g/dl (32-36); MEAN PLATELET VOLUME 10.1 fL (7.4-10.4); MONO % 1.5 %; NEUT % 81.5 %; NEUT ABS # 5.41 K/uL (1.4-6.5); PLATELET COUNT 213 K/uL (130-400); RED CELL DISTRIBUTION WIDTH CV 12.4 % (11.5-14.5); WHITE BLOOD COUNT 6.63 K/uL (4.8-10.8)
[2017-06-25 11:39] LABS: CALCIUM 8.9 mg/dl (8.5-10.1); CREATININE 0.75 mg/dl (0.60-1.40); POTASSIUM 3.4 mmol/L (3.5-5.1)
--- NOTE | 2017-06-25 11:59 | Medical Consult ---
Consultation Date of Consultation: Jun 25, 2017. Attending Physician: Alfa Godinez M.D. Reason for Consultation: post-op medical management History of Present Illness 81yo male - recent hospital admission for abdominal pain of several months duration along with weight loss - who presented today for elective lap mitra by Dr. Alfa Godinez for suspected chronic cholecystitis. Since hospital d/c a few weeks ago he states "I've been weak" and reports possible additional weight loss. Despite the weight loss he reports eating/drinking like normal. His only other complaint today is that of urinary frequency, especially at night , along with some urinary hesitancy. Past Medical/Surgical History PMH: 1. HTN 2. BPH 3. diverticulosis 4. hyponatremia - recent onset 5. hyperlipidemia PSH: 1. lap mitra - 06/25/17 - Dr. Godinez 2. History of bilateral mastoidectomy 3. History of right inguinal hernia repair 4. 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) Allergies Coded Allergies: POLLEN (Verified Allergy, Unknown, WHEEZING,STUFFY NOSE, 06/25/17) Atorvastatin (Unverified Adverse Reaction, Intermediate, MUSCLE ACHES, CRAMPING, 06/25/17) Milk (Verified Adverse Reaction, Unknown, MILK PRODUCTS-GI UPSET, 06/25/17) Current Inpatient Medications Current Inpatient Medications Medications (Trade) Dose Ordered Sig/Patti Route Start Time Stop Time Status Last Admin Dose Admin Lactated Ringer's 1,000 ml @ 15 mls/hr Q24H IV 06/25/17 06:00 06/26/17 05:59 06/25/17 05:55 15 MLS/HR Cefuroxime Sodium 1500 mg/Dextrose 115 ml @ 230 mls/hr TODAY@0600 IV 06/25/17 06:00 06/25/17 15:59 06/25/17 06:55 230 MLS/HR Fentanyl Citrate (Fentanyl Inj) 25 mcg Q5M PRN IV 06/25/17 07:00 06/25/17 12:00 Ondansetron HCl (Zofran Inj) 4 mg ONE PRN IV 06/25/17 07:00 Ephedrine Sulfate (EpHEDrine SULFATE INJ) 5 mg Q5M PRN IV 06/25/17 07:00 06/25/17 12:00 Atropine Sulfate (Atropine Sulfate 0.1mg/ml Inj) 0.5 mg Q1M PRN IV 06/25/17 07:00 06/25/17 12:00 Amlodipine Besylate (Norvasc Tab) 5 mg QPM PO 06/25/17 21:00 07/25/17 20:59 Pantoprazole Sodium (Protonix Tab) 40 mg BID PO 06/25/17 21:00 07/25/17 20:59 Lactated Ringer's 1,000 ml @ 50 mls/hr Q20H IV 06/25/17 10:15 07/25/17 10:14 06/25/17 10:20 50 MLS/HR Cefuroxime Sodium 1500 mg/Dextrose 115 ml @ 200 mls/hr Q8H IV 06/25/17 14:00 07/05/17 13:59 Acetaminophen/ Hydrocodone Bitart ([place] 5/325 Tab) 1 tab Q4 PRN PO 06/25/17 08:00 07/09/17 07:59 Acetaminophen/ Hydrocodone Bitart ([place] 5/325 Tab) 2 tab Q4 PRN PO 06/25/17 08:00 07/09/17 07:59 Morphine Sulfate (MoRPHine SULFATE INJ) 2 mg Q4H PRN IV 06/25/17 08:00 07/09/17 07:59 Morphine Sulfate (MoRPHine SULFATE INJ) 4 mg Q4H PRN IV 06/25/17 08:00 07/09/17 07:59 Ondansetron HCl (Zofran Inj) 4 mg Q6H PRN IV 06/25/17 08:00 07/25/17 07:59 Miscellaneous (Iv Fluids Completed) 1 ea PRN PRN N/A 06/25/17 09:00 06/25/18 08:59 Review of Systems Constitutional: + weight loss, + weakness, + fatigue, No fever, No chills, No sweats Eyes: No worsening of vision ENT: No nasal symptoms, No sore throat, No trouble swallowing Respiratory: No cough, No sputum, No wheezing, No dyspnea on exertion, No dyspnea at rest Cardiovascular: No chest pain Abdomen: + pain, + constipation, No nausea, No vomiting, No diarrhea, No GI bleeding Musculoskeletal: No joint pain, No muscle pain Genitourinary - Male: + urinary frequency, + urinary hesitancy, + problem reported (nocturia), No dysuria Neurologic: No vertigo, No balance problems Psychiatric: + depression symptoms (mild), No anxiety Endocrine: + fatigue, + excessive urination, No excessive thirst Hematologic / Lymphatic: No abnormal bleeding/bruising Integumentary: No rash Physical Exam Date Time Temp Pulse Resp B/P (MAP) Pulse Ox O2 Delivery O2 Flow Rate FiO2 06/25/17 10:15 36.4 58 15 165/77 (106) 100 Nasal Cannula 2.0 06/25/17 09:47 36.5 58 14 154/77 (102) 100 Room Air 06/25/17 09:15 100 Nasal Cannula 2.0 06/25/17 09:15 100 Nasal Cannula 2.0 06/25/17 09:15 36.0 59 14 150/74 (99) 100 Nasal Cannula 2.0 06/25/17 09:00 56 17 134/68 100 Nasal Cannula 2 06/25/17 08:50 36.2 58 19 157/73 100 Nasal Cannula 2 06/25/17 08:40 59 14 157/80 100 Nasal Cannula 2 06/25/17 08:30 56 15 153/70 100 Oxymask 10 06/25/17 08:20 56 13 152/103 100 Oxymask 10 06/25/17 08:10 65 22 174/86 100 Oxymask 10 06/25/17 08:04 36.0 67 18 177/85 100 Oxymask 10 06/25/17 05:41 36.4 69 18 157/73 (101) 99 Room Air General Appearance: no apparent distress, + thin Head: normocephalic, atraumatic Eyes: PERRL, sclerae normal ENT: pharynx normal (MM slightly dry) Neck: supple, no adenopathy, thyroid normal, no JVD Respiratory/Chest: lungs clear, no respiratory distress, no accessory muscle use Cardiovascular: regular rate, rhythm, no gallop, no murmur, normal peripheral pulses, + pertinent finding (heart tones distant) Abdomen/GI: normal bowel sounds, non tender, soft, no organomegaly, + pertinent finding (dressings intact abdominal wall) Back: normal inspection Extremities/Musculoskelatal: no pedal edema Neurologic/Psych: no motor/sensory deficits, alert, normal reflexes, oriented x 3 Skin: no rash, + pallor (mild) Lymphatic: no adenopathy (cervical ) Assessment & Plan 81yo male with HTN, BPH, and hyperlipidemia - recent hospital admission for failure to thrive/weight loss/abdominal pain - found to have hyponatremia and possible chronic cholecystitis - presenting today for elective lap mitra by Dr. Alfa Godinez. He is resting comfortably on the surgical floor during my assessment. Main complaints following his recent hospital d/c are that of fatigue, weight loss (probable), and urinary frequency/nocturia. 1. hyponatremia - exact etiology during last hospital stay was uncertain but concerning for SIADH. He has been taking a salt tab daily since then. Check BMP now for stability and again in the AM. 2. recent abnormal CBC - recheck CBC now for stability. 3. HTN - continue home medications; stable at this time. 4. ongoing weight loss, fatigue - uncertain if his chronic cholecystitis explains all of these symptoms. If symptoms persist despite lap mitra then additional outpatient work-up will be needed. 5. urinary frequency - possible due to BPH, but check u/a to ensure no UTI. 6. recent weakness - PT evaluation to ensure safe & strong enough for home. 7. s/p lap mitra - management per Dr. Godinez. Thank you for this consult. Will follow with you.
[2017-06-25] MEDS ORDERED: POTASSIUM CHLORIDE 10 MEQ TABCR PO ONE (13:00)
[2017-06-25] MEDS: SODIUM CHLORIDE 1 GM TAB PO SCH (13:51)
[2017-06-25] MEDS: CEFUROXIME IV 1,500 MG in DEXTROSE 5% 100ML 100 ML IV SCH ×2 (13:56→22:30)
[2017-06-25] MEDS: PANTOprazole SOD 40 MG TAB PO SCH (20:58)
[2017-06-25] MEDS: AMLODIPINE BESYLATE 5 MG TAB PO SCH (20:58)
--- NOTE | 2017-06-25 22:18 | Progress Note ---
Progress Note Date of Service Jun 25, 2017. Progress Note time of note - 2213 Late entry for 2nd visit to the patient's bedside earlier this afternoon, likely about 1700. Pt apparently had nausea with emesis about 3pm. He felt dizzy when he got up to ambulate. He had emesis of everything he ate for lunch. He also apparently had had anterior and posterior left shoulder pain that resolved after about 10 minutes. He denied any chest pain, dyspnea, left arm pain, left arm numbness, neck pain. I ordered an EKG - NSR, modest flattening of ST segment in V2 -- all ST segments were UNCHANGED from prior EKGs. I checked the patient at the bedside; he was resting comfortably during this additional visit. He looked the same as he did this am. He denied any further nausea, emesis, shoulder discomfort or any other new complaints. exam unchanged - heart with RRR, s1, s2 lungs - CTA b/l abd - soft, ND, NT, BS+ ext - left shoulder with full passive ROM without pain chest - no tenderness with palpation I called and spoke with Dr. Godinez, informed him of afternoon events. I have low suspicion that his symptoms are cardiac in nature; suspect the nausea /emesis was due to post-op effects from anesthesia. Left shoulder discomfort - uncertain etiology - will continue to monitor carefully. Repeat labs in AM. Tere PASTRANA MD
[2017-06-26 04:00] VITALS: BP 140/76; PULSE 81; TEMP 36.2; O2SAT 95
[2017-06-26 05:19] LABS: HEMOGLOBIN 10.7 g/dL (14.0-18.0); MEAN CORPUSCULAR HGB CONC 35.7 g/dl (32-36); MEAN PLATELET VOLUME 10.2 fL (7.4-10.4); PLATELET COUNT 238 K/uL (130-400); RED CELL DISTRIBUTION WIDTH CV 12.4 % (11.5-14.5); RED CELL DISTRIBUTION WIDTH SD 39.7 fL (36.4-46.3); WHITE BLOOD COUNT 9.77 K/uL (4.8-10.8)
[2017-06-26] MEDS: CEFUROXIME IV 1,500 MG in DEXTROSE 5% 100ML 100 ML IV SCH (05:58)
[2017-06-26 06:01] LABS: ALBUMIN 3.8 gm/dl (3.4-5.0); ALKALINE PHOSPHATASE 55 U/L (45-117); ALT/SGPT 48 U/L (12-78); AST/SGOT 52 U/L (15-37); BLOOD UREA NITROGEN 16 mg/dl (7-18); CALCIUM 8.9 mg/dl (8.5-10.1); CARBON DIOXIDE 26 mmol/L (21-32); CREATININE 0.89 mg/dl (0.60-1.40); GLUCOSE 120 mg/dl (70-99); PHOSPHORUS 3.5 mg/dl (2.5-4.9); POTASSIUM 4.5 mmol/L (3.5-5.1); SODIUM 133 mmol/L (136-145); TOTAL PROTEIN 7.1 gm/dl (6.4-8.2)
--- NOTE | 2017-06-26 06:10 | Surgery Progress Note ---
Surgery Progress Note Date of Service Jun 26, 2017. Subjective awake, alert, no nausea requesting Boost Objective Vital Signs: Date Time Temp Pulse Resp B/P (MAP) Pulse Ox O2 Delivery O2 Flow Rate FiO2 06/26/17 04:00 36.2 81 18 140/76 (97) 95 Room Air 06/25/17 23:40 97 Room Air 06/25/17 22:58 36.4 89 18 133/73 (93) 97 Room Air 06/25/17 20:57 92 151/78 (102) 06/25/17 20:40 36.4 93 18 150/83 (105) 95 Room Air 06/25/17 16:10 164/81 (108) 06/25/17 16:05 84 155/77 (103) 06/25/17 15:55 Room Air 06/25/17 15:18 88 98 06/25/17 15:08 158/75 (102) 06/25/17 14:59 36.3 90 18 185/94 (124) 100 Room Air 06/25/17 12:11 36.5 68 16 144/75 (98) 99 Nasal Cannula 2.0 06/25/17 11:15 66 16 153/76 (101) 100 Room Air 2.0 06/25/17 10:15 36.4 58 15 165/77 (106) 100 Nasal Cannula 2.0 06/25/17 09:47 36.5 58 14 154/77 (102) 100 Room Air 06/25/17 09:15 100 Nasal Cannula 2.0 06/25/17 09:15 100 Nasal Cannula 2.0 06/25/17 09:15 36.0 59 14 150/74 (99) 100 Nasal Cannula 2.0 06/25/17 09:00 56 17 134/68 100 Nasal Cannula 2 06/25/17 08:50 36.2 58 19 157/73 100 Nasal Cannula 2 06/25/17 08:40 59 14 157/80 100 Nasal Cannula 2 06/25/17 08:30 56 15 153/70 100 Oxymask 10 06/25/17 08:20 56 13 152/103 100 Oxymask 10 06/25/17 08:10 65 22 174/86 100 Oxymask 10 06/25/17 08:04 36.0 67 18 177/85 100 Oxymask 10 General Appearance: no apparent distress (alert, much less pale) Respiratory/Chest: no respiratory distress Abdomen: soft Incision(s): intact Laboratory Results: Results Past 24 Hours Test 06/25/17 11:01 06/25/17 11:13 06/26/17 05:10 Range/Units White Blood Count 6.63 9.77 4.8-10.8 K/uL Red Blood Count 3.49 3.45 4.7-6.1 M/uL Hemoglobin 11.0 10.7 14.0-18.0 g/dL Hematocrit 30.6 30.0 42-52 % Mean Corpuscular Volume 87.7 87.0 80-100 fL Mean Corpuscular Hemoglobin 31.5 31.0 25-34 pg Mean Corpuscular Hemoglobin Concent 35.9 35.7 32-36 g/dl Platelet Count 213 238 130-400 K/uL Mean Platelet Volume 10.1 10.2 7.4-10.4 fL Neutrophils (%) (Auto) 81.5 % Lymphocytes (%) (Auto) 15.7 % Monocytes (%) (Auto) 1.5 % Eosinophils (%) (Auto) 0.8 % Basophils (%) (Auto) 0.3 % Neutrophils # (Auto) 5.41 1.4-6.5 K/uL Lymphocytes # (Auto) 1.04 1.2-3.4 K/uL Monocytes # (Auto) 0.10 0.11-0.59 K/uL Eosinophils # (Auto) 0.05 0-0.5 K/uL Basophils # (Auto) 0.02 0-0.2 K/uL RDW Standard Deviation 40.0 39.7 36.4-46.3 fL RDW Coefficient of Variation 12.4 12.4 11.5-14.5 % Immature Granulocyte % (Auto) 0.2 % Immature Granulocyte # (Auto) 0.01 0.00-0.02 K/uL Sodium Level 133 133 136-145 mmol/L Potassium Level 3.4 4.5 3.5-5.1 mmol/L Chloride Level 99 99 98-107 mmol/L Carbon Dioxide Level 26 26 21-32 mmol/L Anion Gap 8.0 8.0 3-11 mmol/L Blood Urea Nitrogen 13 16 7-18 mg/dl Creatinine 0.75 0.89 0.60-1.40 mg/dl Est Creatinine Clear Calc Drug Dose 80.8 68.1 ml/min Estimated GFR () 100.4 93.6 Estimated GFR (Non- 86.6 80.8 BUN/Creatinine Ratio 17.1 17.6 10-20 Random Glucose 145 120 70-99 mg/dl Calcium Level 8.9 8.9 8.5-10.1 mg/dl Magnesium Level 2.0 2.0 1.8-2.4 mg/dl Urine Color YELLOW Urine Appearance CLEAR CLEAR Urine pH 8.5 4.5-7.5 Urine Specific Wolcott 1.012 1.000-1.030 Urine Protein NEG NEG Urine Glucose (UA) NEG NEG Urine Ketones NEG NEG Urine Occult Blood NEG NEG Urine Nitrite NEG NEG Urine Bilirubin NEG NEG Urine Urobilinogen NEG NEG Urine Leukocyte Esterase NEG NEG Phosphorus Level 3.5 2.5-4.9 mg/dl Total Bilirubin 0.4 0.2-1 mg/dl Direct Bilirubin < 0.1 0-0.2 mg/dl Aspartate Amino Transf (AST/SGOT) 52 15-37 U/L Alanine Aminotransferase (ALT/SGPT) 48 12-78 U/L Alkaline Phosphatase 55 45-117 U/L Total Protein 7.1 6.4-8.2 gm/dl Albumin 3.8 3.4-5.0 gm/dl Globulin 3.3 2.5-4.0 gm/dl Albumin/Globulin Ratio 1.2 0.9-2 Assessment & Plan 06/26/17- s/p lap mitra- feeling much better- will order Boost, stop atbx, mobilize. plan for d/c tomorrow
[2017-06-26 07:52] VITALS: BP 159/74; PULSE 77; TEMP 36.5; O2SAT 95
[2017-06-26] MEDS: BOOST VANILLA PO SCH ×2 (09:11→20:54)
[2017-06-26] MEDS: PANTOprazole SOD 40 MG TAB PO SCH ×2 (09:11→20:55)
[2017-06-26] MEDS: SODIUM CHLORIDE 1 GM TAB PO SCH (09:11)
[2017-06-26 12:18] VITALS: BP 149/69; PULSE 59; TEMP 36.4; O2SAT 97
[2017-06-26] MEDS ORDERED: HYDR-5688 PO (13:19)
--- NOTE | 2017-06-26 13:21 | Discharge Instructions ---
Discharge Instructions Date of Service Jun 26, 2017. Admission Reason for Admission: Biliary Colic, Biliary Dyskinesia Discharge Discharge Diagnosis / Problem: chronic cholecystitis Discharge Goals Goal(s): Decrease discomfort, Improve function, Improve disease control Activity Recommendations Activity Limitations: as noted below Lifting Limitations: no more than 10 pounds Exercise/Sports Limitations: until after follow-up appointment May Resume Sexual Activity: when tolerated Shower/Bathe: tomorrow Driving or Machine Use: 1 week . Instructions / Follow-Up Instructions / Follow-Up SPECIAL CARE INSTRUCTIONS: * Cover incisions and change daily for comfort/drainage. * May use ibuprofen for pain as tolerated. * Expect some swelling and bruising. Call your doctor if: * Temperature above 101 degrees * Pain not relieved by pain medicine ordered * There is increased drainage or redness from any incision * You have any unanswered questions or concerns [phone]. FOLLOW UP VISIT: If not already scheduled, please call the office for a follow-up visit. for next week- suture removal OFFICE PHONE NUMBER: Dr. Godinez Office Current Hospital Diet Patient's current hospital diet: Regular Diet Discharge Diet Recommended Diet: Regular Diet Procedures Procedures Performed: Laparoscopic Cholecystectomy Pending Studies Studies pending at discharge: no Medical Emergencies . Who to Call and When: Medical Emergencies: If at any time you feel your situation is an emergency, please call 911 immediately. . Non-Emergent Contact Non-Emergency issues call your: Primary Care Provider, Surgeon . "Provider Documentation" section prepared by Alfa Godinez. . VTE Core Measure Inpt VTE Proph given/why not?: SCD's
[2017-06-26 15:05] VITALS: BP 148/70; PULSE 63; TEMP 36.3; O2SAT 99
[2017-06-26] MEDS: LACTATED RINGER'S 1000ML 1,000 ML IV SCH ×2 (16:25→19:20)
[2017-06-26] MEDS ORDERED: NURSING VERBAL MED ORDER ONE (19:30)
[2017-06-26] MEDS: AMLODIPINE BESYLATE 5 MG TAB PO SCH (20:55)
[2017-06-26 23:10] VITALS: BP 141/66; PULSE 60; TEMP 36.7; O2SAT 98
--- NOTE | 2017-06-27 07:04 | DISCHARGE SUMMARY ---
PRINCIPAL DIAGNOSIS: Chronic cholecystitis. PROCEDURES: The patient underwent laparoscopic cholecystectomy. The patient also had some hyponatremia on admission. HISTORY OF PRESENT ILLNESS: The patient is an 81-year-old male who has been in the Emergency Room and in the hospital with abdominal pain which was felt to be potentially secondary to gallbladder dysfunction and chronic cholecystitis. On 06/25/2017, the patient was brought into the hospital where he underwent a laparoscopic cholecystectomy, which he tolerated very well. He has done quite well and has progress in both diet and activity and was felt stable for discharge home today with nursing visits. We will see him in the office next week.
[2017-06-27 07:39] VITALS: BP 141/66; PULSE 60; TEMP 36.7; O2SAT 98
[2017-06-27 07:54] VITALS: BP 128/70; PULSE 63; TEMP 36.4; O2SAT 96
[2017-06-27 08:10] VITALS: O2SAT 96
[2017-06-27] MEDS: BOOST VANILLA PO SCH (08:52)
[2017-06-27] MEDS: SODIUM CHLORIDE 1 GM TAB PO SCH (08:53)
[2017-06-27] MEDS: PANTOprazole SOD 40 MG TAB PO SCH (08:53)
== END 2017-06-27 09:45 | disposition home health service (06) ==
LOC: C.ACU 05:09 → C.MSN 07:52 → ENRESERV 08:31
PROVIDERS: ADMIT Surgery; ATTEND Surgery
DX: K80.44 Calculus of bile duct with chronic cholecystitis without obstruction (principal); K82.8 Other specified diseases of gallbladder; N40.0 Benign prostatic hyperplasia without lower urinary tract symptoms; E87.1 Hypo-osmolality and hyponatremia; I10 Essential (primary) hypertension; E78.5 Hyperlipidemia, unspecified; K57.90 Diverticulosis of intestine, part unspecified, without perforation or abscess without bleeding; Z90.13 Acquired absence of bilateral breasts and nipples; Z86.010 Personal history of colon polyps; Z85.828 Personal history of other malignant neoplasm of skin; Z79.899 Other long term (current) drug therapy; Z90.89 Acquired absence of other organs; Z83.79 Family history of other diseases of the digestive system; Z82.49 Family history of ischemic heart disease and other diseases of the circulatory system

== ENCOUNTER 2017-07-06 10:18 | Inpatient (IN) | payer OTHER ==
[~2017-07-06] VITALS: Ht 182.9 cm; Wt 71.1 kg
[~2017-07-06 10:18] MED LIST changes: -BIMA0.01 OP; -CPRDOTS OT; +HYDR-5688 PO; -NUTR-7 PO
[2017-07-06] MEDS ORDERED: SODIUM CHLORIDE 0.9% 1000ML 1,000 ML IV STA (11:02)
[2017-07-06] MEDS ORDERED: SDMC1 PO (11:08)
[2017-07-06] MEDS ORDERED: OPTIRAY 320 IV PRN (11:15)
[2017-07-06 11:29] LABS: BASO % 0.4 %; BASO ABS # 0.02 K/uL (0-0.2); EOS % 5.8 %; EOS ABS # 0.29 K/uL (0-0.5); HEMATOCRIT 28.9 % (42-52); HEMOGLOBIN 10.4 g/dL (14.0-18.0); IG# 0.01 K/uL (0.00-0.02); LYMPH % 42.5 %; LYMPH ABS # 2.13 K/uL (1.2-3.4); MEAN CELL VOLUME 85.3 fL (80-100); MEAN CORPUSCULAR HEMOGLOBIN 30.7 pg (25-34); MONO % 11.2 %; MONO ABS # 0.56 K/uL (0.11-0.59); NEUT % 39.9 %; PLATELET COUNT 237 K/uL (130-400); RED CELL DISTRIBUTION WIDTH CV 12.3 % (11.5-14.5); RED CELL DISTRIBUTION WIDTH SD 38.2 fL (36.4-46.3); WHITE BLOOD COUNT 5.01 K/uL (4.8-10.8)
[2017-07-06 11:39] LABS: PTT PATIENT 28.5 SECONDS (21.0-31.0)
[2017-07-06 11:44] LABS: INFLUENZA B ANTIGEN Neg for Influ B (NEG)
[2017-07-06 11:45] LABS: ALBUMIN 3.6 gm/dl (3.4-5.0); ALT/SGPT 26 U/L (12-78); AST/SGOT 24 U/L (15-37); BLOOD UREA NITROGEN 7 mg/dl (7-18); CALCIUM 8.9 mg/dl (8.5-10.1); CARBON DIOXIDE 27 mmol/L (21-32); CREATININE 0.75 mg/dl (0.60-1.40); GLUCOSE 106 mg/dl (70-99); LIPASE 120 U/L (73-393); POTASSIUM 3.5 mmol/L (3.5-5.1); SODIUM 126 mmol/L (136-145)
[2017-07-06 11:50] LABS: ALKALINE PHOSPHATASE 65 U/L (45-117)
--- NOTE | 2017-07-06 12:36 | DIAGNOSTIC IMAGING REPORT ---
(CHEST FOR PE) ANGIO WITH CT DOSE: 656.77 mGy.cm HISTORY: 81 years-old Male presents with acute weakness, nausea and generalized abdominal pain. Recent cholecystectomy 06/25/2017. TECHNIQUE: Multiple CTA images of the chest were obtained after the intravenous administration of 93 ml Optiray 320. Coronal and sagittal MIPS were obtained from the axial data set and were submitted for review. A dose lowering technique was utilized adhering to the principles of ALARA. COMPARISON: CT abdomen and pelvis of same day, CT abdomen and pelvis 06/01/2017, chest radiograph 06/01/2017. FINDINGS: CTA: Heart is upper limits of normal in size without pericardial effusion. Coronary arterial disease. Thoracic aorta is normal in both course and caliber without aneurysm or dissection. Imaged great vessels appear patent. Mild to moderate mixed plaquing of the thoracic aorta. The pulmonary arterial tree is opacified to level of the proximal subsegmental branches and demonstrates no focal filling defects to suggest pulmonary thromboembolic disease. CT CHEST: Thyroid is mildly heterogeneous without dominant nodule identified. Multiple mildly prominent mediastinal and hilar lymph nodes measuring up to 9 mm in short axis which include left paratracheal, precarinal, subcarinal and right hilar lymph nodes. No pathologically enlarged lymph nodes are seen by CT size criteria. There is no pleural effusion or pneumothorax identified. Mild to moderate biapical pleural-parenchymal scarring is noted. Nodule with peripheral calcification measuring 5 mm is noted within the right lower lobe on image 143 series 4. 3 mm Fissural lymph node is seen on image 158 series 4. 5 mm pleural-based solid nodule of the right lower lobe is noted on image 111 of series 4. Nodules of the right lung apex measuring up to 5 mm. Pleural-based 6 mm nodule of the left lower lobe, image 102 series 4. Multiple nodules in left lung apex are noted as well at least one of which demonstrates a peripheral calcification. Central airways appear patent. Mild bronchial wall thickening is noted at the level the lung bases. Mild bibasilar atelectasis. No acute abnormality of the imaged upper abdomen. Prior cholecystectomy. Mild stranding in the carter hepatis is likely secondary to post cholecystectomy state. Mild bilateral gynecomastia. IMPRESSION: 1. Multiple bilateral scattered solid pulmonary nodules as above measuring up to 6 mm. Follow-up guidelines provided below. 2. Mildly prominent nonenlarged nodes of the mediastinum and right hilum may be on a reactive basis. 3. Mild bibasilar bronchial wall thickening suggests bronchitis. 4. Prior cholecystectomy. Please refer to below summary of Fleischner criteria recommendations for follow-up of incidental CT nodules (Janet Ferrell, Guidelines for management of small pulmonary nodules detected on CT scans: A statement from the Fleischner Society, Radiology 237: [phone].) SOLID NODULES Multiple nodules size: <6 mm * Low risk patients: no routine follow-up * high risk patients: optional CT at 12 months Multiple nodules size: 6-8 mm * Low risk patients: follow-up at 3-6 months, then consider further follow-up at 18-24 months * high risk patients: follow-up at 3-6 months, then at 18-24 months if no change Note: newly detected indeterminate nodule in persons 35 years of age or older. * Low risk patients: minimal or absent history of smoking and/or other known risk factors * high risk patients: history of smoking or of other known risk factors (e.g. first degree relative with lung cancer, or exposure to asbestos, radon, uranium) * if a nodule up to 8 mm is partly solid or is ground glass further follow-up is required after 24 months to exclude possible slow growing adenocarcinoma (NATHAN). The above report was generated using voice recognition software. It may contain grammatical, syntax or spelling errors. Electronically signed by: Esteban Monahan M.D. 07/06/2017 12:35 PM Dictated Date/Time: 07/06/2017 12:25 PM
--- NOTE | 2017-07-06 12:39 | DIAGNOSTIC IMAGING REPORT ---
CT SCAN OF THE ABDOMEN AND PELVIS WITH IV CONTRAST CLINICAL HISTORY: Nausea. Weakness. Generalized abdominal pain. COMPARISON STUDY: Abdominal CT dated 06/01/2017. TECHNIQUE: Following the IV administration of 93 cc of Optiray 320, CT scan of the abdomen and pelvis is performed from the lung bases to the proximal femora. Images are reviewed in the axial, sagittal, and coronal planes. IV contrast was administered without complication. A dose lowering technique was utilized adhering to the principles of ALARA. FINDINGS: Lung bases: The heart is normal in size and without pericardial effusion. A 7 mm pleural-based nodule in the right lower lobe in image #4 and a 7 mm pulmonary nodule in the left lower lobe on image #17 are unchanged. No airspace consolidation or pleural effusion is identified. There is a tiny hiatal hernia. Liver: The contrast-enhanced liver is normal in size, contour, and attenuation. There is no intrahepatic biliary ductal dilatation. The hepatic veins and portal veins are patent. Gallbladder: Surgically absent noting clips in the gallbladder fossa. Minimal stranding is seen in the gallbladder fossa. No fluid collection is identified. Spleen: Normal in size and attenuation. Pancreas: The pancreas is moderately atrophic. Two 9 mm ovoid hypodensities in the pancreatic tail seen on images #112 and #116 likely represent small sidebranch IPMN's. Adrenal glands: Unremarkable. Kidneys: The contrast enhanced kidneys are atrophic and without hydronephrosis. The kidneys enhance symmetrically. A 1.5 cm cyst is seen in the left lower pole. Additional subcentimeter cortical hypodensities also likely represent cysts but are too small for definitive characterization. Abdominal vasculature: The abdominal aorta is normal in course and caliber noting advanced atherosclerotic calcification. Bowel: There is moderate to advanced colonic diverticulosis without CT evidence of acute diverticulitis. No bowel obstruction is identified. The appendix is well-visualized and normal. Peritoneum: There is no intraperitoneal free air or abdominal ascites. Lymphadenopathy: None. Pelvic viscera: There is median lobe hypertrophy of the prostate gland. The bladder is normal as imaged. Skeletal structures: The skeletal structures are osteopenic. No lytic or blastic lesions are seen. There is mild to moderate lumbosacral spondylosis. IMPRESSION: 1. There are no acute infectious or inflammatory findings in the abdomen or pelvis. 2. There are postoperative changes from interval cholecystectomy. Minimal stranding in the gallbladder fossa is likely related to recent surgery. No fluid collection is identified. 3. Moderate to advanced colonic diverticulosis without CT evidence of acute diverticulitis. 4. Subcentimeter pulmonary and pleural-based nodules at the lung bases are similar to previous. 5. Additional findings as above. Electronically signed by: Elbert Mcfadden M.D. 07/06/2017 12:38 PM Dictated Date/Time: 07/06/2017 12:32 PM
[2017-07-06] MEDS ORDERED: BIMA0.01 OP (15:19)
[2017-07-06] MEDS ORDERED: NUTR-7 PO (15:19)
[2017-07-06] MEDS ORDERED: CPRDOTS OT (16:01)
[2017-07-06] MEDS ORDERED: POLYETHYLENE (MIRALAX) 17 GM PACK PO PRN (16:30)
[2017-07-06] MEDS ORDERED: ACETAMINOPHEN 325 MG TAB PO PRN (16:30)
[2017-07-06] MEDS ORDERED: MAGNESIUM HYDROXIDE SUSP 30 ML UDC PO PRN (16:30)
[2017-07-06] MEDS ORDERED: ONDANSETRON 4 MG TAB PO PRN (16:30)
[2017-07-06] MEDS ORDERED: ALUMINUM/MAGNESIUM/SIMETH (MAALOX MAX) 30 ML UDC PO PRN (16:30)
[2017-07-06] MEDS ORDERED: ONDANSETRON INJ 2 MG/ML 2 ML VIAL IV PRN (16:30)
--- NOTE | 2017-07-06 17:00 | History and Physical ---
History & Physical Date & Time of Service: Jul 06, 2017 at 16:50 Chief Complaint: Weakness, Loss Of Appetite Primary Care Physician: Zack Melendez M.D. History of Present Illness Source: patient, family Mr. Siddiqui is an 81 y/o male with PMHx of BPH, HLD, HTN, Diverticulosis, Chronic Constipation, and S/P Cholecystectomy (06/25) who presents to the ED c/o generalized weakness and loss of appetite. Patient states after his GB was removed he was feeling much better. He noticed that his bowel movements became regular and abdominal discomfort resolved. He has had generalized weakness that is ongoing but felt that it was getting progressively better for about 5-7 days then seemed to decline again. He has been continuing his salt tablets daily but also states he tries to drink a lot of water. Reporting that he goes to the bathroom frequently at night and urine is mosly light yellow/clear. Hyponatremia has become a chronic issue for him and seemed to improve with salt tablets. Previous admission labs support an SIADH picture and there is presence of pulmonary nodules. Previous labs have been largely unremarkable. ACTH stim test showed low normal AM cortisol baseline of 5 with stim to 20 at 30 mins and decrease to 16 at 60 minutes which was discussed with endocrine at that time and supported a R/O for primary and secondary adrenal insufficiency. Family is concerned as patient lives alone and is weak. He has been taking Boost supplementation. His albumin levels are WNL and does not appear to have underlying absorption issues. Past Medical/Surgical History 1. BPH 2. HLD 3. HTN 4. Diverticulosis 5. Chronic Constipation 6. S/P Lap Cholecystectomy 7. S/P B/L Mastoidectomy 8. Chronic Hyponatremia Family History Heart disease Hypertension Social History Smoking Status: Never Smoker Smokeless Tobacco Use: No Alcohol Use: none Drug Use: none Marital Status: Housing status: lives alone Occupational Status: retired Multi-Drug Resistant Organisms History of MDRO: No Allergies Coded Allergies: POLLEN (Verified Allergy, Unknown, WHEEZING,STUFFY NOSE, 07/06/17) Atorvastatin (Unverified Adverse Reaction, Intermediate, MUSCLE ACHES, CRAMPING, 07/06/17) Milk (Verified Adverse Reaction, Unknown, MILK PRODUCTS-GI UPSET, 07/06/17) Home Medications Scheduled Amlodipine Besylate (Amlodipine Besylate), 5 MG PO QPM Bimatoprost (Lumigan), 1 DROPS OP QAM Nutritional Supplements (Boost), 1 DOSE PO BID Pantoprazole (Protonix), 40 MG PO BID Sodium Chloride (Sodium Chloride), 1 GM PO DAILY Scheduled PRN Ciprofloxacin/Dexamethasone (Ciprodex 0.3-0.1 %), 4 DROPS OT BID PRN for UNDECIDED Ondansetron Hcl (Zofran), 4 MG PO Q6H PRN for Nausea or Vomiting Review of Systems General/Constitutional: + Fatigue, + Weakness, + Weight Loss; Denies fever/ chills ENT: Denies visual changes, nasal drainage, hearing loss, sore throat, trouble swallowing Cardiovascular: Denies chest pain, palpitations, edema Respiratory: Denies cough, sputum, SOB, wheezing, orthopnea GI: + nausea (RESOLVED); Denies vomiting, abdominal pain, constipation, diarrhea , melena/hematochezia : + night frequency; Denies dysuria Musculoskeletal: Denies joint/muscle aches, weakness, swelling Neurologic: Denies dizziness/lightheadedness Hematologic/Lymphatic: Denies bleeding/clotting abnormalities Skin: Denies rash Physical Exam Vital Signs Date Time Temp Pulse Resp B/P (MAP) Pulse Ox O2 Delivery O2 Flow Rate FiO2 07/06/17 16:00 71 8 07/06/17 15:30 70 14 07/06/17 15:00 14 07/06/17 14:35 70 18 129/72 97 Room Air 07/06/17 13:24 69 07/06/17 12:51 70 17 156/75 99 Room Air 07/06/17 11:01 63 07/06/17 10:27 36.3 78 17 136/66 95 Room Air General Appearance: Elderly chronically-ill appearing gentlemen in [facility] who is A& O x 3 HEENT: Head is normocephalic/atraumatic; EOMI; PERRLA; Hearing grossly intact; Mucous membranes moist; Pharynx negative for exudate/lesions Neck: Supple; Trachea midline; Neg JVD Heart: RRR with no M/G/R Lungs: CTA in all lung perdue bilaterally; Respirations unlabored; Neg accessory muscle use Abdomen: Soft, non-tender, non-distended; Positive BS x 4 quadrants; lap surgical incisions well approximated with 2 sutures in lower abdominal incision Extremities: Capillary refill < 2 seconds; Neg cyanosis or edema Neurological: Speech clear; Gross motor/sensory function intact; Neg focal neurologic deficits Psychiatric: Appropriate mood, flat affect Skin: + Pallor Diagnostics Laboratory Results Results Past 24 Hours Test 07/06/17 11:08 07/06/17 11:15 07/06/17 13:05 07/06/17 15:00 Range/Units Influenza Type A Antigen Neg for Influ A NEG Influenza Type B Antigen Neg for Influ B NEG White Blood Count 5.01 4.8-10.8 K/uL Red Blood Count 3.39 4.7-6.1 M/uL Hemoglobin 10.4 14.0-18.0 g/dL Hematocrit 28.9 42-52 % Mean Corpuscular Volume 85.3 80-100 fL Mean Corpuscular Hemoglobin 30.7 25-34 pg Mean Corpuscular Hemoglobin Concent 36.0 32-36 g/dl Platelet Count 237 130-400 K/uL Mean Platelet Volume 10.0 7.4-10.4 fL Neutrophils (%) (Auto) 39.9 % Lymphocytes (%) (Auto) 42.5 % Monocytes (%) (Auto) 11.2 % Eosinophils (%) (Auto) 5.8 % Basophils (%) (Auto) 0.4 % Neutrophils # (Auto) 2.00 1.4-6.5 K/uL Lymphocytes # (Auto) 2.13 1.2-3.4 K/uL Monocytes # (Auto) 0.56 0.11-0.59 K/uL Eosinophils # (Auto) 0.29 0-0.5 K/uL Basophils # (Auto) 0.02 0-0.2 K/uL RDW Standard Deviation 38.2 36.4-46.3 fL RDW Coefficient of Variation 12.3 11.5-14.5 % Immature Granulocyte % (Auto) 0.2 % Immature Granulocyte # (Auto) 0.01 0.00-0.02 K/uL Prothrombin Time 10.3 9.0-12.0 SECONDS Prothromb Time International Ratio 1.0 0.9-1.1 Activated Partial Thromboplast Time 28.5 21.0-31.0 SECONDS Partial Thromboplastin Ratio 1.1 Sodium Level 126 136-145 mmol/L Potassium Level 3.5 3.5-5.1 mmol/L Chloride Level 93 98-107 mmol/L Carbon Dioxide Level 27 21-32 mmol/L Anion Gap 6.0 3-11 mmol/L Blood Urea Nitrogen 7 7-18 mg/dl Creatinine 0.75 0.60-1.40 mg/dl Est Creatinine Clear Calc Drug Dose 83.3 ml/min Estimated GFR () 100.4 Estimated GFR (Non- 86.6 BUN/Creatinine Ratio 9.9 10-20 Random Glucose 106 70-99 mg/dl Osmolality 265 280-300 mOsm/kg Lactic Acid Level 1.4 0.4-2.0 mmol/L Calcium Level 8.9 8.5-10.1 mg/dl Total Bilirubin 0.3 0.2-1 mg/dl Aspartate Amino Transf (AST/SGOT) 24 15-37 U/L Alanine Aminotransferase (ALT/SGPT) 26 12-78 U/L Alkaline Phosphatase 65 45-117 U/L Troponin I < 0.015 < 0.015 0-0.045 ng/ml Total Protein 7.0 6.4-8.2 gm/dl Albumin 3.6 3.4-5.0 gm/dl Globulin 3.4 2.5-4.0 gm/dl Albumin/Globulin Ratio 1.1 0.9-2 Lipase 120 73-393 U/L Urine Color YELLOW Urine Appearance CLEAR CLEAR Urine pH 8.0 4.5-7.5 Urine Specific [place] 1.015 1.000-1.030 Urine Protein NEG NEG Urine Glucose (UA) NEG NEG Urine Ketones NEG NEG Urine Occult Blood NEG NEG Urine Nitrite NEG NEG Urine Bilirubin NEG NEG Urine Urobilinogen NEG NEG Urine Leukocyte Esterase NEG NEG Test 07/06/17 15:31 07/06/17 16:39 Range/Units Microbiology Results 07/06/17 Urine Culture, Received Pending Diagnostic Radiology (CHEST FOR PE) ANGIO WITH FINDINGS: CTA: Heart is upper limits of normal in size without pericardial effusion. Coronary arterial disease. Thoracic aorta is normal in both course and caliber without aneurysm or dissection. Imaged great vessels appear patent. Mild to moderate mixed plaquing of the thoracic aorta. The pulmonary arterial tree is opacified to level of the proximal subsegmental branches and demonstrates no focal filling defects to suggest pulmonary thromboembolic disease. CT CHEST: Thyroid is mildly heterogeneous without dominant nodule identified. Multiple mildly prominent mediastinal and hilar lymph nodes measuring up to 9 mm in short axis which include left paratracheal, precarinal, subcarinal and right hilar lymph nodes. No pathologically enlarged lymph nodes are seen by CT size criteria. There is no pleural effusion or pneumothorax identified. Mild to moderate biapical pleural-parenchymal scarring is noted. Nodule with peripheral calcification measuring 5 mm is noted within the right lower lobe on image 143 series 4. 3 mm Fissural lymph node is seen on image 158 series 4. 5 mm pleural-based solid nodule of the right lower lobe is noted on image 111 of series 4. Nodules of the right lung apex measuring up to 5 mm. Pleural-based 6 mm nodule of the left lower lobe, image 102 series 4. Multiple nodules in left lung apex are noted as well at least one of which demonstrates a peripheral calcification. Central airways appear patent. Mild bronchial wall thickening is noted at the level the lung bases. Mild bibasilar atelectasis. No acute abnormality of the imaged upper abdomen. Prior cholecystectomy. Mild stranding in the carter hepatis is likely secondary to post cholecystectomy state. Mild bilateral gynecomastia. IMPRESSION: 1. Multiple bilateral scattered solid pulmonary nodules as above measuring up to 6 mm. Follow-up guidelines provided below. 2. Mildly prominent nonenlarged nodes of the mediastinum and right hilum may be on a reactive basis. 3. Mild bibasilar bronchial wall thickening suggests bronchitis. 4. Prior cholecystectomy. Please refer to below summary of Fleischner criteria recommendations for follow-up of incidental CT nodules (Janet Ferrell, Guidelines for management of small pulmonary nodules detected on CT scans: A statement from the Fleischner Society, Radiology 237: [id number].) CT SCAN OF THE ABDOMEN AND PELVIS WITH IV CONTRAST FINDINGS: Lung bases: The heart is normal in size and without pericardial effusion. A 7 mm pleural-based nodule in the right lower lobe in image #4 and a 7 mm pulmonary nodule in the left lower lobe on image #17 are unchanged. No airspace consolidation or pleural effusion is identified. There is a tiny hiatal hernia. Liver: The contrast-enhanced liver is normal in size, contour, and attenuation. There is no intrahepatic biliary ductal dilatation. The hepatic veins and portal veins are patent. Gallbladder: Surgically absent noting clips in the gallbladder fossa. Minimal stranding is seen in the gallbladder fossa. No fluid collection is identified. Spleen: Normal in size and attenuation. Pancreas: The pancreas is moderately atrophic. Two 9 mm ovoid hypodensities in the pancreatic tail seen on images #112 and #116 likely represent small sidebranch IPMN's. Adrenal glands: Unremarkable. Kidneys: The contrast enhanced kidneys are atrophic and without hydronephrosis. The kidneys enhance symmetrically. A 1.5 cm cyst is seen in the left lower pole. Additional subcentimeter cortical hypodensities also likely represent cysts but are too small for definitive characterization. Abdominal vasculature: The abdominal aorta is normal in course and caliber noting advanced atherosclerotic calcification. Bowel: There is moderate to advanced colonic diverticulosis without CT evidence of acute diverticulitis. No bowel obstruction is identified. The appendix is well-visualized and normal. Peritoneum: There is no intraperitoneal free air or abdominal ascites. Lymphadenopathy: None. Pelvic viscera: There is median lobe hypertrophy of the prostate gland. The bladder is normal as imaged. Skeletal structures: The skeletal structures are osteopenic. No lytic or blastic lesions are seen. There is mild to moderate lumbosacral spondylosis. IMPRESSION: 1. There are no acute infectious or inflammatory findings in the abdomen or pelvis. 2. There are postoperative changes from interval cholecystectomy. Minimal stranding in the gallbladder fossa is likely related to recent surgery. No fluid collection is identified. 3. Moderate to advanced colonic diverticulosis without CT evidence of acute diverticulitis. 4. Subcentimeter pulmonary and pleural-based nodules at the lung bases are similar to previous. 5. Additional findings as above. EKG Sinus rhythm with 1st degree A-V block Septal infarct (cited on or before 25-JUN-2017) Abnormal ECG When compared with ECG of 25-JUN-2017 16:47, No significant change was found Confirmed by RUI ROLAND ([id number]) on 07/06/2017 4:31:18 PM Impression Assessment and Plan Mr. Siddiqui is an 81 y/o male with PMHx of BPH, HLD, HTN, Diverticulosis, Chronic Constipation, and S/P Cholecystectomy (06/25) who presents to the ED c/o generalized weakness and loss of appetite. Hyponatremia: SIADH - Has had multiple testing that dose not support adrenal insufficiency; there was suspicion that this could have been poor solute intake given his underlying GB issues - he is S/P mitra however this was only done on 06/25 which may be too soon to tell; patient does appear to try to take in a lot of fluids which maybe the reduced Na is related to a polydipsia - reports urine normally clear/pale yellow - There is evidence of pulmonary nodules on CT - MRI combo - R/O mass or pituitary abnormality - Serum Osm low; await urine osm and random Na - Obtain random cortisol, TSH, uric acid - Fluid restrict at 1800 cc and continue salt tablets and will increase to BID HTN: - Amlodipine 5 mg daily DVT Prophylaxis: Heparin Code Status: FULL RESUSCITATION Disposition: - PT/OT evaluations - he does live alone - Unfortunately this may be an idiopathic hyponatremia vs occult tumor? Do have suspicion that underlying malignancy could be present; in regards to chronic weakness and lack of appetite as I took care of him on previous admission that I do suspect there could be an element of underlying depression Resident Physician Supervision Note: Pt evaluated independently. I discussed the case with the PA and agree with the findings and plan as documented in the note. Any exceptions or clarifications are listed here: 81 y/o M BPH, HPL, HTN, Hyponatremia, cholecystectomy (06/25) - presents w/ generalized weakness and loss of appetite. Na notably low on initial labs. Pt lives independently and cannot care for himself due pronounced weakness. He had departed the hospital after a recent admission for hypoNa without a definitive dx of SIADH. He was ruled out for adrenal insuf. OE AAO x 3 S1,2 R CTAB NT, ND - lap mitra scars are healing well No CCE P: We will treat with IVF - urine and plasma OSM ordered - will hold Na tablets and restrict his fluids as this may be psychogenic - may need alternative such as Tolvaptan or desmo if hypoNa persists or worsens He will proceed for an MRI w/w/out osmani Pt may require placement in a rehab facility if his strength does not improve with correction of Na Cont Norvasc - Heparin prophylaxis Documented By: Ramos Hayes Level of Care Med/Surg Resuscitation Status FULL RESUSCITATION VTE Prophylaxis VTE Risk Assessment Done? Y/N: Yes Risk Level: Moderate Given or contraindicated: Unfractionated heparin SQ, SCD's Social Service Consult >80 yr.& Lives Alone
--- NOTE | 2017-07-06 17:10 | EMERGENCY ROOM VISIT NOTE ---
History Report prepared by Adrien: Adali Wall Under the Supervision of: Dr. Giovanny Cruz M.D. First contact with patient: 10:56 Chief Complaint: WEAKNESS Stated Complaint: WEAKNESS, LOSS OF APPETITE Nursing Triage Summary: Weakness, poor appetite. Had gallbladder surgery on 06/25/17. C/O of being cold this AM. History of Present Illness The patient is an 81 year old male who presents to the Emergency Room with complaints of persistent weakness starting yesterday. The patient reports having a decreased appetite. He has had to force himself to eat. He had laparoscopic gallbladder surgery on June 25. He initially did have an appetite after the surgery. He had some nausea this morning. He has a dull ache in his back. He denies any vomiting, diarrhea, bloody stools, dark black stools , chest pain, or SOB. He denies any recent falls. Source of History: patient Onset: yesterday Position: other (global) Quality: other (weakness) Timing: other (persistent) Associated Symptoms: + nausea, + back pain, No chest pain, No SOB, No vomiting, No melena, No hematochezia, No diarrhea Note: Pt reports decreased appetite. Review of Systems See HPI for pertinent positives and negatives. A total of ten systems were reviewed and were otherwise negative. Past Medical & Surgical Medical Problems: (1) Biliary colic (2) BPH w/o urinary obs/LUTS (3) Diverticulosis (4) HTN (hypertension) (5) Hyperlipemia Surgical Problems: (1) History of bilateral mastoidectomy (2) History of right inguinal hernia repair (3) History of tonsillectomy and adenoidectomy Family History Heart disease Hypertension Social History Smoking Status: Never Smoker Drug Use: none Marital Status: Housing Status: lives alone Occupation Status: retired Current/Historical Medications Scheduled Amlodipine Besylate (Amlodipine Besylate), 5 MG PO QPM Bimatoprost (Lumigan), 1 DROPS OP QAM Nutritional Supplements (Boost), 1 DOSE PO BID Pantoprazole (Protonix), 40 MG PO BID Sodium Chloride (Sodium Chloride), 1 GM PO DAILY Scheduled PRN Ciprofloxacin/Dexamethasone (Ciprodex 0.3-0.1 %), 4 DROPS OT BID PRN for UNDECIDED Ondansetron Hcl (Zofran), 4 MG PO Q6H PRN for Nausea or Vomiting Allergies Coded Allergies: POLLEN (Verified Allergy, Unknown, WHEEZING,STUFFY NOSE, 07/06/17) Atorvastatin (Unverified Adverse Reaction, Intermediate, MUSCLE ACHES, CRAMPING, 07/06/17) Milk (Verified Adverse Reaction, Unknown, MILK PRODUCTS-GI UPSET, 07/06/17) Physical Exam Vital Signs Date Time Temp Pulse Resp B/P (MAP) Pulse Ox O2 Delivery O2 Flow Rate FiO2 07/06/17 16:00 71 8 07/06/17 15:30 70 14 07/06/17 15:00 14 07/06/17 14:35 70 18 129/72 97 Room Air 07/06/17 13:24 69 07/06/17 12:51 70 17 156/75 99 Room Air 07/06/17 11:01 63 07/06/17 10:27 36.3 78 17 136/66 95 Room Air Physical Exam Physical Exam GENERAL: He is oriented to person, place, and time. He appears well-developed and well-nourished. He does not appear distressed. ____ HENT: Exam performed. Head: Normocephalic and atraumatic. Right Ear: External ear normal. No mastoid tenderness. Left Ear: External ear normal. No mastoid tenderness. Mouth/Throat: The oropharynx is clear and moist. No trismus in the jaw. No dental abscesses or uvula swelling. No oropharyngeal exudate or tonsillar abscesses. ____ EYES: Conjunctivae and EOM are normal. Pupils are equal, round, and reactive to light. Right eye exhibits no discharge. Left eye exhibits no discharge. No scleral icterus. ____ NECK: Normal range of motion. Neck supple. No JVD present. No spinous process tenderness present. No carotid bruit present. No rigidity. No tracheal deviation and normal range of motion present. No Brudzinski's sign and no Kernig 's sign noted. ____ CV: Normal rate, regular rhythm, normal heart sounds and intact distal pulses. There is no peripheral edema. Palpable radial pulses bue. ____ PULM/CHEST: Effort normal and breath sounds normal. No respiratory distress. No stridor. He has no wheezes. He has no rales. Chest Wall: He exhibits no tenderness. ____ ABD: The abdomen is soft. Bowel sounds are normal. He has no distension. No mass is present. There is no tenderness. There is no rebound, no guarding, no Mercer's sign and no tenderness at McBurney's point. Rovsig negative MUSC/SKEL: Normal range of motion. There is no peripheral edema, tenderness or deformity. LYMPH: No cervical adenopathy. ____ NEURO: He is alert and oriented to person, place, and time. He has normal strength. No cranial nerve deficit or sensory deficit. Coordination and gait normal. GCS eye subscore is 4. GCS verbal subscore is 5. GCS motor subscore is 6. cerbellar tests wnl. ____ SKIN: Pale. Skin is warm and dry. He is not diaphoretic. ____ PSYCH: He has a normal mood and affect. His behavior is normal. Judgment and thought content normal. ____ Medical Decision & Procedures ER Provider Diagnostic Interpretation: Radiology results as stated below per my review and radiologist interpretation: CT SCAN OF THE ABDOMEN AND PELVIS WITH IV CONTRAST CLINICAL HISTORY: Nausea. Weakness. Generalized abdominal pain. COMPARISON STUDY: Abdominal CT dated 06/01/2017. TECHNIQUE: Following the IV administration of 93 cc of Optiray 320, CT scan of the abdomen and pelvis is performed from the lung bases to the proximal femora. Images are reviewed in the axial, sagittal, and coronal planes. IV contrast was administered without complication. A dose lowering technique was utilized adhering to the principles of ALARA. FINDINGS: Lung bases: The heart is normal in size and without pericardial effusion. A 7 mm pleural-based nodule in the right lower lobe in image #4 and a 7 mm pulmonary nodule in the left lower lobe on image #17 are unchanged. No airspace consolidation or pleural effusion is identified. There is a tiny hiatal hernia. Liver: The contrast-enhanced liver is normal in size, contour, and attenuation. There is no intrahepatic biliary ductal dilatation. The hepatic veins and portal veins are patent. Gallbladder: Surgically absent noting clips in the gallbladder fossa. Minimal stranding is seen in the gallbladder fossa. No fluid collection is identified. Spleen: Normal in size and attenuation. Pancreas: The pancreas is moderately atrophic. Two 9 mm ovoid hypodensities in the pancreatic tail seen on images #112 and #116 likely represent small sidebranch IPMN's. Adrenal glands: Unremarkable. Kidneys: The contrast enhanced kidneys are atrophic and without hydronephrosis. The kidneys enhance symmetrically. A 1.5 cm cyst is seen in the left lower pole. Additional subcentimeter cortical hypodensities also likely represent cysts but are too small for definitive characterization. Abdominal vasculature: The abdominal aorta is normal in course and caliber noting advanced atherosclerotic calcification. Bowel: There is moderate to advanced colonic diverticulosis without CT evidence of acute diverticulitis. No bowel obstruction is identified. The appendix is well-visualized and normal. Peritoneum: There is no intraperitoneal free air or abdominal ascites. Lymphadenopathy: None. Pelvic viscera: There is median lobe hypertrophy of the prostate gland. The bladder is normal as imaged. Skeletal structures: The skeletal structures are osteopenic. No lytic or blastic lesions are seen. There is mild to moderate lumbosacral spondylosis. IMPRESSION: 1. There are no acute infectious or inflammatory findings in the abdomen or pelvis. 2. There are postoperative changes from interval cholecystectomy. Minimal stranding in the gallbladder fossa is likely related to recent surgery. No fluid collection is identified. 3. Moderate to advanced colonic diverticulosis without CT evidence of acute diverticulitis. 4. Subcentimeter pulmonary and pleural-based nodules at the lung bases are similar to previous. 5. Additional findings as above. Electronically signed by: Elbert Mcfadden M.D. 07/06/2017 12:38 PM Dictated Date/Time: 07/06/2017 12:32 PM (CHEST FOR PE) ANGIO WITH CT DOSE: 656.77 mGy.cm HISTORY: 81 years-old Male presents with acute weakness, nausea and generalized abdominal pain. Recent cholecystectomy 06/25/2017. TECHNIQUE: Multiple CTA images of the chest were obtained after the intravenous administration of 93 ml Optiray 320. Coronal and sagittal MIPS were obtained from the axial data set and were submitted for review. A dose lowering technique was utilized adhering to the principles of ALARA. COMPARISON: CT abdomen and pelvis of same day, CT abdomen and pelvis 06/01/2017, chest radiograph 06/01/2017. FINDINGS: CTA: Heart is upper limits of normal in size without pericardial effusion. Coronary arterial disease. Thoracic aorta is normal in both course and caliber without aneurysm or dissection. Imaged great vessels appear patent. Mild to moderate mixed plaquing of the thoracic aorta. The pulmonary arterial tree is opacified to level of the proximal subsegmental branches and demonstrates no focal filling defects to suggest pulmonary thromboembolic disease. CT CHEST: Thyroid is mildly heterogeneous without dominant nodule identified. Multiple mildly prominent mediastinal and hilar lymph nodes measuring up to 9 mm in short axis which include left paratracheal, precarinal, subcarinal and right hilar lymph nodes. No pathologically enlarged lymph nodes are seen by CT size criteria. There is no pleural effusion or pneumothorax identified. Mild to moderate biapical pleural-parenchymal scarring is noted. Nodule with peripheral calcification measuring 5 mm is noted within the right lower lobe on image 143 series 4. 3 mm Fissural lymph node is seen on image 158 series 4. 5 mm pleural-based solid nodule of the right lower lobe is noted on image 111 of series 4. Nodules of the right lung apex measuring up to 5 mm. Pleural-based 6 mm nodule of the left lower lobe, image 102 series 4. Multiple nodules in left lung apex are noted as well at least one of which demonstrates a peripheral calcification. Central airways appear patent. Mild bronchial wall thickening is noted at the level the lung bases. Mild bibasilar atelectasis. No acute abnormality of the imaged upper abdomen. Prior cholecystectomy. Mild stranding in the carter hepatis is likely secondary to post cholecystectomy state. Mild bilateral gynecomastia. IMPRESSION: 1. Multiple bilateral scattered solid pulmonary nodules as above measuring up to 6 mm. Follow-up guidelines provided below. 2. Mildly prominent nonenlarged nodes of the mediastinum and right hilum may be on a reactive basis. 3. Mild bibasilar bronchial wall thickening suggests bronchitis. 4. Prior cholecystectomy. Please refer to below summary of Fleischner criteria recommendations for follow-up of incidental CT nodules (Janet Ferrell, Guidelines for management of small pulmonary nodules detected on CT scans: A statement from the Fleischner Society, Radiology 237: [phone].) SOLID NODULES Multiple nodules size: <6 mm * Low risk patients: no routine follow-up * high risk patients: optional CT at 12 months Multiple nodules size: 6-8 mm * Low risk patients: follow-up at 3-6 months, then consider further follow-up at 18-24 months * high risk patients: follow-up at 3-6 months, then at 18-24 months if no change Note: newly detected indeterminate nodule in persons 35 years of age or older. * Low risk patients: minimal or absent history of smoking and/or other known risk factors * high risk patients: history of smoking or of other known risk factors (e.g. first degree relative with lung cancer, or exposure to asbestos, radon, uranium) * if a nodule up to 8 mm is partly solid or is ground glass further follow-up is required after 24 months to exclude possible slow growing adenocarcinoma (NATHAN). The above report was generated using voice recognition software. It may contain grammatical, syntax or spelling errors. Electronically signed by: Esteban Monahan M.D. 07/06/2017 12:35 PM Dictated Date/Time: 07/06/2017 12:25 PM Laboratory Results Test 07/06/17 11:08 07/06/17 11:15 07/06/17 13:05 07/06/17 15:00 Influenza Type A Antigen Neg for Influ A (NEG) Influenza Type B Antigen Neg for Influ B (NEG) Immature Granulocyte % (Auto) 0.2 % White Blood Count 5.01 K/uL (4.8-10.8) Red Blood Count 3.39 M/uL (4.7-6.1) Hemoglobin 10.4 g/dL (14.0-18.0) Hematocrit 28.9 % (42-52) Mean Corpuscular Volume 85.3 fL (80-100) Mean Corpuscular Hemoglobin 30.7 pg (25-34) Mean Corpuscular Hemoglobin Concent 36.0 g/dl (32-36) Platelet Count 237 K/uL (130-400) Mean Platelet Volume 10.0 fL (7.4-10.4) Neutrophils (%) (Auto) 39.9 % Lymphocytes (%) (Auto) 42.5 % Monocytes (%) (Auto) 11.2 % Eosinophils (%) (Auto) 5.8 % Basophils (%) (Auto) 0.4 % Neutrophils # (Auto) 2.00 K/uL (1.4-6.5) Lymphocytes # (Auto) 2.13 K/uL (1.2-3.4) Monocytes # (Auto) 0.56 K/uL (0.11-0.59) Eosinophils # (Auto) 0.29 K/uL (0-0.5) Basophils # (Auto) 0.02 K/uL (0-0.2) Immature Granulocyte # (Auto) 0.01 K/uL (0.00-0.02) Prothrombin Time 10.3 SECONDS (9.0-12.0) Prothromb Time International Ratio 1.0 (0.9-1.1) Activated Partial Thromboplast Time 28.5 SECONDS (21.0-31.0) Partial Thromboplastin Ratio 1.1 Est Creatinine Clear Calc Drug Dose 83.3 ml/min Osmolality 265 mOsm/kg (280-300) Lactic Acid Level 1.4 mmol/L (0.4-2.0) Total Bilirubin 0.3 mg/dl (0.2-1) Aspartate Amino Transf (AST/SGOT) 24 U/L (15-37) Alanine Aminotransferase (ALT/SGPT) 26 U/L (12-78) Alkaline Phosphatase 65 U/L (45-117) Total Protein 7.0 gm/dl (6.4-8.2) Albumin 3.6 gm/dl (3.4-5.0) Globulin 3.4 gm/dl (2.5-4.0) Albumin/Globulin Ratio 1.1 (0.9-2) Lipase 120 U/L (73-393) Urine Color YELLOW Urine Appearance CLEAR (CLEAR) Urine pH 8.0 (4.5-7.5) Urine Specific [place] 1.015 (1.000-1.030) Urine Protein NEG (NEG) Urine Glucose (UA) NEG (NEG) Urine Ketones NEG (NEG) Urine Occult Blood NEG (NEG) Urine Nitrite NEG (NEG) Urine Bilirubin NEG (NEG) Urine Urobilinogen NEG (NEG) Urine Leukocyte Esterase NEG (NEG) Troponin I < 0.015 ng/ml (0-0.045) Laboratory results reviewed by me Medications Administered Medications (Trade) Dose Ordered Sig/Patti Route Start Time Stop Time Status Last Admin Dose Admin Sodium Chloride 1,000 ml @ 125 mls/hr Q8H STAT IV 07/06/17 11:02 07/06/17 19:01 DC 07/06/17 12:50 125 MLS/HR ECG Indication: weakness Rate (beats per minute): 67 Rhythm: sinus rhythm Findings: no acute ischemic change, no ectopy, other (NV increased at 236, QRS increased at 122, QTc WNL, no ST elevation or ST depression) Comparison ECG Date: 25-Jun-2017 Change: no significant change Change: Patient's electrocardiogram was interpreted by me. ED Course 1057: The patient was evaluated in room C10. A complete history and physical exam was performed. 1102: Sodium Chloride 1000 ml @ 125 mls/hr IV. 1509: CT abdomen within normal limits. CT chest showed no PE, did show multiple nodules. Labs within normal limits with the exception of the patient' s sodium of 126. I discussed with the patient's PCP Dr. Melendez who says his sodium is usually wnl going back to 2013. The only previous low sodium was during his May admission. This was thought to be due to his gallbladder and post operatively would be able to eat better and correct his sodium. He did prescribe sodium tablets which the patient confirms he has been taking at home. He is surprised about his sodium being low. 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 The patient lives at home and the doctor is concerned about the patient living at home with weakness and low sodium. I discussed the patient's case with ENRIQUE Allison hospitalist. He will evaluate the patient for further management. Medical Decision CT abdomen within normal limits. CT chest showed no PE, did show multiple nodules. Labs within normal limits with the exception of the patient's sodium of 126. I discussed with the patient's PCP Dr. Melendez who says his sodium is usually wnl going back to 2013. The only previous low sodium was during his May admission. This was thought to be due to his gallbladder and post operatively would be able to eat better and correct his sodium. He did prescribe sodium tablets which the patient confirms he has been taking at home. He is surprised about his sodium being low. 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 The patient lives at home and the doctor is concerned about the patient living at home with weakness and low sodium. I discussed the patient's case with ENRIQUE Allison hospitalist. He will evaluate the patient for further management. Medication Reconcilliation Current Medication List: was personally reviewed by me Blood Pressure Screening Patient's blood pressure: Elevated blood pressure Referred to hospitalist. Consults Time Called: 1503 Consulting Physician: ENRIQUE Romero Internal medicine Returned Call: 1509 I discussed the patient's case with him. Additional Consults: Time Called: 1512 Consulted Physician: Dr. Hayes [facility] hospitalist Returned Call: 1515 Additional Comments: I discussed the patient's case with him. He will evaluate the patient for further management. Impression Primary Impression: Hyponatremia Scribe Attestation The scribe's documentation has been prepared under my direction and personally reviewed by me in its entirety. I confirm that the note above accurately reflects all work, treatment, procedures, and medical decision making performed by me. The chart was completed utilizing [employer] Speech voice recognition software. Grammatical errors, random word insertions, pronoun errors, and incomplete sentences are an occasional consequence of this system due to software limitations, ambient noise, and hardware issues. Any formal questions or concerns about the content, text, or information contained within the body of this dictation should be directly addressed to the physician for clarification. Departure Information Dispostion Being Evaluated By Hospitalist Referrals Zack Melendez M.D. (PCP) Patient Instructions My [facility]
[2017-07-06 18:00] VITALS: BP 164/81; PULSE 70; TEMP 36.5; O2SAT 96; BMI 21.3
[2017-07-06 18:44] LABS: HEMATOCRIT 30.4 % (42-52); HEMOGLOBIN 11.2 g/dL (14.0-18.0); MEAN CELL VOLUME 85.2 fL (80-100); MEAN CORPUSCULAR HEMOGLOBIN 31.4 pg (25-34); MEAN CORPUSCULAR HGB CONC 36.8 g/dl (32-36); MEAN PLATELET VOLUME 9.8 fL (7.4-10.4); PLATELET COUNT 230 K/uL (130-400); RED CELL DISTRIBUTION WIDTH CV 12.3 % (11.5-14.5); RED CELL DISTRIBUTION WIDTH SD 38.3 fL (36.4-46.3); WHITE BLOOD COUNT 4.75 K/uL (4.8-10.8)
[2017-07-06 19:03] LABS: CREATININE 0.71 mg/dl (0.60-1.40); POTASSIUM 3.8 mmol/L (3.5-5.1); URIC ACID 1.1 mg/dl (2.6-7.2)
[2017-07-06] MEDS: HEPARIN SOD 5000 UNIT/0.5 ML CARP SQ SCH (20:14)
[2017-07-06] MEDS: AMLODIPINE BESYLATE 5 MG TAB PO SCH (20:14)
[2017-07-06] MEDS: PANTOprazole SOD 40 MG TAB PO SCH (20:14)
[2017-07-06] MEDS: BOOST VANILLA PO SCH (20:15)
[2017-07-06 21:05] LABS: OSMOLALITY,URINE 369 mOms/kg (500-800)
[2017-07-06 21:10] LABS: SODIUM RANDOM URINE 122 mEq/L
[2017-07-06] MEDS ORDERED: GADAVIST IV PRN (21:45)
[2017-07-06 21:54] VITALS: BP 150/78; PULSE 72; TEMP 36.3; O2SAT 100
--- NOTE | 2017-07-06 22:11 | DIAGNOSTIC IMAGING REPORT ---
BRAIN COMBO FOR PITUITARY CLINICAL HISTORY: SIADH; Pituitary Eval; Tumor? Mental status change. TECHNIQUE: Multiaxial MRI acquisition pre and post-Gadavist administration COMPARISON STUDY: None FINDINGS: Diffusion images are negative for an acute ischemic event. The pituitary is enlarged. With contrast enhancement there appears to be heterogeneity of enhancement of the central pituitary suggesting a developing macroadenoma 10 x 9 mm. The pituitary overall has a maximum linear dimension 11 mm. There is mild displacement of the pituitary stock and optic chiasm. No additional regions of enhancement are identified. Is minimal chronic small vessel change of the cerebellar regions as well as cerebral regions bilaterally. Ventricular system is midline. There is mild mucosal thickening of the mastoid air cells. IMPRESSION: 1. 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 2. Remainder the brain is negative for age. 3. Mild age-appropriate chronic small vessel change and atrophy The above report was generated using voice recognition software. It may contain grammatical, syntax or spelling errors. Electronically signed by: Rufino Huddleston M.D. 07/06/2017 10:09 PM Dictated Date/Time: 07/06/2017 10:05 PM
[2017-07-07 06:25] LABS: CALCIUM 9.1 mg/dl (8.5-10.1); CREATININE 0.87 mg/dl (0.60-1.40); POTASSIUM 4.3 mmol/L (3.5-5.1)
[2017-07-07 07:24] LABS: HEMATOCRIT 30.1 % (42-52); HEMOGLOBIN 10.9 g/dL (14.0-18.0); MEAN CELL VOLUME 85.8 fL (80-100); MEAN CORPUSCULAR HEMOGLOBIN 31.1 pg (25-34); MEAN CORPUSCULAR HGB CONC 36.2 g/dl (32-36); PLATELET COUNT 232 K/uL (130-400)
[2017-07-07 07:35] VITALS: BP 111/67; PULSE 60; TEMP 36.5; O2SAT 100
[2017-07-07] MEDS: HEPARIN SOD 5000 UNIT/0.5 ML CARP SQ SCH ×2 (09:00→20:55)
[2017-07-07] MEDS: PANTOprazole SOD 40 MG TAB PO SCH ×2 (09:22→20:54)
[2017-07-07] MEDS: BOOST VANILLA PO SCH ×2 (09:22→20:53)
[2017-07-07] MEDS: BIMATOPROST 0.01% OP SOLN 2.5 ML BTL OP SCH (09:29)
--- NOTE | 2017-07-07 09:39 | Progress Note ---
Subjective Date of Service: Jul 07, 2017. Subjective this pt complains of feeling weak. he has no headache or visual changes. we discussed about his pituitary tumor and the need for further follow up Problem List Medical Problems: (1) Epigastric pain Status: Acute (2) Nonspecific abdominal pain Status: Acute Review of Systems Constitutional: + weakness, + fatigue, No fever, No chills Respiratory: No cough, No sputum, No wheezing Cardiac: No chest pain, No edema Abdomen: No pain, No nausea, No vomiting Musculoskeletal: No joint pain, No muscle pain Male : No dysuria, No urinary frequency Neurologic: + weakness, No memory loss Psychiatric: No depression symptoms, No anhedonism Objective Vital Signs Date Time Temp Pulse Resp B/P (MAP) Pulse Ox O2 Delivery O2 Flow Rate FiO2 07/07/17 07:35 36.5 60 17 111/67 (82) 100 Room Air 07/07/17 01:31 Room Air 07/06/17 21:54 36.3 72 20 150/78 (102) 100 Room Air 07/06/17 18:00 36.5 70 16 164/81 96 Room Air 07/06/17 17:25 72 8 129/72 97 07/06/17 17:06 72 07/06/17 16:00 71 8 07/06/17 15:30 70 14 07/06/17 15:00 14 07/06/17 14:35 70 18 129/72 97 Room Air 07/06/17 13:24 69 07/06/17 12:51 70 17 156/75 99 Room Air 07/06/17 11:01 63 07/06/17 10:27 36.3 78 17 136/66 95 Room Air Physical Exam General Appearance: WD/WN, + mild distress Eyes: normal inspection, sclerae normal ENT: hearing grossly normal, pharynx normal Neck: supple, no JVD Respiratory/Chest: chest non-tender, lungs clear, normal breath sounds Cardiovascular: regular rate, rhythm, no murmur Abdomen: normal bowel sounds, non tender, soft Extremities: no pedal edema, no calf tenderness Neurologic/Psychiatric: alert, oriented x 3 Laboratory Results Last 24 Hours Test 07/06/17 11:08 07/06/17 11:15 07/06/17 13:05 07/06/17 15:00 Influenza Type A Antigen Neg for Influ A Influenza Type B Antigen Neg for Influ B White Blood Count 5.01 K/uL Red Blood Count 3.39 M/uL Hemoglobin 10.4 g/dL Hematocrit 28.9 % Mean Corpuscular Volume 85.3 fL Mean Corpuscular Hemoglobin 30.7 pg Mean Corpuscular Hemoglobin Concent 36.0 g/dl Platelet Count 237 K/uL Mean Platelet Volume 10.0 fL Neutrophils (%) (Auto) 39.9 % Lymphocytes (%) (Auto) 42.5 % Monocytes (%) (Auto) 11.2 % Eosinophils (%) (Auto) 5.8 % Basophils (%) (Auto) 0.4 % Neutrophils # (Auto) 2.00 K/uL Lymphocytes # (Auto) 2.13 K/uL Monocytes # (Auto) 0.56 K/uL Eosinophils # (Auto) 0.29 K/uL Basophils # (Auto) 0.02 K/uL RDW Standard Deviation 38.2 fL RDW Coefficient of Variation 12.3 % Immature Granulocyte % (Auto) 0.2 % Immature Granulocyte # (Auto) 0.01 K/uL Prothrombin Time 10.3 SECONDS Prothromb Time International Ratio 1.0 Activated Partial Thromboplast Time 28.5 SECONDS Partial Thromboplastin Ratio 1.1 Sodium Level 126 mmol/L Potassium Level 3.5 mmol/L Chloride Level 93 mmol/L Carbon Dioxide Level 27 mmol/L Anion Gap 6.0 mmol/L Blood Urea Nitrogen 7 mg/dl Creatinine 0.75 mg/dl Est Creatinine Clear Calc Drug Dose 83.3 ml/min Estimated GFR () 100.4 Estimated GFR (Non- 86.6 BUN/Creatinine Ratio 9.9 Random Glucose 106 mg/dl Osmolality 265 mOsm/kg Lactic Acid Level 1.4 mmol/L Calcium Level 8.9 mg/dl Total Bilirubin 0.3 mg/dl Aspartate Amino Transf (AST/SGOT) 24 U/L Alanine Aminotransferase (ALT/SGPT) 26 U/L Alkaline Phosphatase 65 U/L Troponin I < 0.015 ng/ml < 0.015 ng/ml Total Protein 7.0 gm/dl Albumin 3.6 gm/dl Globulin 3.4 gm/dl Albumin/Globulin Ratio 1.1 Lipase 120 U/L Urine Color YELLOW Urine Appearance CLEAR Urine pH 8.0 Urine Specific [place]on 1.015 Urine Protein NEG Urine Glucose (UA) NEG Urine Ketones NEG Urine Occult Blood NEG Urine Nitrite NEG Urine Bilirubin NEG Urine Urobilinogen NEG Urine Leukocyte Esterase NEG Test 07/06/17 18:29 07/06/17 20:20 07/07/17 05:31 07/07/17 06:40 White Blood Count 4.75 K/uL 4.80 K/uL Red Blood Count 3.57 M/uL 3.51 M/uL Hemoglobin 11.2 g/dL 10.9 g/dL Hematocrit 30.4 % 30.1 % Mean Corpuscular Volume 85.2 fL 85.8 fL Mean Corpuscular Hemoglobin 31.4 pg 31.1 pg Mean Corpuscular Hemoglobin Concent 36.8 g/dl 36.2 g/dl RDW Standard Deviation 38.3 fL RDW Coefficient of Variation 12.3 % Platelet Count 230 K/uL 232 K/uL Mean Platelet Volume 9.8 fL Sodium Level 125 mmol/L 125 mmol/L Potassium Level 3.8 mmol/L 4.3 mmol/L Chloride Level 92 mmol/L 92 mmol/L Carbon Dioxide Level 27 mmol/L 30 mmol/L Anion Gap 6.0 mmol/L 3.0 mmol/L Blood Urea Nitrogen 6 mg/dl 9 mg/dl Creatinine 0.71 mg/dl 0.87 mg/dl Est Creatinine Clear Calc Drug Dose 83.5 ml/min 68.1 ml/min Estimated GFR () 102.7 94.5 Estimated GFR (Non- 88.6 81.5 BUN/Creatinine Ratio 8.4 10.8 Random Glucose 109 mg/dl 99 mg/dl Uric Acid 1.1 mg/dl Calcium Level 9.0 mg/dl 9.1 mg/dl Thyroid Stimulating Hormone (TSH) 1.760 uIu/ml Random Cortisol 8.22 mcg/dl Urine Osmolality 369 mOms/kg Urine Random Sodium 122 mEq/L Magnesium Level 2.1 mg/dl Assessment and Plan Mr. Siddiqui is an 81 y/o male with PMHx of BPH, HLD, HTN, Diverticulosis, Chronic Constipation, and S/P Cholecystectomy (06/25) who presents to the ED c/o generalized weakness and loss of appetite. Hyponatremia: SIADH - Has had multiple testing that dose not support adrenal insufficiency; MRI combo - pituitary ademona suggested will discuss with endocrinology - There is evidence of pulmonary nodules on CT will need pulmonary nodule clinic follow up - Serum Osm low;low urine osm and pending random Na, still consider fluid restriction as helping this - normal random cortisol, TSH, uric acid - Fluid restrict at 1500 cc and continue salt tablets and will increase to BID HTN: - Amlodipine 5 mg daily DVT Prophylaxis: Heparin Code Status: FULL RESUSCITATION - PT/OT evaluations -
[2017-07-07 12:48] VITALS: Ht 182.9 cm; Wt 71.1 kg
[2017-07-07] MEDS: SODIUM CHLORIDE 0.9% 1000ML 1,000 ML IV SCH ×2 (13:35→22:44)
[2017-07-07] MEDS: SODIUM CHLORIDE 1 GM TAB PO SCH ×2 (13:35→20:54)
[2017-07-07 15:09] VITALS: BP 118/71; PULSE 61; TEMP 36.5; O2SAT 97
[2017-07-07] MEDS: AMLODIPINE BESYLATE 5 MG TAB PO SCH (20:55)
[2017-07-07 21:57] VITALS: BP 146/67; PULSE 69; TEMP 36.4; O2SAT 96
[2017-07-08 05:59] LABS: HEMATOCRIT 27.8 % (42-52); HEMOGLOBIN 10.1 g/dL (14.0-18.0); MEAN CELL VOLUME 85.5 fL (80-100); MEAN CORPUSCULAR HEMOGLOBIN 31.1 pg (25-34); MEAN CORPUSCULAR HGB CONC 36.3 g/dl (32-36); MEAN PLATELET VOLUME 9.9 fL (7.4-10.4); PLATELET COUNT 212 K/uL (130-400); RED CELL DISTRIBUTION WIDTH CV 12.4 % (11.5-14.5); RED CELL DISTRIBUTION WIDTH SD 38.6 fL (36.4-46.3); WHITE BLOOD COUNT 4.84 K/uL (4.8-10.8)
[2017-07-08 06:28] LABS: CALCIUM 8.4 mg/dl (8.5-10.1); CREATININE 0.74 mg/dl (0.60-1.40); POTASSIUM 4.3 mmol/L (3.5-5.1)
[2017-07-08 07:36] VITALS: BP 136/72; PULSE 63; TEMP 36.4; O2SAT 98
[2017-07-08 08:00] VITALS: O2SAT 98
[2017-07-08] MEDS: SODIUM CHLORIDE 1 GM TAB PO SCH ×2 (08:49→20:37)
[2017-07-08] MEDS: PANTOprazole SOD 40 MG TAB PO SCH ×2 (08:49→20:36)
[2017-07-08] MEDS: BOOST VANILLA PO SCH ×2 (08:49→20:36)
[2017-07-08] MEDS: BIMATOPROST 0.01% OP SOLN 2.5 ML BTL OP SCH (08:49)
[2017-07-08] MEDS: SODIUM CHLORIDE 0.9% 1000ML 1,000 ML IV SCH ×2 (08:50→19:17)
[2017-07-08] MEDS: HEPARIN SOD 5000 UNIT/0.5 ML CARP SQ SCH ×2 (08:50→20:37)
[2017-07-08 14:29] VITALS: BP 137/69; PULSE 57; TEMP 36.5; O2SAT 99
--- NOTE | 2017-07-08 14:46 | Progress Note ---
Subjective Date of Service: Jul 08, 2017. Subjective pt states he feels better, he has no headaches or visual changes, he asked I call his son Christiano which I did. Problem List Medical Problems: (1) Epigastric pain Status: Acute (2) Nonspecific abdominal pain Status: Acute Review of Systems Constitutional: + weakness, + fatigue, No fever, No chills Eyes: No worsening of vision, No eye pain Respiratory: No cough, No shortness of breath, No dyspnea on exertion Cardiac: No chest pain, No edema Abdomen: No pain, No nausea, No vomiting, No diarrhea Male : No dysuria, No incontinence Neurologic: No memory loss, No weakness Psychiatric: No depression symptoms, No anhedonism Objective Vital Signs Date Time Temp Pulse Resp B/P (MAP) Pulse Ox O2 Delivery O2 Flow Rate FiO2 07/08/17 14:29 36.5 57 18 137/69 (91) 99 Room Air 07/08/17 08:00 98 Room Air 07/08/17 07:36 36.4 63 18 136/72 (93) 98 Room Air 07/08/17 00:00 Room Air 07/07/17 21:57 36.4 69 18 146/67 (93) 96 Room Air 07/07/17 16:10 Room Air 07/07/17 15:09 36.5 61 16 118/71 (87) 97 Room Air Physical Exam General Appearance: WD/WN, + mild distress Eyes: normal inspection, sclerae normal Neck: supple, no JVD Respiratory/Chest: chest non-tender, lungs clear, normal breath sounds Cardiovascular: regular rate, rhythm, no murmur Abdomen: normal bowel sounds, non tender, soft Extremities: no pedal edema, no calf tenderness Neurologic/Psychiatric: alert, oriented x 3 Skin: normal color, warm/dry, no rash Laboratory Results Last 24 Hours Test 07/08/17 05:42 White Blood Count 4.84 K/uL Red Blood Count 3.25 M/uL Hemoglobin 10.1 g/dL Hematocrit 27.8 % Mean Corpuscular Volume 85.5 fL Mean Corpuscular Hemoglobin 31.1 pg Mean Corpuscular Hemoglobin Concent 36.3 g/dl RDW Standard Deviation 38.6 fL RDW Coefficient of Variation 12.4 % Platelet Count 212 K/uL Mean Platelet Volume 9.9 fL Sodium Level 129 mmol/L Potassium Level 4.3 mmol/L Chloride Level 98 mmol/L Carbon Dioxide Level 25 mmol/L Anion Gap 6.0 mmol/L Blood Urea Nitrogen 9 mg/dl Creatinine 0.74 mg/dl Est Creatinine Clear Calc Drug Dose 80.1 ml/min Estimated GFR () 101.0 Estimated GFR (Non- 87.1 BUN/Creatinine Ratio 11.8 Random Glucose 88 mg/dl Calcium Level 8.4 mg/dl Magnesium Level 2.0 mg/dl Assessment and Plan Mr. Siddiqui is an 81 y/o male with PMHx of BPH, HLD, HTN, Diverticulosis, Chronic Constipation, and S/P Cholecystectomy (06/25) who presents to the ED c/o generalized weakness and loss of appetite. 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, no suggestion of glucocorticoid deficiency, will recheck in am 07/09 - Has had multiple testing that dose not support adrenal insufficiency; MRI combo - pituitary ademona suggested will discuss with endocrinology - There is evidence of pulmonary nodules on CT will need pulmonary nodule clinic follow up - Serum Osm low;low urine osm and pending random Na, still consider fluid restriction as helping this - normal random cortisol, TSH, uric acid - Fluid restrict at 1500 cc and continue salt tablets BID -will discuss case with endocrinology 07/09 HTN: - Amlodipine 5 mg daily DVT Prophylaxis: Heparin Code Status: FULL RESUSCITATION - PT/OT evaluations - spoke to chichi evangelista today
[2017-07-08] MEDS: AMLODIPINE BESYLATE 5 MG TAB PO SCH (20:37)
[2017-07-08 22:42] VITALS: BP 143/72; PULSE 72; TEMP 36.6; O2SAT 97
[2017-07-09] MEDS: SODIUM CHLORIDE 0.9% 1000ML 1,000 ML IV SCH ×2 (05:18→14:44)
[2017-07-09] MEDS: HEPARIN SOD 5000 UNIT/0.5 ML CARP SQ SCH ×2 (07:16→20:55)
[2017-07-09] MEDS: BIMATOPROST 0.01% OP SOLN 2.5 ML BTL OP SCH (07:25)
[2017-07-09] MEDS: BOOST VANILLA PO SCH ×2 (07:25→20:54)
[2017-07-09] MEDS: PANTOprazole SOD 40 MG TAB PO SCH ×2 (07:25→20:55)
[2017-07-09] MEDS: SODIUM CHLORIDE 1 GM TAB PO SCH ×2 (07:25→20:55)
[2017-07-09 07:48] VITALS: BP 130/72; PULSE 62; TEMP 36.4; O2SAT 99
[2017-07-09 07:48] LABS: HEMATOCRIT 28.6 % (42-52); HEMOGLOBIN 10.4 g/dL (14.0-18.0); MEAN CELL VOLUME 84.4 fL (80-100); MEAN CORPUSCULAR HEMOGLOBIN 30.7 pg (25-34); MEAN CORPUSCULAR HGB CONC 36.4 g/dl (32-36); MEAN PLATELET VOLUME 9.8 fL (7.4-10.4); PLATELET COUNT 217 K/uL (130-400); RED CELL DISTRIBUTION WIDTH CV 12.4 % (11.5-14.5); RED CELL DISTRIBUTION WIDTH SD 38.3 fL (36.4-46.3); WHITE BLOOD COUNT 4.38 K/uL (4.8-10.8)
[2017-07-09 08:00] VITALS: O2SAT 99
[2017-07-09 08:19] VITALS: O2SAT 99
[2017-07-09 08:19] LABS: CALCIUM 8.6 mg/dl (8.5-10.1); CREATININE 0.65 mg/dl (0.60-1.40); POTASSIUM 3.6 mmol/L (3.5-5.1)
[2017-07-09 16:00] VITALS: BP 151/70; PULSE 67; TEMP 36.4; O2SAT 97
--- NOTE | 2017-07-09 18:43 | Progress Note ---
Subjective Date of Service: Jul 09, 2017. 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 as an outpatient he's having no new problems or complaints no headaches or visual changes Problem List Medical Problems: (1) Epigastric pain Status: Acute (2) Nonspecific abdominal pain Status: Acute Review of Systems Constitutional: No fever, No chills, No weakness Eyes: No worsening of vision, No eye pain Respiratory: No cough, No shortness of breath, No dyspnea on exertion Cardiac: No chest pain, No PND, No edema Abdomen: No pain, No nausea, No vomiting, No diarrhea Musculoskeletal: No joint pain, No muscle pain Objective Vital Signs Date Time Temp Pulse Resp B/P (MAP) Pulse Ox O2 Delivery O2 Flow Rate FiO2 07/09/17 16:20 Room Air 07/09/17 16:00 36.4 67 18 151/70 (97) 97 Room Air 07/09/17 08:19 99 Room Air 07/09/17 08:00 99 Room Air 07/09/17 07:48 36.4 62 14 130/72 (91) 99 Room Air 07/09/17 00:00 Room Air 07/08/17 22:42 36.6 72 16 143/72 (95) 97 Room Air Physical Exam General Appearance: WD/WN, no apparent distress Eyes: normal inspection, PERRL, EOMI, sclerae normal ENT: hearing grossly normal, pharynx normal Respiratory/Chest: chest non-tender, lungs clear, normal breath sounds Cardiovascular: regular rate, rhythm, no murmur Abdomen: normal bowel sounds, non tender, soft Neurologic/Psychiatric: alert, oriented x 3 Laboratory Results Last 24 Hours Test 07/09/17 07:04 White Blood Count 4.38 K/uL Red Blood Count 3.39 M/uL Hemoglobin 10.4 g/dL Hematocrit 28.6 % Mean Corpuscular Volume 84.4 fL Mean Corpuscular Hemoglobin 30.7 pg Mean Corpuscular Hemoglobin Concent 36.4 g/dl RDW Standard Deviation 38.3 fL RDW Coefficient of Variation 12.4 % Platelet Count 217 K/uL Mean Platelet Volume 9.8 fL Sodium Level 132 mmol/L Potassium Level 3.6 mmol/L Chloride Level 99 mmol/L Carbon Dioxide Level 24 mmol/L Anion Gap 9.0 mmol/L Blood Urea Nitrogen 6 mg/dl Creatinine 0.65 mg/dl Est Creatinine Clear Calc Drug Dose 91.2 ml/min Estimated GFR () 106.5 Estimated GFR (Non- 91.9 BUN/Creatinine Ratio 9.7 Random Glucose 100 mg/dl Calcium Level 8.6 mg/dl Magnesium Level 1.9 mg/dl Cortisol AM Sample 11.69 mcg/dl Assessment and Plan Mr. Siddiqui is an 81 y/o male with PMHx of BPH, HLD, HTN, Diverticulosis, Chronic Constipation, and S/P Cholecystectomy (06/25) who presents to the ED c/o generalized weakness and loss of appetite. 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, no suggestion of glucocorticoid deficiency patient also has no headache or visual changes - Has had multiple testing that dose not support adrenal insufficiency; MRI combo - pituitary ademona suggested will discuss with endocrinology - There is evidence of pulmonary nodules on CT will need pulmonary nodule clinic follow up - Serum Osm low;low urine osm and significantly elevated urine random Na, - normal random cortisol, TSH, uric acid - Fluid restrict at 1500 cc and continue salt tablets BID Did discuss case with endocrinology 07/09 feels we have done a good workup and will follow up as an outpatient we'll hold his IV fluid on 07/09 and if his sodium is stable no morning and 07/10 the patient will likely return home HTN: Has remained stable - Amlodipine 5 mg daily DVT Prophylaxis: Heparin although ambulate well and hallway Code Status: FULL RESUSCITATION - PT/OT evaluations - spoke to son otnja today
[2017-07-09] MEDS: AMLODIPINE BESYLATE 5 MG TAB PO SCH (20:55)
[2017-07-10 01:28] VITALS: BP 125/66; PULSE 67; TEMP 36.5; O2SAT 98
[2017-07-10] MEDS: HEPARIN SOD 5000 UNIT/0.5 ML CARP SQ SCH (07:17)
--- NOTE | 2017-07-10 07:53 | Surgery Progress Note ---
Surgery Progress Note Date of Service Jul 10, 2017. Subjective pt about 2 weeks s/p lap mitra- has sutures in place Objective Vital Signs: Date Time Temp Pulse Resp B/P (MAP) Pulse Ox O2 Delivery O2 Flow Rate FiO2 07/10/17 01:28 36.5 67 20 125/66 (85) 98 Room Air 07/09/17 23:50 Room Air 07/09/17 16:20 Room Air 07/09/17 16:00 36.4 67 18 151/70 (97) 97 Room Air 07/09/17 08:19 99 Room Air 07/09/17 08:00 99 Room Air Incision(s): clean, dry, intact (2 sutures at umbilical incision) Assessment & Plan 07/10/17- will ask nurses to remove sutures- office follow up as needed.
[2017-07-10 08:00] VITALS: BP 143/72; PULSE 62; TEMP 36.4; O2SAT 100; O2SAT 99
[2017-07-10] MEDS: SODIUM CHLORIDE 1 GM TAB PO SCH (08:26)
[2017-07-10] MEDS: PANTOprazole SOD 40 MG TAB PO SCH (08:26)
[2017-07-10] MEDS: BIMATOPROST 0.01% OP SOLN 2.5 ML BTL OP SCH (08:26)
[2017-07-10] MEDS: BOOST VANILLA PO SCH (08:26)
[2017-07-10 09:29] LABS: CALCIUM 8.9 mg/dl (8.5-10.1); CREATININE 0.72 mg/dl (0.60-1.40); POTASSIUM 3.7 mmol/L (3.5-5.1)
[2017-07-10] MEDS ORDERED: SDMC1 PO (10:05)
--- NOTE | 2017-07-10 10:08 | Discharge Instructions ---
Discharge Instructions Date of Service Jul 10, 2017. Admission Reason for Admission: Hyponatremia Discharge Discharge Diagnosis / Problem: low sodium, pituitary adenoma Discharge Goals Goal(s): Diagnostic testing, Therapeutic intervention Activity Recommendations Activity Limitations: as noted below Lifting Limitations: gradually increase as tolerated Please limit total daily fluids, only drink when thirsty, drink liquids other than water have lab check on sunday07/13/17 . Current Hospital Diet Patient's current hospital diet: Low Fat Diet Discharge Diet Recommended Diet: Regular Diet Pending Studies Studies pending at discharge: no Medical Emergencies . Who to Call and When: Medical Emergencies: If at any time you feel your situation is an emergency, please call 911 immediately. . Non-Emergent Contact Non-Emergency issues call your: Primary Care Provider, Specialist ( ground wirer) Call Non-Emergent contact if: temperature is above 101, your pain is unusual for you . . "Provider Documentation" section prepared by Aubrey Ann. . VTE Core Measure Inpt VTE Proph given/why not?: Unfractionated heparin SQ, SCD's
[2017-07-10 10:22] VITALS: BP 143/72; PULSE 62; TEMP 36.4; O2SAT 100
[2017-07-10 11:24] VITALS: BP 115/72; PULSE 66; TEMP 36.4; O2SAT 100
--- NOTE | 2017-07-10 19:23 | Discharge Summary ---
Discharge Summary Date of Service Jul 10, 2017. Discharge Summary Admission Date: Jul 06, 2017 at 16:34 Discharge Date: Jul 10, 2017 Discharge Disposition: Home Principal Diagnosis: hyponatremia Medication Reconciliation Changed Medications: Sodium Chloride (Sodium Chloride) 1 Gm Tab 1 GM PO BID, #60 DOSE 6 Refills (Changed from: DAILY; Refills: ) Continued Medications: Amlodipine Besylate (Amlodipine Besylate) 5 Mg Tab 5 MG PO QPM for 30 Days, #30 TAB Bimatoprost (Lumigan) 0.01 % Brandy 1 DROPS OP QAM for 30 Days, #450 ML 3 Refills Nutritional Supplements (Boost) 1 Liq Liq 1 DOSE PO BID Ondansetron Hcl (Zofran) 4 Mg Tab 4 MG PO Q6H PRN for Nausea or Vomiting, TAB Pantoprazole (Protonix) 40 Mg Tab 40 MG PO BID, #30 TAB Discontinued Medications: Ciprofloxacin/Dexamethasone (Ciprodex 0.3-0.1 %) 112 Drops/7.5 Ml Susp 4 DROPS OT BID PRN for UNDECIDED for 5 Days, #1 BTL USES PRN FOR HEAVY WAX IN EARS Discharge Exam Review of Systems: Constitutional: No fever, No chills Abdomen: No pain, No nausea Neurologic: No memory loss, No paralysis Physical Exam: General Appearance: WD/WN, no apparent distress Eyes: normal inspection, sclerae normal Neurologic/Psychiatric: alert, oriented x 3 Hospital Course Mr. Siddiqui is an 81 y/o male with PMHx of BPH, HLD, HTN, Diverticulosis, Chronic Constipation, and S/P Cholecystectomy (06/25) who presents to the ED c/o generalized weakness and loss of appetite. 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, no suggestion of glucocorticoid deficiency patient also has no headache or visual changes - Has had multiple testing that dose not support adrenal insufficiency; MRI combo - pituitary ademona suggested will discuss with endocrinology - There is evidence of pulmonary nodules on CT will need pulmonary nodule clinic follow up - Serum Osm low;low urine osm and significantly elevated urine random Na, - normal random cortisol, TSH, uric acid - Fluid restrict at 1500 cc and continue salt tablets BID, he has had stable sodium after cessation of ivf, will recheck labs in a few days Did discuss case with endocrinology 07/09 feels we have done a good workup and will follow up as an outpatient I personally contacted his pcp and gave report HTN: Has remained stable - Amlodipine 5 mg daily Code Status: FULL RESUSCITATION Total Time Spent: Greater than 30 minutes This includes examination of the patient, discharge planning, medication reconciliation, and communication with other providers. Discharge Instructions Please refer to the electronic Patient Visit Report (Discharge Instructions) for additional information.
== END 2017-07-10 12:47 | disposition home or self-care (01) | DRG 645 ==
LOC: C.EDB 10:23 → C.4E 16:34 → ENRESERV 17:03
PROVIDERS: ADMIT Internal Medicine; ATTEND Internal Medicine
DX: E22.2 Syndrome of inappropriate secretion of antidiuretic hormone (principal); K59.00 Constipation, unspecified; N40.0 Benign prostatic hyperplasia without lower urinary tract symptoms; K57.90 Diverticulosis of intestine, part unspecified, without perforation or abscess without bleeding; I10 Essential (primary) hypertension; E78.5 Hyperlipidemia, unspecified; D35.2 Benign neoplasm of pituitary gland; Z82.49 Family history of ischemic heart disease and other diseases of the circulatory system; Z88.8 Allergy status to other drugs, medicaments and biological substances

== ENCOUNTER → 2017-07-16 | Outpatient (CLI) | payer OTHER ==
[~2017-07-16] MED LIST changes: +BIMA0.01 OP; -HYDR-5688 PO; +NUTR-7 PO; +SDMC1 PO; -SODIUM CHLORIDE PO
[2017-07-16 18:02] LABS: BLOOD UREA NITROGEN 19 mg/dl (7-18); CALCIUM 9.1 mg/dl (8.5-10.1); CARBON DIOXIDE 29 mmol/L (21-32); CREATININE 0.82 mg/dl (0.60-1.40); GLUCOSE 88 mg/dl (70-99); POTASSIUM 3.8 mmol/L (3.5-5.1); SODIUM 138 mmol/L (136-145)
== END | disposition home or self-care (01) ==
LOC: C.LABBFT 15:42
PROVIDERS: ATTEND Internal Medicine
DX: E87.1 Hypo-osmolality and hyponatremia (principal)

== ENCOUNTER → 2017-07-23 | Outpatient (CLI) | payer OTHER ==
[2017-07-23 18:43] LABS: BLOOD UREA NITROGEN 19 mg/dl (7-18); CALCIUM 8.8 mg/dl (8.5-10.1); CARBON DIOXIDE 29 mmol/L (21-32); CREATININE 0.74 mg/dl (0.60-1.40); GLUCOSE 100 mg/dl (70-99); POTASSIUM 4.5 mmol/L (3.5-5.1); SODIUM 137 mmol/L (136-145)
== END | disposition home or self-care (01) ==
LOC: C.LABBFT 15:32
PROVIDERS: ATTEND Internal Medicine
DX: E87.1 Hypo-osmolality and hyponatremia (principal)

== ENCOUNTER → 2017-08-08 | Outpatient (CLI) | payer OTHER ==
[2017-08-08 12:43] LABS: FOLLICLE STIMULAT HORMONE 0.83 IU/L; LUTEINIZING HORMONE 0.07 IU/L; PROLACTIN 29.37 ng/mL
[2017-08-08 12:44] LABS: BLOOD UREA NITROGEN 17 mg/dl (7-18); CALCIUM 9.3 mg/dl (8.5-10.1); CARBON DIOXIDE 27 mmol/L (21-32); CREATININE 0.76 mg/dl (0.60-1.40); GLUCOSE 94 mg/dl (70-99); SODIUM 138 mmol/L (136-145)
== END | disposition home or self-care (01) ==
LOC: C.LABBFT 09:17
PROVIDERS: ATTEND Internal Medicine Endocrinology, Diabetes & Metabolism
DX: E87.1 Hypo-osmolality and hyponatremia (principal); D35.2 Benign neoplasm of pituitary gland

== ENCOUNTER → 2017-09-25 | Outpatient (CLI) | payer OTHER ==
[~2017-09-25] MED LIST changes: +AMLO-110 PO; +DOXY100C76 PO; +LEVO50TA6 PO; -NRV5 PO; -SDMC1 PO
[2017-09-25 12:44] LABS: BLOOD UREA NITROGEN 18 mg/dl (7-18); CALCIUM 8.7 mg/dl (8.5-10.1); CARBON DIOXIDE 28 mmol/L (21-32); CREATININE 0.74 mg/dl (0.60-1.40); GLUCOSE 100 mg/dl (70-99); POTASSIUM 3.7 mmol/L (3.5-5.1); SODIUM 139 mmol/L (136-145)
== END | disposition home or self-care (01) ==
LOC: C.LABBFT 10:33
PROVIDERS: ATTEND Internal Medicine Endocrinology, Diabetes & Metabolism
DX: E87.1 Hypo-osmolality and hyponatremia (principal); D35.2 Benign neoplasm of pituitary gland

== ENCOUNTER → 2017-12-19 | Outpatient (CLI) | payer OTHER ==
[~2017-12-19] MED LIST changes: -AMLO-110 PO; +AMLO5TAB3 PO
[2017-12-19 14:51] LABS: BLOOD UREA NITROGEN 21 mg/dl (7-18); CALCIUM 9.1 mg/dl (8.5-10.1); CARBON DIOXIDE 28 mmol/L (21-32); CREATININE 0.88 mg/dl (0.60-1.40); GLUCOSE 110 mg/dl (70-99); POTASSIUM 4.2 mmol/L (3.5-5.1); SODIUM 139 mmol/L (136-145)
== END | disposition home or self-care (01) ==
LOC: C.LAB1850 13:26
PROVIDERS: ATTEND Internal Medicine Endocrinology, Diabetes & Metabolism
DX: E87.1 Hypo-osmolality and hyponatremia (principal); E03.8 Other specified hypothyroidism

== ENCOUNTER → 2018-01-09 | Outpatient (CLI) | payer OTHER ==
--- NOTE | 2018-01-09 12:22 | DIAGNOSTIC IMAGING REPORT ---
(CHEST) THORAX WITHOUT CLINICAL HISTORY: 82 years-old Male presenting with R91.8 Multiple pulmonary nodules. TECHNIQUE: Multidetector CT imaging of the chest was performed without the use of intravenous contrast. IV contrast: None. A dose lowering technique was used consistent with the principles of ALARA (as low as reasonably achievable). COMPARISON: CTA chest from 07/06/2017. CT DOSE (mGy.cm): The estimated cumulative dose is 353.65 mGycm. 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 On soft tissue windows, subcentimeter hypodense nodule in the right lobe of the thyroid. Prominent though benign-appearing subcentimeter mediastinal lymph nodes these are unchanged from prior. Evaluation of the josé miguel limited in the absence of intravenous contrast. Atherosclerosis of the aorta. Normal heart size. Coronary artery calcification. No pericardial or pleural effusion. Cholecystectomy clips. On lung windows, multiple bilateral pulmonary nodules, some of which demonstrate internal punctate calcification. These are unchanged in size and configuration. These measure up to 5 mm. Some solid nodules are fissural or subpleural with a triangular or polygonal morphology suggesting a benign entity such as unencapsulated pulmonary lymphoid tissue. Other nodules appear associated with pleural parenchymal scarring at the apices. Nodules have been marked on images. No new nodule. No pneumothorax. On bone windows, degenerative changes of the spine. IMPRESSION: 1. Multiple stable solid bilateral pulmonary nodules measuring up to 5 mm. Follow-up per Darren Society 2017 recommendations below with an initial start date of follow-up 07/06/2017. Please refer to below summary of Fleischner Society 2017 recommendations for follow-up of incidental CT nodules (H Mariaelena et al. Guidelines for management of incidental pulmonary nodules detected on CT images: From the Fleischner Society 2017. Radiology 2017; 284: 228-243.) SOLID NODULES Single nodule; size < 6 mm * Low risk patients: No routine follow-up * High risk patients: Optional CT at 12 months Single nodule; size 6-8 mm * Low risk patients: CT at 6-12 months, then consider CT at 18-24 months * High risk patients: CT at 6-12 months, then at 18-24 months Single nodule; size > 8 mm * Either low or high risk patients: Considered CT at 3 months, PET/CT, or tissue sampling Multiple nodules; size < 6 mm * Low risk patients: No routine follow up * High risk patients: Optional CT at 12 months Multiple nodules; size 6-8 mm * Low risk patients: CT at 3-6 months, then consider CT at 18-24 months * High risk patients: CT at 3-6 months, then at 18-24 months Multiple nodules; size > 8 mm * Low risk patients: CT at 3-6 months, then consider at 18-24 months * High risk patients: CT at 3-6 months, then at 18-24 months SUBSOLID NODULES Single ground-glass nodule * Nodule size < 6 mm: No routine follow-up * Nodule size > or = 6 mm: CT at 6-12 months to confirm persistence, then CT every 2 years until 5 years Single part-solid nodule * Nodule size < 6 mm: No routine follow-up * Nodules size > or = 6 mm: CT at 3-6 months to confirm persistence. If unchanged and solid component remains < 6 mm, annual CT should be performed for 5 years Multiple nodules * Nodule size < 6 mm: CT at 3-6 months. If stable, consider CT at 2 and 4 years. * Nodules size > or = 6 mm: CT at 3-6 months. Subsequent management based on the most suspicious nodule(s) NOTE: 1) These guidelines apply to incidental nodules. These guidelines do NOT apply to patients younger than 35 years, immunocompromised patients, or patients with cancer. 2) Risk categories: * Low risk patients: Minimal or absent history of smoking and/or other known risk factors * High risk patients: History of smoking, exposure to other carcinogens, emphysema, fibrosis, upper lobe location, family history of lung cancer, etc. 3) If a nodule up to 8 mm is partly solid or is ground glass, further follow-up is required after 24 months to exclude possible slow growing adenocarcinoma. Electronically signed by: Orestes Huber M.D. 01/09/2018 12:20 PM Dictated Date/Time: 01/09/2018 12:09 PM
== END | disposition home or self-care (01) ==
LOC: C.CTS 11:27
PROVIDERS: ATTEND Internal Medicine
DX: R91.8 Other nonspecific abnormal finding of lung field (principal)

== ENCOUNTER 2025-01-25 16:46 | Observation (INO) ==
--- NOTE | 2025-01-25 17:01 | Emergency Department Note ---
Impression & Plan Tachycardia, Dizziness ED Provider Note HISTORY OF PRESENT ILLNESS: Patient is an 89-year-old male presenting with tachycardia. Patient reports for the last week he has noticed his heart has felt that its been racing. He reports that he has also had notably high blood pressures at home. reports that "he has just been stubborn and otherwise would have been here earlier." Patient reportedly has felt lightheaded and dizzy like he is going to pass out in the last week. He is not on any anticoagulation or antiplatelet therapies. Denies any DVT or PE history. Denies any history of cardiac stents. He denies any chest pain with the tachycardia, but does report some intermittent shortness of breath. He denies any recent fevers. Denies any cough, nausea or vomiting. Denies any abdominal pain. Denies any recent sick contact exposures or recent travel. ROS: as above PHYSICAL EXAM: Constitutional: Patient appears in no acute distress. HENT: Head: Normocephalic and atraumatic. Eyes: EOMI, PERRL Mouth/Throat: Mucous membranes moist. Neck: Trachea midline. Neck supple. Cardiovascular: Tachycardic with regular rhythm. No murmurs, rubs or gallops. Intact distal pulses. Pulmonary/Chest: No respiratory distress. Breath sounds clear and equal bilaterally. No wheezes or rales. Abdominal: Abdomen soft, no tenderness, rebound or guarding. Musculoskeletal: No edema, tenderness or deformity noted. Skin: Warm and dry. No rash, erythema, pallor or cyanosis Psychiatric: Appropriate mood and affect for situation. Neurological: Alert and keenly responsive. CN II-XII grossly intact, moving all extremities equally and fully. MDM: - Vitals signs showed hypertension and tachycardia - History obtained via patient. History as above. - Chronic conditions affecting care: pituitary adenoma (s/p resection); BPH; HTN; adrenal insufficiency; hypothyroidism; panhypopituitarism - Differential diagnoses include, but are not limited to: ACS; dysrhythmia; electrolyte abnormality; pneumonia; UTI; PE; pulmonary edema; thyroid abnormality - Order placed for continuous cardiac monitoring. At this time, monitor showed rate of 144 bpm with normal sinus rhythm, per my interpretation. - External medical records reviewed. Primary care visit note dated 12/17/2024 was reviewed. Patient was seen for 6-month follow-up for his chronic medical problems. He follows with ENT at [facility] for his chronic sinusitis. 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 - EKG image interpreted by myself showed normal sinus rhythm. Rate tachycardic at 144 bpm. QT 258. No acute ischemic changes. - Patient given 5 mg IV lopressor and heart rate improved from 150s to 130 bpm region. He was persistently 130 to 135 bpm. He was given additional 5 mg IV Lopressor with minimal improvement heart rate. - Laboratory workup interpreted by myself showed slight leukocytosis (WBC 12.48); normal PT/INR; stable electrolytes; normal troponin; normal AST/ALT; normal lipase; normal TSH - UA negative for infection - CXR image reviewed interpreted by myself is negative for pneumonia, per my interpretation. - Patient given 500 cc NS with minimal improvement in HR. - CT PE obtained to rule out PE. Per my interpretation, no obvious saddle PE. - Patient given 500 cc NS. - Given a third dose of 5 mg IV lopressor with no improvement in the patient's heart rate. Still persistently 134 to 135 bpm. Repeat EKG obtained 19:18 was interpreted by myself and showed that appears to be an atrial tachycardia. Rate 132 bpm. QT 272. No acute ischemic changes. - Given patient's persistent HR of 135 bpm, concern for possible atrial flutter. Patient has not had a recent echo and continues to be tachycardic. Will admit to hospitalist service for further evaluation and management. - Discussion was had with showcase maker about patient's case and need for admission - Hospitalist consulted for admission - Patient admitted to [facility] hospitalist service for further evaluation and management. I have personally spent 61 minutes of critical care time in the direct management of this patient. This includes bedside care, interpretation of diagnostic studies, and testing, discussion with consultants, patient, and family members, and other required patient management activities. This 61 minutes is in excess of all separately billable procedures. 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) Erectile dysfunction (Chronic) BPH (benign prostatic hyperplasia) (Chronic) Allergic rhinitis (Chronic) Hypertension (Chronic) Medical History Pituitary adenoma Surgical History History of mastoidectomy History of cataract surgery Trigger finger History of esophagogastroduodenoscopy (EGD) History of colonoscopy History of herniorrhaphy History of cholecystectomy History of tooth extraction History of tonsillectomy History of adenoidectomy Family History Brother Hypertension Coronary artery stenosis Gallbladder disease Mother Hypertension Gallbladder disease Sister Heart disease Father Cancer Denies family history of Ovarian cancer Prostate cancer Myocardial infarction Breast cancer Colorectal cancer Social History Smoking Status: Never smoker Second Hand Exposure: Yes ( A CHILD); Do You Dip or Chew Tobacco: No; Hx Alcohol Use: No Hx Substance Use: No Preferred Language: Bermudian Communication Ability: Effective Visual Impairment: Limited Hearing Ability: Use of Hearing Aid Public Address Announcer Required: No Beliefs That Will Affect Care: None marital status: Current Living Situation: Spouse current occupational status: retired 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 How many Children do You have: 2 Feels Safe at Home: Yes Childhood Exposure to Second-Hand Smoke: Yes (Father) Diet: regular caffeine: Yes (Coffee/Tea AM) during the past year weight has: remained stable Dental Care, Regularly: Yes Physical Activity Frequency: Daily Seatbelt Use: always Sunscreen Use: No Assistive Devices: Glasses Allergies Allergies Allergy/AdvReac Type Severity Reaction Status Date / Time pollen extracts Allergy Intermediate WHEEZING,STUFFY Verified 01/25/25 18:31 NOSE atorvastatin AdvReac Intermediate MUSCLE Verified 01/25/25 18:31 ACHES, CRAMPING Home Meds Home Medications Medication Instructions Recorded Confirmed fluticasone furoate 27.5 2 spray intranasal DAILY 12/22/22 01/25/25 mcg/actuation nasal spray,suspension (Flonase Sensimist) ascorbic acid (vitamin C) 500 mg 500 mg PO DAILY 01/25/25 01/25/25 tablet (Vitamin C) cholecalciferol (vitamin D3) 25 25 mcg PO DAILY 01/25/25 01/25/25 mcg (1,000 unit) capsule (Vitamin D3) zinc gluconate 50 mg tablet 50 mg PO DAILY 01/25/25 01/25/25 Previous Rx's Medication Instructions Recorded azelastine 137 mcg (0.1 %) nasal 2 spray intranasal BID #30 mL 01/12/23 spray losartan 50 mg tablet 50 mg PO DAILY #90 tabs 02/11/24 levothyroxine 75 mcg tablet 75 mcg PO DAILY #90 tabs 10/24/24 hydrocortisone 10 mg tablet 10 mg PO .COMPLEX #360 tabs 12/15/24 testosterone 2 pump transdermal DAILY #75 grams 01/05/25 hydrocortisone sod succinate 100 100 mg IM DAILY PRN Emergency dose 01/23/25 mg solution for injection #1 ea (Solu-Cortef) Results & Data (ED) Vital Signs Vital Signs - 24 hr 01/25/25 16:46 01/25/25 16:46 01/25/25 16:52 Temperature 36.6 C Temperature Source Temporal Artery Scan Pulse Rate 146 H Pulse Rate [Apical] Respiratory Rate 16 Blood Pressure 157/101 H Blood Pressure [Left Arm] Blood Pressure Mean 119 Blood Pressure Mean [Left Arm] Pulse Oximetry 96 Oxygen Delivery Method Room Air Room Air Sepsis Recent Fever Within 48 Hours No Sepsis New/Unexplained Change in Mental Status N/A Sepsis Action Taken by Nursing No Action Required 01/25/25 17:06 01/25/25 17:06 01/25/25 17:20 Temperature Temperature Source Pulse Rate 144 H 144 H 134 H Pulse Rate [Apical] Respiratory Rate Blood Pressure 155/115 H 139/112 H Blood Pressure [Left Arm] Blood Pressure Mean Blood Pressure Mean [Left Arm] Pulse Oximetry Oxygen Delivery Method Sepsis Recent Fever Within 48 Hours Sepsis New/Unexplained Change in Mental Status Sepsis Action Taken by Nursing 01/25/25 17:36 01/25/25 18:01 01/25/25 18:46 Temperature Temperature Source Pulse Rate 136 H 136 H Pulse Rate [Apical] 135 H Respiratory Rate 18 Blood Pressure 148/112 H 125/100 Blood Pressure [Left Arm] 157/115 H Blood Pressure Mean Blood Pressure Mean [Left Arm] 129 Pulse Oximetry 96 Oxygen Delivery Method Sepsis Recent Fever Within 48 Hours Sepsis New/Unexplained Change in Mental Status Sepsis Action Taken by Nursing 01/25/25 18:59 Temperature Temperature Source Pulse Rate 135 H Pulse Rate [Apical] Respiratory Rate Blood Pressure Blood Pressure [Left Arm] Blood Pressure Mean Blood Pressure Mean [Left Arm] Pulse Oximetry Oxygen Delivery Method Sepsis Recent Fever Within 48 Hours Sepsis New/Unexplained Change in Mental Status Sepsis Action Taken by Nursing Laboratory Data 01/25/25 16:55 01/25/25 16:55 Lab Results 01/25/25 01/25/25 Range/Units 16:55 18:00 WBC 12.48 H (4.8-10.8) K/ul RBC 4.98 (4.70-6.10) M/uL Hgb 15.9 (14.0-18.0) g/dl Hct 44.9 (42.0-52.0) % MCV 90.2 (80.0-100.0) fL MCH 31.9 (25.0-34.0) pg MCHC 35.4 (32.0-36.0) g/dL RDW Std Deviation 42.0 (36.4-46.3) fL RDW Coeff of Jose 12.8 (11.5-14.5) % Plt Count 281 (130-400) K/uL MPV 11.0 (9.4-12.4) fL Immature Gran % (Auto) 0.5 % Neut % (Auto) 65.2 % Lymph % (Auto) 24.4 % Petroleum % (Auto) 7.0 % Eos % (Auto) 2.4 % Baso % (Auto) 0.5 % Neut # (Auto) 8.15 H (1.40-6.50) K/uL Lymph # (Auto) 3.04 (1.20-3.40) K/uL Petroleum # (Auto) 0.87 H (0.11-0.59) K/uL Eos # (Auto) 0.30 (0.00-0.50) K/uL Baso # (Auto) 0.06 (0.00-0.20) K/uL Immature Gran # (Auto) 0.06 (0.01-0.20) K/uL PT 10.4 (9.0-12.0) Seconds INR 1.0 (0.9-1.1) Sodium 138 (136-145) mmol/L Potassium 4.4 (3.5-5.1) mmol/L Chloride 106 (98-107) mmol/L Carbon Dioxide 25 (21-32) mmol/L Anion Gap 7 (3-11) BUN 20 (6-23) mg/dl Creatinine 1.02 (0.6-1.4) mg/dl Est Cr Clr Drug Dosing 54.4 ml/min eGFR 70.69 BUN/Creatinine Ratio 19.6 (10-20) Glucose 119 H (70-99(Fasting)) mg/dl Calcium 9.4 (8.6-10.3) mg/dl Magnesium 2.1 (1.7-2.4) mg/dl Total Bilirubin 0.4 (0.2-1.0) mg/dl AST 29 (13-39) U/L ALT 36 (7-52) U/L Alkaline Phosphatase 72 (34-104) U/L Troponin I High Sens 12.8 (0-20) pg/ml Total Protein 7.3 (6.0-8.3) gm/dl Albumin 3.9 (3.4-5.0) gm/dl Globulin 3.4 (2.5-4.0) gm/dl Albumin/Globulin Ratio 1.1 (0.9-2) Lipase 28 (11-82) U/L TSH 1.045 (0.300-4.500) uIu/ml Urine Color Yellow Urine Appearance Clear (Clear) Urine pH 6.0 (4.5-7.5) Ur Specific [place] 1.010 (1.000-1.030) Urine Protein Negative (Negative) Urine Glucose (UA) Negative (Negative) Urine Ketones Negative (Negative) Urine Blood Negative (Negative) Urine Nitrite Negative (Negative) Urine Bilirubin Negative (Negative) Urine Urobilinogen Negative (Negative) Ur Leukocyte Esterase Negative (Negative) Urine Comment Administered Medications Discontinued Medications Sodium Chloride (Nss) 500 mls @ 999 mls/hr IV .Q31M ONE Stop: 01/25/25 17:30 Last Infusion: 01/25/25 17:42 Dose: Infused Documented By: Admin: 01/25/25 17:05 Dose: 999 mls/hr Documented By: MADYSON Ioversol (Optiray 320 125ml) 119 ml IV ONCE ONE Stop: 01/25/25 18:37 Last Admin: 01/25/25 18:36 Dose: 119 ml Documented By: ODELLK Metoprolol Tartrate (Metoprolol Tartrate 1 Mg/Ml Vial) 5 mg IV NOW STA Stop: 01/25/25 17:01 Last Admin: 01/25/25 17:06 Dose: 5 mg Documented By: LCD Metoprolol Tartrate (Metoprolol Tartrate 1 Mg/Ml Vial) 5 mg IV NOW STA Stop: 01/25/25 17:29 Last Admin: 01/25/25 17:36 Dose: 5 mg Documented By: NIYAD Metoprolol Tartrate (Metoprolol Tartrate 1 Mg/Ml Vial) 5 mg IV NOW STA Stop: 01/25/25 18:53 Last Admin: 01/25/25 18:59 Dose: 5 mg Documented By: MADYSON Imaging Data Radiologist's Impression: Chest X-Ray 01/25/25 16:52 EXAM: Portable AP chest radiograph TECHNIQUE: AP portable radiograph of the chest was obtained. INDICATION: Shortness of breath Comparison: Chest radiograph 2018 FINDINGS: LINES and TUBES: None CARDIOVASCULAR: Cardiac silhouette is mildly enlarged in size. LUNGS/PLEURA: No focal consolidation identified. Mild pulmonary vascular congestion and chronic intra lung changes. No significant pleural fluid. No discernible pneumothorax. OSSEOUS/OTHER: No displaced acute osseous process identified. IMPRESSION: Mild congestive changes of the cardiovascular system. Electronically signed by Wilmer Mcneill 01-25-2025 7:24 PM Discharge Plan Visit Data Chief Complaint: Arrhythmia/Palpitations Stated Complaint: HIGH HEART RATE, BP ED Provider: Donna Babin Discharge Problem: Tachycardia, Dizziness Condition: Fair Forms Stand Alone Forms: [facility] Prescriptions Prescriptions: No Action azelastine 137 mcg (0.1 %) aerosol,spray 2 spray intranasal BID Qty: 30 1RF Rx Instructions: administer into each nostril losartan 50 mg tablet 50 mg PO DAILY Qty: 90 3RF levothyroxine 75 mcg tablet 75 mcg PO DAILY Qty: 90 1RF Rx Instructions: 6m rx needed for PACE hydrocortisone 10 mg tablet 10 mg PO .COMPLEX Qty: 360 1RF Rx Instructions: 10 mg PO Take 2 tablets in the morning and one tablet 8 hours later; may take extra for stress dosing. testosterone 20.25 mg/1.25 gram (1.62 %) gel in metered-dose pump 2 pump TD DAILY Qty: 75 5RF Flonase Sensimist 27.5 mcg/actuation spray,suspension 2 spray intranasal DAILY Rx Instructions: into each nostril hydrocortisone sod succinate [Solu-Cortef] 100 mg recon soln 100 mg IM DAILY PRN (Reason: Emergency dose) Qty: 1 3RF ascorbic acid (vitamin C) [Vitamin C] 500 mg Tablet 500 mg PO DAILY Rx Instructions: PER PT'S SPOUSE "DOESN'T TAKE EVERY DAY". zinc gluconate 50 mg Tablet 50 mg PO DAILY Rx Instructions: PER PT'S SPOUSE "DOESN'T TAKE EVERY DAY". cholecalciferol (vitamin D3) [Vitamin D3] 25 mcg (1,000 unit) Capsule 25 mcg PO DAILY Referrals Referrals: Lilian Morse MD [Primary Care Provider] -
[2025-01-25] MEDS: SODIUM CHLORIDE 0.9% 500 ML IV ONE (17:05)
[2025-01-25] MEDS: METOPROLOL TARTRATE 1 MG/ML VIAL IV STA ×3 (17:06→18:59)
[2025-01-25 17:14] LABS: Hematocrit (blood only) 44.9 % (42.0-52.0); Hemoglobin 15.9 g/dl (14.0-18.0); Immature Granulocytes # (auto) 0.06 K/uL (0.01-0.20); Immature Granulocytes % (auto) 0.5 %; Mean Corpuscular Hemoglobin 31.9 pg (25.0-34.0); Mean Corpuscular Volume 90.2 fL (80.0-100.0); Platelet Count 281 K/uL (130-400); RDW Standard Deviation 42.0 fL (36.4-46.3); Red Blood Count 4.98 M/uL (4.70-6.10); White Blood Count 12.48 K/ul (4.8-10.8)
[2025-01-25 17:32] LABS: Alanine Aminotransferase 36.0 U/L (7-52); Albumin Globulin Ratio 1.1 (0.9-2); Alkaline Phosphatase 72.0 U/L (34-104); Anion Gap 7.0 (3-11); Bilirubin,Total 0.4 mg/dl (0.2-1.0); Blood Urea Nitrogen 20.0 mg/dl (6-23); Calcium 9.4 mg/dl (8.6-10.3); Carbon Dioxide 25.0 mmol/L (21-32); Chloride 106.0 mmol/L (98-107); Creatinine Clr Calc Pharmacy 54.4 ml/min; Globulin 3.4 gm/dl (2.5-4.0); Glucose 119.0 mg/dl (70-99(Fasting)); Lipase 28.0 U/L (11-82); Magnesium 2.1 mg/dl (1.7-2.4); Potassium 4.4 mmol/L (3.5-5.1); Sodium 138.0 mmol/L (136-145); Total Protein 7.3 gm/dl (6.0-8.3)
[2025-01-25 17:40] LABS: INR 1.0 (0.9-1.1); Prothrombin Time 10.4 Seconds (9.0-12.0)
[2025-01-25 17:48] LABS: Thyroid Stimulating Hormone 1.045 uIu/ml (0.300-4.500)
[2025-01-25 18:29] LABS: Appearance Urine Clear (Clear); Glucose Urine UA Negative (Negative)
[2025-01-25] MEDS: OPTIRAY 320 125ml IV ONE (18:36)
--- NOTE | 2025-01-25 19:25 | XRay Report ---
EXAM: Portable AP chest radiograph TECHNIQUE: AP portable radiograph of the chest was obtained. INDICATION: Shortness of breath Comparison: Chest radiograph 2018 FINDINGS: LINES and TUBES: None CARDIOVASCULAR: Cardiac silhouette is mildly enlarged in size. LUNGS/PLEURA: No focal consolidation identified. Mild pulmonary vascular congestion and chronic intra lung changes. No significant pleural fluid. No discernible pneumothorax. OSSEOUS/OTHER: No displaced acute osseous process identified. IMPRESSION: Mild congestive changes of the cardiovascular system. Electronically signed by Wilmer Mcneill 01-25-2025 7:24 PM
[2025-01-25] MEDS: LACTATED RINGER'S 1,000 ML IV SCH (19:58)
--- NOTE | 2025-01-25 20:01 | History & Physical Report ---
Date of Service January 25, 2025 Assessment & Plan (1) Atrial flutter: (2) Tachycardia: (3) Hypertension: (4) Cellulitis of buttock, right: Plan Patient is an 89-year-old male with past history of hypertension and pituitary adenoma s/p pituitary resection on chronic steroid treatment. Patient presented due to 2 to 3 weeks of elevated blood pressure and heart rate on numerous occasions lasted approximately 24 hours. He was found to have a heart rate of 146 and BP 157/101 on arrival. Heart rate trended down to 135 after Lopressor 5 Mg IV x 3 in the ED. EKG showed sinus tachycardia. He is being admitted further workup including heart rate control and echocardiogram. After Cardizem on admission, patient noted to be in a flutter. #atrial flutter/tachycardia/hypertension - converted to atrial flutter after Cardizem 10 Mg IV in the ED, failed Lopressor 5mg IV x3. Electrolytes stable, TSH WNL, CXR with mild congestive changes, H&H stable. With suspected mild cellulitis below however unlikely to be contributing. Most recent echocardiogram 07/2022 revealed mild LVH, mild AR, mild MR, EF 60 to 65%, grade 1 diastolic dysfunction, no wall motion abnormalities. - CTA pending at time of admission - start on Cardizem 30 mg TID, first dose on admission - Cardizem 10mg IV q4h prn for HR >120, SBP >185, or DBP >95 - echocardiogram ordered - IVF resuscitation with LR @ 100 ml/hr, received 500 ml NSS bolus in ED - heparin drip standard, no bolus ordered - ordered coag panel and antiXa - cardiology consulted - EKG prn with any chest pain - continue current reduced dose of hydrocortisone (reduced 01/22) from 20 mg Qam + 10 mg QPM to 20 mg QAM + 5mg QPM - monitor on tele - trend electrolytes #right buttocks cellulitis - Noted to have erythema of his right buttocks for several weeks. With mild leukocytosis, WBC 12.48 on admission however on chronic steroid therapy. Does have tachycardia, meeting criteria for SIRS however tachycardia otherwise explained by atrial flutter. Mild cellulitis however could be contributing to above so will cover with IV ABX with eventual transition to p.o. IV rocehpin ordered Sacral wound precautions Trend CBC #Pituitary adenoma follows with endocrinology, Dr. Shurgalla. s/p pituitary resection on chronic hydrocortisone therapy and testosterone pump. Recently decreased hydrocortisone as above. Continue decrease hydrocortisone dose, suspect hydrocortisone contributing to tachycardia Continue testosterone pump if able #hypothyroidismcontinue levothyroxine, TSH WNL on admission. #HTNholding losartan to allow for IV BP and HR control above, takes in evenings. VTE ppx: Heparin Dispo: PCU Admission and Anticipated Discharge Date Admission Date: 01/25/25 History of Present Illness Chief Complaint: tachycardia Primary Care Provider: Lilian Morse MD Patient is an 89-year-old male with past history of hypertension and pituitary adenoma s/p pituitary resection on chronic steroid treatment. Patient presented due to 2 to 3 weeks of elevated blood pressure and heart rate on numerous occasions lasted approximately 24 hours. He was found to have a heart rate of 146 and BP 157/101 on arrival. Heart rate trended down to 135 after Lopressor 5 Mg IV x 3 in the ED. EKG showed sinus tachycardia. He is being admitted further workup including heart rate control and echocardiogram. Patient seen at bedside. He stated for the past 2 to 3 weeks he has had several episodes of elevated blood pressure and heart rate that lasts from 12 to 24 hours and resolve on its own. As noted on the triage note he felt dizzy, lightheaded, and presyncopal however patient denies this. He stated he has had dyspnea exertion that comes and goes over the past week, denies any chest pain. He denies any history of DVT or PE. Recent endocrinology noted that he had a recent URI however patient again denies this. Patient's concierge receptionist evaluated him on 01/23 and recommended reducing his hydrocortisone due to the tachycardia, which the patient has done. He is currently using 20 mg/prednisone in the morning and 5 mg in the evening (previously 10 in the evening). Patient also has that he has had soreness of his right buttocks for several weeks and went to follow-up with dermatology who recommended hydrocortisone which has not been helping, evaluated bedside appears cellulitic and with mildly elevated white blood cell count we will treat with cellulitis. He denies any recent fevers or chills. His fluid intake has been well at home and he has been trying to drink water however does feel like he does not drink enough fluids. He is due for his evening medications including losartan and steroids. He wishes to be full code however would not want on care home support. Patient also notes that he has not had to use his as needed emergency hydrocortisone for several years. After admission, patient converted to atrial flutter with 4:1 AV conduction, rate 70. Allergies Allergy/AdvReac Type Severity Reaction Status Date / Time pollen extracts Allergy Intermediate WHEEZING,STUFFY Verified 01/25/25 18:31 NOSE atorvastatin AdvReac Intermediate MUSCLE Verified 01/25/25 18:31 ACHES, CRAMPING Home Medications Medication Instructions Recorded Confirmed Type fluticasone furoate 27.5 2 spray intranasal DAILY 12/22/22 01/25/25 History mcg/actuation nasal spray,suspension (Flonase Sensimist) azelastine 137 mcg (0.1 %) nasal 2 spray intranasal BID #30 mL 01/12/23 01/25/25 Rx spray losartan 50 mg tablet 50 mg PO DAILY #90 tabs 02/11/24 01/25/25 Rx levothyroxine 75 mcg tablet 75 mcg PO DAILY #90 tabs 10/24/24 01/25/25 Rx hydrocortisone 10 mg tablet 10 mg PO .COMPLEX #360 tabs 12/15/24 01/25/25 Rx testosterone 2 pump transdermal DAILY #75 grams 01/05/25 01/25/25 Rx hydrocortisone sod succinate 100 100 mg IM DAILY PRN Emergency dose 01/23/25 01/25/25 Rx mg solution for injection #1 ea (Solu-Cortef) ascorbic acid (vitamin C) 500 mg 500 mg PO DAILY 01/25/25 01/25/25 History tablet (Vitamin C) cholecalciferol (vitamin D3) 25 25 mcg PO DAILY 01/25/25 01/25/25 History mcg (1,000 unit) capsule (Vitamin D3) zinc gluconate 50 mg tablet 50 mg PO DAILY 01/25/25 01/25/25 History Past Med/Surg History Problem List (Updated 01/25/25 @ 20:54 by Sandra Minaya PA-C) Cellulitis of buttock, right Atrial flutter Dizziness (Acute) Tachycardia (Acute) Spell of dizziness Chronic sinusitis (Chronic) Glaucoma (Chronic) Diverticulosis (Chronic) 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) Prediabetes (Chronic) 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) Erectile dysfunction (Chronic) BPH (benign prostatic hyperplasia) (Chronic) Allergic rhinitis (Chronic) Hypertension (Chronic) Medical History Pituitary adenoma Surgical History History of mastoidectomy History of cataract surgery Trigger finger History of esophagogastroduodenoscopy (EGD) History of colonoscopy History of herniorrhaphy History of cholecystectomy History of tooth extraction History of tonsillectomy History of adenoidectomy Family History Brother Hypertension Coronary artery stenosis Gallbladder disease Mother Hypertension Gallbladder disease Sister Heart disease Father Cancer Denies family history of Ovarian cancer Prostate cancer Myocardial infarction Breast cancer Colorectal cancer Social History Smoking Status: Unknown if ever smoked Second Hand Exposure: Yes ( A CHILD); Do You Dip or Chew Tobacco: No; Hx Alcohol Use: No Hx Substance Use: No Preferred Language: Divehi Communication Ability: Effective Visual Impairment: Limited Hearing Ability: Use of Hearing Aid Cloth Pattern Maker Required: No Beliefs That Will Affect Care: None marital status: Current Living Situation: Spouse current occupational status: retired 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 How many Children do You have: 2 Other Information That Helps Us Care for You: No Feels Safe at Home: Yes Safety Concerns: Feels Safe At This Time Childhood Exposure to Second-Hand Smoke: Yes (Father) Diet: regular caffeine: Yes (Coffee/Tea AM) during the past year weight has: remained stable Dental Care, Regularly: Yes Physical Activity Frequency: Daily Seatbelt Use: always Sunscreen Use: No Assistive Devices: Denture - Upper, Glasses and Hearing Aid - Bilateral Review of Systems Review of Systems: see HPI Physical Exam Physical Exam: The patient is awake, alert and oriented 3, well developed and well nourished, normocephalic and atraumatic, in no acute distress. Non-toxic appearing. HEENT- EOMI, mucous membranes dry. Hearing grossly intact. Heart-normal S1 and S2. No murmurs, rubs or gallops. Tachycardia. Lungs-clear bilaterally, no respiratory distress, no accessory muscle use. Abdomen-normal bowel sounds and soft. No ascites noted. Non-tender. Extremities- no clubbing, cyanosis, or edema. Rheumatologic-normal range of motion. Psychiatric-normal affect. Skin: right buttocks with surrounding erythema - cellulitic appearing Results & Data Results & Data Vital Signs (Past 12 Hours) Vital Signs Temp Pulse Pulse Resp BP BP Pulse Ox 01/25/25 18:59 135 H 01/25/25 18:46 135 H 18 157/115 H 96 01/25/25 18:01 136 H 125/100 01/25/25 17:36 136 H 148/112 H 01/25/25 17:20 134 H 139/112 H 01/25/25 17:06 144 H 01/25/25 17:06 144 H 155/115 H 01/25/25 16:52 01/25/25 16:46 01/25/25 16:46 36.6 C 146 H 16 157/101 H 96 O2 Del Method 01/25/25 18:59 01/25/25 18:46 01/25/25 18:01 01/25/25 17:36 01/25/25 17:20 01/25/25 17:06 01/25/25 17:06 01/25/25 16:52 Room Air 01/25/25 16:46 Room Air 01/25/25 16:46 Laboratory Results Reviewed CBC, PT/INR, CMP, UA, troponin, mag, tsh Diagnostic Findings reviewed CXR CTA pending at time of admission Medications Administered ED - Opacified mg IV x 3, 500 mL NSS bolus AdmissionCardizem 10 Mg IV, heparin drip, LR at 100 ml/hr ECG Additional Comments: EKG with sinus tachycardia, rate 144, QTc 399 EKG after Cardizem revealed a flutter with 4-1 AV conduction, rate 70, QTc 423 Code Status & VTE Plan Code Status full code VTE Prophylaxis Plan VTE Prophylaxis will be ordered: Yes Supervising Physician Co-Signing Physician Notes Attending addendum: I have physically seen this patient, have supervised the medical residents activities, and agree with the H&P unless as otherwise noted. Assessment and Plan: The patient is an 89-year-old male with a past medical history including hypertension, pituitary adenoma status post pituitary resection on chronic steroid treatment, hypothyroidism, and testosterone deficiency. He presents to the emergency department with 2 to 3 weeks of elevated blood pressure and has had increased heart rate lasting approximately 24 hours. Upon arrival to the e mergency department, he was found to have a heart rate of 146 and blood pressure 157/101. He received Lopressor 5 mg IV x 3, with heart rate decreased to 135 and EKG showed sinus tachycardia. He then received Cardizem 10 mg IV, which decrease his heart rate to 70, and it failed atrial flutter rhythm. Atrial flutter/tachycardia/hypertension- From the ED received Lopressor 5 mg IV x 3, then Cardizem 10 mg IV x 1. The patient will be admitted to telemetry for serial cardiac enzymes, serial EKG's, cardiac rhythm monitoring and a 2-D echocardiogram with Dopplers. Start Cardizem 30 mg p.o. 3 times daily Cardizem 10 mg IV every 4 hours. Heart rate greater than 120 Received normal saline bolus 500 mL IV from the ED LR at 100 mL/h Started heparin drip standard dosing per protocol Pituitary adenoma status post pituitary resection- Endocrinology had planned on decreasing his hydrocortisone, which may be contributing to his tendency to a rapid heart rate Continue testosterone supplementation Hypothyroidism- Continue levothyroxine Check a TSH Right buttock cellulitis- By history had been present for several weeks He has been placing topical hydrocortisone on the area Placed on ceftriaxone 2 g IV every 24 hours Wound care consult PG Care Time/CCT Total # of Minutes Spent Total Time Spent with Patient: Total time spent is greater than 50% in coordination of care (as documented) at patient's floor/unit and/or counseling patient: Coding Level of Care Code 64363 INT INP/OBS CARE 3/75MIN Diagnoses Atrial flutter I48.92 Tachycardia R00.0 Hypertension I10 Cellulitis of buttock, right L03.317
[2025-01-25] MEDS: HEPARIN 25000 UNIT/500 ML D5W 25,000 UNITS/500 ML BAG IV SCH (20:26)
[2025-01-25] MEDS: Heparin IV Adult Wt-Based Standard *NO* INITIAL Bolus Protocol IV STA (20:30)
[2025-01-25 20:42] LABS: ANTI-Xa, UFH(UnfractionatedHep < 0.10 IU/ml (0.3-0.7)
[2025-01-25 20:51] LABS: Partial Thromboplastin Time 26 Seconds (21-31)
[2025-01-25] MEDS: cefTRIAXone SODIUM 1,000 MG/50 ML BAG IV STA (21:22)
[2025-01-25] MEDS ORDERED: ACETAMINOPHEN 325 MG TAB PO PRN (21:54)
[2025-01-25] MEDS ORDERED: MELATONIN 3 MG TAB PO PRN (21:54)
[2025-01-25] MEDS ORDERED: DOCUSATE SODIUM 100 MG CAP PO PRN (21:54)
[2025-01-25] MEDS ORDERED: ONDANSETRON INJ 2 MG/ML 2 ML VIAL IV PRN (21:54)
[2025-01-25] MEDS: AZELASTINE HCL 0.1% NASAL 200 SPRAYS/27,400 MCG BTL SCH (23:21)
[2025-01-26 02:56] LABS: Hematocrit (blood only) 39.2 % (42.0-52.0); Hemoglobin 13.4 g/dl (14.0-18.0); Immature Granulocytes # (auto) 0.06 K/uL (0.01-0.20); Immature Granulocytes % (auto) 0.6 %; Mean Corpuscular Hemoglobin 31.2 pg (25.0-34.0); Mean Corpuscular Volume 91.2 fL (80.0-100.0); Platelet Count 228 K/uL (130-400); RDW Standard Deviation 44.0 fL (36.4-46.3); Red Blood Count 4.30 M/uL (4.70-6.10); White Blood Count 10.39 K/ul (4.8-10.8)
[2025-01-26 03:05] VITALS: RESP 18
[2025-01-26 03:16] LABS: Alanine Aminotransferase 38.0 U/L (7-52); Albumin Globulin Ratio 1.2 (0.9-2); Alkaline Phosphatase 58.0 U/L (34-104); Anion Gap 4.0 (3-11); Bilirubin,Total 0.5 mg/dl (0.2-1.0); Blood Urea Nitrogen 19.0 mg/dl (6-23); Calcium 8.5 mg/dl (8.6-10.3); Carbon Dioxide 29.0 mmol/L (21-32); Chloride 105.0 mmol/L (98-107); Creatinine Clr Calc Pharmacy 57.8 ml/min; Globulin 2.6 gm/dl (2.5-4.0); Glucose 110.0 mg/dl (70-99(Fasting)); Magnesium 1.9 mg/dl (1.7-2.4); Potassium 4.3 mmol/L (3.5-5.1); Sodium 138.0 mmol/L (136-145); Total Protein 5.8 gm/dl (6.0-8.3)
[2025-01-26 03:28] LABS: ANTI-Xa, UFH(UnfractionatedHep 0.72 IU/ml (0.3-0.7)
[2025-01-26] MEDS: LEVOTHYROXINE SODIUM 75 MCG TABLET PO SCH (06:19)
--- NOTE | 2025-01-26 07:08 | Hospitalist Progress Note ---
Date of Service January 26, 2025 Assessment & Plan Admission and Anticipated Discharge Date Admission Date: January 25, 2025 Results & Data Results & Data Vital Signs (Past 12 Hours) Vital Signs Temp Pulse Pulse Resp BP BP BP 01/26/25 07:03 83 01/26/25 03:02 36.5 C 54 L 18 128/66 01/25/25 22:10 36.4 C L 50 L 16 129/84 01/25/25 21:54 01/25/25 21:29 84 18 154/96 H 01/25/25 21:04 77 01/25/25 20:30 70 153/84 H 01/25/25 20:05 70 01/25/25 20:00 135 H 18 136/107 H Pulse Ox Pulse Ox O2 Del Method O2 Del Method 01/26/25 07:03 01/26/25 03:02 96 Room Air 01/25/25 22:10 98 Room Air 01/25/25 21:54 97 Room Air 01/25/25 21:29 97 Room Air 01/25/25 21:04 01/25/25 20:30 01/25/25 20:05 01/25/25 20:00 97 PG Care Time/CCT Total # of Minutes Spent Total Time Spent with Patient: Total time spent is greater than 50% in coordination of care (as documented) at patient's floor/unit and/or counseling patient: Coding
[2025-01-26] MEDS: FLUTICASONE PROPIONATE NA SPR 16 GM BTL SCH (07:38)
[2025-01-26] MEDS: HYDROCORTISONE 10 MG TAB PO SCH (07:39)
[2025-01-26 07:58] VITALS: PULSE 86; TEMP 98.2; O2SAT 94
--- NOTE | 2025-01-26 09:47 | CT Scan Report ---
EXAM: CT Angiography Chest With Intravenous Contrast INDICATION: Tachycardia and hypertension. Dizziness. TECHNIQUE: Axial computed tomographic angiography images of the chest with intravenous contrast. Sagittal and coronal reformatted images were created and reviewed. This CT exam was performed using one or more of the following dose reduction techniques: automated exposure control, adjustment of the mA and/or kV according to patient size, and/or use of iterative reconstruction technique. MIP reconstructed images were created and reviewed. Images obtained 01/25/2025 6:30 PM. Study presented per my interpretation at approximately 9 AM 01/26/2025. CONTRAST: 119 ml of Optiray 320 was administered intravenously. COMPARISON: 01/09/2018 and 01/25/2025 FINDINGS: Pulmonary arteries: No abnormality noted. No pulmonary embolism. Aorta: There is atherosclerosis of the ectatic aorta. Enhancement is suboptimal due to detect dissection. No gross dissection or atherosclerotic plaque displacement. Lungs and pleural spaces: Diffuse septal thickening noted. Multifocal calcified and noncalcified micronodules unchanged or decreased. No bronchiectasis. No honeycombing. No consolidation. No significant effusion. No pneumothorax. Heart: The heart is enlarged most notably involving the left ventricle with stable thickening. No right heart strain. No significant pericardial effusion. Bones/joints: Degenerative changes noted throughout the spine. No acute osseous abnormality seen. Soft tissues: No abnormality noted. Lymph nodes: No abnormality noted. No enlarged lymph nodes. Gallbladder and bile ducts: Cholecystectomy. No ductal dilation or stone noted. IMPRESSION: 1. No pulmonary embolus noted. 2. Pulmonary edema. ACT 112: N/A Electronically signed by Jeanette Pedraza 01-26-2025 09:46 AM
--- NOTE | 2025-01-26 10:20 | Cardiology Consultation ---
Date of Consultation January 26, 2025 Assessment & Plan (1) Atrial flutter: Plan 1. Atrial flutter: He appears to have paroxysmal atrial flutter. Unusual for the arrhythmia to be paroxysmal, but definite flutter morphology on his EKG. Presumably isthmus dependent. Some extended episodes by report but otherwise minimal symptom. Notably elevated ventricular rates at times. We discussed options for treatment. I suggested catheter-based therapy as ablation has a high success rate in the circumstance with low risk. Ablation and elimination of the atrial fibrillation would obviate the need for any ongoing treatment or anticoagulation. He seems in favor and we will make arrangements to schedule this on an outpatient basis. Based on his risk factors he would benefit from systemic anticoagulation leading up to any procedure. He seems to be a good candidate for Eliquis 5 mg twice daily. Unclear if he would benefit from any regular metoprolol use. Episodes of cells are paroxysmal in nature. Metoprolol would not necessarily prevent episodes. He could be provided with some short acting low-dose metoprolol for use during episodes to control ventricular rates. Alternatively, given the few symptoms associated with the episodes and their paroxysmal nature, no therapy is required and we can simply work towards scheduling an ablation for a cure. History of Present Illness Reason for Consultation: Atrial flutter Requesting Physician: Rei Attending Physician: Sarbjit Sosa, History of Present Illness The patient is an 89-year-old gentleman without a known history of cardiac disease who presented to the hospital for symptoms of palpitations and tachycardia. Patient states that for over a month has been noticing intermittent episodes of a racing heartbeat. These tend to happen spontaneously and can last for several hours. During these episodes he feels somewhat fatigued, but otherwise has minimal symptoms. He did not endorse symptoms of limiting dyspnea or chest pain. Only mild dizziness at times but no presyncope or syncope. The episodes themselves tend to resolve and he can resume his usual activity. Due to the recurrent nature of these events he presented to the hospital yesterday for an evaluation and was discovered to have an atrial flutter with elevated ventricular rate. Patient was admitted and placed on anticoagulation. This morning he is feeling better. He states that he was tired earlier this morning and felt somewhat weak, but after eating breakfast is feeling better. In general he is an active individual who does not perform vigorous exercise but can perform his usual activities without limitation. Again, he denied exertional dyspnea or chest pain. No orthopnea at home. No lower extremity edema. Allergies Allergy/AdvReac Type Severity Reaction Status Date / Time pollen extracts Allergy Intermediate WHEEZING,STUFFY Verified 01/25/25 18:31 NOSE atorvastatin AdvReac Intermediate MUSCLE Verified 01/25/25 18:31 ACHES, CRAMPING Home Medications Medication Instructions Recorded Confirmed Type fluticasone furoate 27.5 2 spray intranasal DAILY 12/22/22 01/25/25 History mcg/actuation nasal spray,suspension (Flonase Sensimist) azelastine 137 mcg (0.1 %) nasal 2 spray intranasal BID #30 mL 01/12/23 01/25/25 Rx spray losartan 50 mg tablet 50 mg PO DAILY #90 tabs 02/11/24 01/25/25 Rx levothyroxine 75 mcg tablet 75 mcg PO DAILY #90 tabs 10/24/24 01/25/25 Rx hydrocortisone 10 mg tablet 10 mg PO .COMPLEX #360 tabs 12/15/24 01/25/25 Rx testosterone 2 pump transdermal DAILY #75 grams 01/05/25 01/25/25 Rx hydrocortisone sod succinate 100 100 mg IM DAILY PRN Emergency dose 01/23/25 01/25/25 Rx mg solution for injection #1 ea (Solu-Cortef) ascorbic acid (vitamin C) 500 mg 500 mg PO DAILY 01/25/25 01/25/25 History tablet (Vitamin C) cholecalciferol (vitamin D3) 25 25 mcg PO DAILY 01/25/25 01/25/25 History mcg (1,000 unit) capsule (Vitamin D3) zinc gluconate 50 mg tablet 50 mg PO DAILY 01/25/25 01/25/25 History Patient History Medical History Pituitary adenoma Surgical History History of mastoidectomy History of cataract surgery Trigger finger History of esophagogastroduodenoscopy (EGD) History of colonoscopy History of herniorrhaphy History of cholecystectomy History of tooth extraction History of tonsillectomy History of adenoidectomy Family History Brother Hypertension Coronary artery stenosis Gallbladder disease Mother Hypertension Gallbladder disease Sister Heart disease Father Cancer Denies family history of Ovarian cancer Prostate cancer Myocardial infarction Breast cancer Colorectal cancer Social History Smoking Status: Unknown if ever smoked Second Hand Exposure: Yes ( A CHILD); Do You Dip or Chew Tobacco: No; Hx Alcohol Use: No Hx Substance Use: No Preferred Language: Chinese Communication Ability: Effective Visual Impairment: Limited Hearing Ability: Use of Hearing Aid Sales Training Manager Required: No Beliefs That Will Affect Care: None marital status: Current Living Situation: Spouse current occupational status: retired 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 Mood and affect appeared normal. He answered all questions appropriately. HEENT: Pupils are equal and reactive to light and accommodation. Extraocular movements are intact. The sclerae are anicteric. Neuro: Cranial nerves intact Lungs: Clear to auscultation bilaterally. He has good air movement without use of accessory muscles. No rales wheezes or rhonchi. Cardiac: Heart demonstrates a regular rate and rhythm. Normal S1 and S2. No murmurs on examination. Pulses: The patient has palpable radial pulses bilaterally that are equal in intensity Extremities: There was no evidence of hypoperfusion. There is no cyanosis or clubbing. There is no edema. Skin: I did not appreciate any rashes on examination today. Results & Data Vital Signs (Past 12 Hours) Vital Signs Temp Pulse Pulse Resp BP Pulse Ox O2 Del Method 01/26/25 08:42 169/76 H 01/26/25 07:31 36.8 C 86 18 94 Room Air 01/26/25 07:30 Room Air 01/26/25 07:03 83 01/26/25 03:02 36.5 C 54 L 18 128/66 96 Room Air Laboratory Results Abnormal Lab Results 01/25/25 01/25/25 01/25/25 16:55 18:00 20:26 WBC 12.48 H RBC 4.98 Hgb 15.9 Hct 44.9 MCV 90.2 MCH 31.9 MCHC 35.4 RDW Std Deviation 42.0 RDW Coeff of Jose 12.8 Plt Count 281 MPV 11.0 Immature Gran % (Auto) 0.5 Neut % (Auto) 65.2 Lymph % (Auto) 24.4 Liberty % (Auto) 7.0 Eos % (Auto) 2.4 Baso % (Auto) 0.5 Neut # (Auto) 8.15 H Lymph # (Auto) 3.04 Liberty # (Auto) 0.87 H Eos # (Auto) 0.30 Baso # (Auto) 0.06 Immature Gran # (Auto) 0.06 PT 10.4 INR 1.0 APTT 26 PTT Ratio 1.0 Heparin Anti-Xa, Unfract < 0.10 L Sodium 138 Potassium 4.4 Chloride 106 Carbon Dioxide 25 Anion Gap 7 BUN 20 Creatinine 1.02 Est Cr Clr Drug Dosing 54.4 eGFR 70.69 BUN/Creatinine Ratio 19.6 Glucose 119 H Calcium 9.4 Phosphorus Magnesium 2.1 Total Bilirubin 0.4 AST 29 ALT 36 Alkaline Phosphatase 72 Troponin I High Sens 12.8 Total Protein 7.3 Albumin 3.9 Globulin 3.4 Albumin/Globulin Ratio 1.1 Lipase 28 TSH 1.045 Urine Color Yellow Urine Appearance Clear Urine pH 6.0 Ur Specific Jeffrey 1.010 Urine Protein Negative Urine Glucose (UA) Negative Urine Ketones Negative Urine Blood Negative Urine Nitrite Negative Urine Bilirubin Negative Urine Urobilinogen Negative Ur Leukocyte Esterase Negative Urine Comment 01/26/25 02:38 WBC 10.39 RBC 4.30 L Hgb 13.4 L Hct 39.2 L MCV 91.2 MCH 31.2 MCHC 34.2 RDW Std Deviation 44.0 RDW Coeff of Jose 13.2 Plt Count 228 MPV 11.1 Immature Gran % (Auto) 0.6 Neut % (Auto) 65.0 Lymph % (Auto) 24.2 Liberty % (Auto) 5.7 Eos % (Auto) 4.0 Baso % (Auto) 0.5 Neut # (Auto) 6.76 H Lymph # (Auto) 2.51 Liberty # (Auto) 0.59 Eos # (Auto) 0.42 Baso # (Auto) 0.05 Immature Gran # (Auto) 0.06 PT INR APTT PTT Ratio Heparin Anti-Xa, Unfract 0.72 H* Sodium 138 Potassium 4.3 Chloride 105 Carbon Dioxide 29 Anion Gap 4 BUN 19 Creatinine 0.96 Est Cr Clr Drug Dosing 57.8 eGFR 76.03 BUN/Creatinine Ratio 19.8 Glucose 110 H Calcium 8.5 L Phosphorus 2.6 Magnesium 1.9 Total Bilirubin 0.5 AST 31 ALT 38 Alkaline Phosphatase 58 Troponin I High Sens Total Protein 5.8 L D Albumin 3.2 L Globulin 2.6 Albumin/Globulin Ratio 1.2 Lipase TSH Urine Color Urine Appearance Urine pH Ur Specific Jeffrey Urine Protein Urine Glucose (UA) Urine Ketones Urine Blood Urine Nitrite Urine Bilirubin Urine Urobilinogen Ur Leukocyte Esterase Urine Comment Diagnostic Findings Chest CTA performed 01/25/2025: No evidence of pulmonary embolus. Pulmonary edema noted. Chest x-ray 01/25/2025: Mild pulmonary vascular congestion. PG Care Time/CCT Total # of Minutes Spent Total Time Spent with Patient: Total time spent is greater than 50% in coordination of care (as documented) at patient's floor/unit and/or counseling patient: Coding Level of Care Code 97256 INT INP/OBS CARE 3/75MIN Diagnoses Atrial flutter I48.92
[2025-01-26 10:34] LABS: ANTI-Xa, UFH(UnfractionatedHep 0.83 IU/ml (0.3-0.7)
[2025-01-26 11:56] VITALS: BP 153/84
--- NOTE | 2025-01-26 12:14 | XCELERA ---
[id number]
[2025-01-26] MEDS ORDERED: HYDROCORTISONE 10 MG TAB PO SCH (15:00)
--- NOTE | 2025-01-26 20:34 | Discharge Summary ---
Discharge Summary Date of Service January 26, 2025 Principal Dx & Hospital Course #1 = Principal Diagnosis (1) Atrial flutter with rapid ventricular response: (2) Decubitus ulcer of buttock, stage 1: Plan In summary this is an 89-year-old male who presented with persistent tachycardia without additional anginal symptoms for approximately 7 days prior to presentation. With regard to the patient's presenting tachycardia he was found to be in atrial flutter with a rapid ventricular response that was resolved after a bolus dose of Cardizem. He had no residual episodes of tachycardia during his hospitalization. Cardiology was consulted and they recommend pursuing outpatient atrial ablation for primary management, in the interim the patient will be anticoagulated by their recommendation on Eliquis 5 mg p.o. twice daily. Initially the patient was thought to have a cellulitis of the buttocks however on exam there is no evidence of cellulitis. There is, however, an area in the gluteal cleft overlying the sacrum is consistent with a stage I decubitus ulcer. Recommendations were provided the patient and orders were made during his hospital stay for wound care; similar topical care can be pursued in the outpatient setting. He was provided referral for a local wound care clinic for continued follow-up. Admission HPI Per Admitting Provider Patient is an 89-year-old male with past history of hypertension and pituitary adenoma s/p pituitary resection on chronic steroid treatment. Patient presented due to 2 to 3 weeks of elevated blood pressure and heart rate on numerous occasions lasted approximately 24 hours. He was found to have a heart rate of 146 and BP 157/101 on arrival. Heart rate trended down to 135 after Lopressor 5 Mg IV x 3 in the ED. EKG showed sinus tachycardia. He is being admitted further workup including heart rate control and echocardiogram. Patient seen at bedside. He stated for the past 2 to 3 weeks he has had several episodes of elevated blood pressure and heart rate that lasts from 12 to 24 hours and resolve on its own. As noted on the triage note he felt dizzy, lightheaded, and presyncopal however patient denies this. He stated he has had dyspnea exertion that comes and goes over the past week, denies any chest pain. He denies any history of DVT or PE. Recent endocrinology noted that he had a recent URI however patient again denies this. Patient's crayon grader evaluated him on 01/23 and recommended reducing his hydrocortisone due to the tachycardia, which the patient has done. He is currently using 20 mg/prednisone in the morning and 5 mg in the evening (previously 10 in the evening). Patient also has that he has had soreness of his right buttocks for several weeks and went to follow-up with dermatology who recommended hydrocortisone which has not been helping, evaluated bedside appears cellulitic and with mildly elevated white blood cell count we will treat with cellulitis. He denies any recent fevers or chills. His fluid intake has been well at home and he has been trying to drink water however does feel like he does not drink enough fluids. He is due for his evening medications including losartan and steroids. He wishes to be full code however would not want on alf support. Patient also notes that he has not had to use his as needed emergency hydrocortisone for several years. After admission, patient converted to atrial flutter with 4:1 AV conduction, rate 70. Discharge Exam General: Elderly male in no acute distress Vital Signs: Reviewed HEENT: Pupils equally round reactive to light; extraocular motion intact; moist mucous membranes Pulmonary: Symmetric chest wall excursion without restrictions; lungs clear to auscultation bilaterally Cardiovascular: Regular rate and rhythm without murmurs, rubs, or gallops; S1 and S2 normal; bilateral radial pulse 2+ Skin: In the midline gluteal fold overlying the sacrum there is a 6 cm x 4 cm area of very soft erythema that is nontender to palpation with 2 symmetric 1 cm diameter circular epithelial defects consistent with a stage I decubitus ulcer Discharge Plan Discharge Items Patient Disposition: Home - Self-Care Reason For Visit: NEW ONSET A FLUTTER Discharge Diagnosis: Atrial flutter with rapid ventricular repsonse; first degree sacral decubitus ulcer Condition on Discharge: Fair Activity: Per Instructions section Non-emergency contact: Primary Care Provider and Detention Deputy Call non-emergency contact if: you have any medication questions and your sympto ms worsen Follow-up/Referrals: Crystal Brambila CRNP [Nurse Practitioner] - (Continued care for sacral decubitus ulcer, stage 1) Lilian Morse MD [Primary Care Provider] - 02/02/25 11:00 am (Primary care hospital follow up scheduled on 02/02/25 at 11:00 with Nehal BENZ) Walter Lund MD [Physician] - (Atrial flutter with RVR; outpatient ablation coordination) Diet: Regular Fluids: 1800ml (7 cups) Addtl Attending Provider Instructions: You were admitted to [facility] for atrial flutter with sustained tachycardia. With respect to your presenting tachycardia, it was found that you were in a sustained rhythm called atrial flutter with a persistently rapid rate. After review of your case with cardiology, they recommend outpatient coordination for an ablation, a procedure that helps resolve this rhythm. Given your risk factors for developing a clot as a consequence of this rhythm, and to reduce your risk of future medical conditions including the potential for stroke, they recommend initiation of Eliquis 5 mg p.o. twice daily, which will be prescribed at discharge. There is initial concern at your admission for possible cellulitis of the right buttock; on exam today, there is no evidence of infection nor is there laboratory evidence to suggest an underlying infectious process. This appears to be what is described as a decubitus ulcer, consequential of prolonged periods of sitting with accumulating moisture causing damage to the affected skin. A referral has been provided at discharge for continued care in the outpatient setting with a wound care nurse; recommend daily replacement of a foam pad or offsetting weight from this area in order to avoid progression of this injury. Thank you for choosing [facility] as your healthcare provider. Pending Studies at Discharge: No Stand-Alone Forms: My [facility] Medications and DC Order Prescriptions: New Eliquis 5 mg tablet 5 mg PO BID 30 Days Qty: 60 0RF Continued azelastine 137 mcg (0.1 %) aerosol,spray 2 spray intranasal BID Qty: 30 1RF Rx Instructions: administer into each nostril losartan 50 mg tablet 50 mg PO DAILY Qty: 90 3RF levothyroxine 75 mcg tablet 75 mcg PO DAILY Qty: 90 1RF Rx Instructions: 6m rx needed for PACE hydrocortisone 10 mg tablet 10 mg PO .COMPLEX Qty: 360 1RF Rx Instructions: 10 mg PO Take 2 tablets in the morning and one tablet 8 hours later; may take extra for stress dosing. testosterone 20.25 mg/1.25 gram (1.62 %) gel in metered-dose pump 2 pump TD DAILY Qty: 75 5RF Flonase Sensimist 27.5 mcg/actuation spray,suspension 2 spray intranasal DAILY Rx Instructions: into each nostril hydrocortisone sod succinate [Solu-Cortef] 100 mg recon soln 100 mg IM DAILY PRN (Reason: Emergency dose) Qty: 1 3RF ascorbic acid (vitamin C) [Vitamin C] 500 mg Tablet 500 mg PO DAILY Rx Instructions: PER PT'S SPOUSE "DOESN'T TAKE EVERY DAY". zinc gluconate 50 mg Tablet 50 mg PO DAILY Rx Instructions: PER PT'S SPOUSE "DOESN'T TAKE EVERY DAY". cholecalciferol (vitamin D3) [Vitamin D3] 25 mcg (1,000 unit) Capsule 25 mcg PO DAILY Discharge Orders: Discharge Order (Routine); Ordered 01/26/25 Ordered By: Sarbjit Carter/Other Patient Handouts: Preventing Pressure Sores, Understanding Atrial Flutter, Cardiac Procedures Admission Data Admit Date/Time: 01/25/25 20:16 Attending Provider: Sarbjit Sosa Admit Provider: Dada Meza Primary Care Provider: Lilian Morse. Other Providers: Dada Meza; Walter Lund Other Interventions: Discharge Summary Assessment (RN) Last Done: 01/26/25 11:56 Hospital Stay Data Consultations 01/25/25 19:32 ED Decision to Admit Stat 01/25/25 21:54 Consult Cardiology Routine Diagnostic Imagining Performed 01/25/25 17:00 CT angio chest PE protocol Stat Pending Results Patient Have Any Pending Studies at Discharge: No Discharge Instructions Given to Patient (Per Discharging Provider) You were admitted to [facility] for atrial flutter with sustained tachycardia. With respect to your presenting tachycardia, it was found that you were in a sustained rhythm called atrial flutter with a persistently rapid rate. After review of your case with cardiology, they recommend outpatient coordination for an ablation, a procedure that helps resolve this rhythm. Given your risk factors for developing a clot as a consequence of this rhythm, and to reduce yo ur risk of future medical conditions including the potential for stroke, they recommend initiation of Eliquis 5 mg p.o. twice daily, which will be prescribed at discharge. There is initial concern at your admission for possible cellulitis of the right buttock; on exam today, there is no evidence of infection nor is there laboratory evidence to suggest an underlying infectious process. This appears to be what is described as a decubitus ulcer, consequential of prolonged periods of sitting with accumulating moisture causing damage to the affected skin. A referral has been provided at discharge for continued care in the outpatient setting with a wound care nurse; recommend daily replacement of a foam pad or offsetting weight from this area in order to avoid progression of this injury. Thank you for choosing [facility] as your healthcare provider. Total Time Total Time Spent Total Time Spent (In Minutes): I personally spent 90 minutes on today's discharge including review of the patient's presenting HPI emergency department documentation, laboratory assessment from the time of the patient's admission through the morning of 01/26, coordination of the patient's discharge with cardiology with referral for continued care in the outpatient setting, wound care management as detailed in his plan of care and referral to outpatient wound care clinic for continued care Coding Level of Care Code INP/OBS EV SAME DAY LV 3,85MIN Diagnoses Atrial flutter with rapid ventricular response I48.92 Decubitus ulcer of buttock, stage 1 L89.301
[2025-01-26] MEDS ORDERED: cefTRIAXone SODIUM 1,000 MG/50 ML BAG IV SCH (20:45)
--- NOTE | 2025-01-27 10:40 | Electrocardiogram Report ---
Test Reason : Blood Pressure : */* mmHG Vent. Rate : 132 BPM Atrial Rate : 132 BPM P-R Int : 200 ms QRS Dur : 114 ms QT Int : 272 ms P-R-T Axes : -75 -40 89 degrees QTcB Int : 403 ms atrial flutter Left axis deviation Moderate voltage criteria for LVH, may be normal variant Abnormal ECG When compared with ECG of 25-Jan-2025 16:54, (unconfirmed) atrial flutter has replaced Sinus rhythm Confirmed by Walter Lund ([id number]) on 01/27/2025 10:39:54 AM Referred By: REFERRED SELF Confirmed By: Walter Lund
--- NOTE | 2025-01-27 11:41 | Electrocardiogram Report ---
Test Reason : Blood Pressure : */* mmHG Vent. Rate : 144 BPM Atrial Rate : 144 BPM P-R Int : 144 ms QRS Dur : 122 ms QT Int : 258 ms P-R-T Axes : * -41 110 degrees QTcB Int : 399 ms atrial flutter Left axis deviation Left ventricular hypertrophy with QRS widening and repolarization abnormality When compared with ECG of 15-Sep-2017 18:51, DE interval has decreased Vent. rate has increased by 84 bpm Non-specific change in ST segment in Anterior leads ST now depressed in Lateral leads T wave inversion now evident in Lateral leads Confirmed by Walter Lund ([id number]) on 01/27/2025 11:41:38 AM Referred By: REFERRED SELF Confirmed By: Walter Lund
--- NOTE | 2025-01-28 12:19 | Coding Query ---
CODING QUERY To promote full compliance with coding requirements relating to patient care, provider participation is requested in all cases of medical record coder uncertainty. Please assist us with the question(s) below: Coding Question(s): The ER documents, adrenal insufficiency as a chronic condition affecting care. Please specify below in your clinical opinion, regarding adrenal insufficiency: ( xx ) agree that adrenal insufficiency is a chronic condition affecting care during this admission ( ) adrenal insufficiency is not a chronic condition affecting care during this admission Physician's Response(s): Thank you Eunice Hayward Principal Diagnosis: "that condition established after study, to be chiefly responsible for occasioning the admission of the patient to the hospital for care." Co-Existing Principal Diagnosis: "when two or more diagnoses equally meet the criteria for principal diagnosis as determined by the circumstances of admission, diagnostic work up, and/or therapy provided, and the Alphabetic Index, Tabular List, or another coding guideline does not provide sequencing direction, any one of the diagnoses may be sequenced first." "When the physician has documented what appears to be a current diagnosis in the body of the record, but has not included the diagnosis in the final diagnostic statement, the physician should be asked whether the diagnosis should be added." (Source Coding [facility] 2 QTR90. p3-4) VISHAL
--- NOTE | 2025-01-30 10:34 | Electrocardiogram Report ---
Test Reason : Blood Pressure : */* mmHG Vent. Rate : 70 BPM Atrial Rate : 280 BPM P-R Int : * ms QRS Dur : 118 ms QT Int : 392 ms P-R-T Axes : 267 -22 57 degrees QTcB Int : 423 ms Atrial flutter with 4:1 A-V conduction Left ventricular hypertrophy with QRS widening Abnormal ECG When compared with ECG of 25-Jan-2025 19:18, Atrial flutter has replaced Ectopic atrial rhythm Vent. rate has decreased by 62 bpm Nonspecific T wave abnormality has replaced inverted T waves in Lateral leads Confirmed by Walter Lund ([id number]) on 01/30/2025 10:34:25 AM Referred By: REFERRED SELF Confirmed By: Walter Lund
== END 2025-01-26 13:11 | disposition home or self-care (01) ==
LOC: ED 16:46 → SUATTDRO 20:16 → 2S 20:16 → INTOOBSV 20:16 → 2S 21:29